=== PATIENT | female | born 1935 | race Caucasian/White ===

== ENCOUNTER → 2018-01-07 11:54 | Outpatient (CLI) | payer OTHER, SELFPAY | PROVIDERS: Family Provider Family Medicine; PCP Family Medicine; Visit Provider Physician Assistant | DX: N39.0 Urinary tract infection, site not specified (principal) | CPT/HCPCS: 87086 ==

== ENCOUNTER 2018-01-08 14:07 | Emergency (ER) | payer OTHER, SELFPAY ==
[2018-01-08] VITALS (8 sets, daily range): BP systolic 96–124; BP diastolic 41–76; PULSE 60–68; RESP 15–22; TEMP 37.2–37.8; O2SAT 93–96
--- NOTE | 2018-01-08 14:32 | PC.NURSE ---
Attempt to void. Unable.
[2018-01-08 15:31] LABS: Add Manual Diff / Slide Review NO; Basophils Percent Auto 0.5 % (0-2); Eosinophils Percent Auto 0.4 % (2-4); Hematocrit 38.2 % (36-46); Hemoglobin 12.8 g/dL (12.0-16.0); Lymphocytes Percent Auto 4.5 % (25-40); Mean Corpuscular HGB Conc 33.5 % (30-36); Mean Corpuscular Hemoglobin 30.7 PG (26-34); Mean Corpuscular Volume 91.6 fL (80-100); Monocytes Percent Auto 5.8 % (3-14); Neutrophils Absolute Auto 12100 /uL (3000-5900); Neutrophils Percent Auto 88.8 % (50-75); Platelet Count 187 X10^3/uL (150-400); Red Blood Cell Count 4.17 X10^6/uL (4.0-5.2); White Blood Cell Count 13.6 X10^3/uL (4.5-11.0)
[2018-01-08] MEDS: SODIUM CHLORIDE 0.9% 1,000 ML 150 ML IV (15:33)
[2018-01-08 15:41] LABS: Alanine Aminotransferase 26 IU/L (9-52); Albumin 4.3 g/dL (3.5-5.0); Albumin Globulin Ratio 1.4 (1.0-2.8); Alkaline Phosphatase 56 U/L (38-126); Aspartate Aminotransferase 28 IU/L (14-36); Blood Urea Nitrogen 28 mg/dL (7-17); Calcium 9.2 mg/dL (8.4-10.2); Carbon Dioxide 25 mmol/L (22-32); Chloride 103 mmol/L (98-107); Estimated Glomerular Filt Rate > 60.0 mL/min (>60); Glucose 129 mg/dL (80-110); HEMOLYSIS < 15 (0-50); Lipase 70 U/L (23-300); Potassium 4.1 mmol/L (3.4-5.1); Sodium 140 mmol/L (137-145); Total Protein 7.3 g/dL (6.3-8.2)
[2018-01-08 15:46] LABS: Lactate (Lactic Acid) 1.7 mmol/L (0.7-2.1)
--- NOTE | 2018-01-08 16:23 | ED_ITS ---
HPI - Abdominal Pain General Chief Complaint: Abdominal Pain Stated Complaint: PAIN RIGHT SIDE,NAUSEA Time Seen by Provider: 01/08/18 15:28 Source: patient and family Mode of arrival: ambulatory Limitations: no limitations History of Present Illness HPI narrative: This 82-year-old female comes in with her daughter today due to vomiting and pain in the right flank area. She developed dysuria and some urinary urgency/frequency yesterday and was seen at the walk-in clinic. She was started on Macrobid. She states that in the middle of the night, she had 2 episodes of vomiting and has felt nauseated. She has tolerated water today but has not had food. She states that pain is much better now, largely resolved. She denies fever, chills, or sweats. She denies any chest pain or dyspnea. No new pain or swelling in her extremities. She feels like the urinary frequency and dysuria are somewhat better today Related Data Home Medications Medication Instructions Recorded Confirmed Disabled Parking Permit 1 dev MISCELLANEOUS DIRECTED 01/08/18 01/08/18 metoprolol tartrate 75 mg PO BID 01/08/18 01/08/18 phenazopyridine 100 mg PO TID PRN 01/08/18 01/08/18 Previous Rx's Medication Instructions Recorded citalopram 10 mg PO QDAY #90 tab 07/16/17 hydroxyzine HCl 25 mg tablet 25 mg PO TID PRN #30 tab 10/02/17 losartan [Cozaar] 50 mg PO QDAY #90 tab 10/29/17 warfarin 5 mg tablet 5 mg PO SEE INSTRUCTIONS #90 tab 11/27/17 donepezil 5 mg tablet 2.5 mg PO BEDTIME #30 tab 12/15/17 nitrofurantoin 100 mg PO BID 7 Days #14 cap 01/07/18 monohydrate/macrocrystals 100 mg capsule ciprofloxacin HCl [Cipro] 500 mg PO BID #14 tab 01/08/18 ondansetron HCl [Zofran] 4 mg PO Q8-12H PRN #4 tab 01/08/18 Allergies Allergy/AdvReac Type Severity Reaction Status Date / Time lisinopril [LISINOPRIL] Allergy Mild cough Verified 01/08/18 14:18 Barbiturates AdvReac Mild HALLUCINATI Verified 01/08/18 14:18 ONS gabapentin [GABAPENTIN] AdvReac Mild dizziness Verified 01/08/18 14:18 hydrochlorothiazide AdvReac Mild dizziness Verified 01/08/18 14:18 [HYDROCHLOROTHIAZIDE] tramadol [TRAMADOL] AdvReac Mild dizziness Verified 01/08/18 14:18 triamterene [TRIAMTERENE] AdvReac Mild dizziness Verified 01/08/18 14:18 Review of Systems Review of Systems All systems reviewed & are unremarkable except as noted in HPI and below PFSH Medical History UTI (urinary tract infection) (Chronic) Hyperlipidemia (Chronic) Essential hypertension (Chronic) Chronic atrial fibrillation (Chronic 10/13/12) On anticoagulant therapy (Chronic 11/03/12) Presence of cardiac pacemaker (Chronic 09/20/14) 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 HEENT: PERRL, EOMI, no scleral icterus NECK: Supple LUNGS: Clear to auscultation bilaterally. HEART: Rate and rhythm regular, normal S1 and S2, no S3 or S4. ABDOMEN: Soft, nondistended, bowel sounds present x 4 quadrants, no masses palpable, no hepatosplenomegaly. Very minimal right flank/upper quadrant tenderness without guarding or rebound. This is difficult to reproduce. EXTREMITIES: No edema, no cyanosis DERMATOLOGIC: No jaundice or exanthem NEUROLOGIC: Alert and oriented with normal speech and coordination Initial Vital Signs Initial Vital Signs: Vital Signs Temperature 100.1 F H 01/08/18 14:18 Pulse Rate 67 01/08/18 14:18 Respiratory Rate 15 01/08/18 14:18 Blood Pressure 124/68 H 01/08/18 14:18 Pulse Oximetry 94 01/08/18 14:18 Course Additional Information: Reviewed findings with Dr. Dobbs who agrees reasonable to treat for pyelonephritis as an outpatient. Patient is afebrile prior to discharge, tolerating food and fluids, and reports pain resolved. She did agree to return if any acutely worsening symptoms again as in that case would need further workup. Her daughter is agreeable with this as well. Discussed black box warning on Cipro but that this is the preferred class of antibiotics for outpatient treatment of pyelonephritis. She does have atrial fibrillation and on warfarin, and was advised of the importance of close follow-up and to have her INR checked in the next couple of days as well. Advised pharmacy to proceed with rx. Reviewed with Dr. Cardoso who is in agreement. Orders Ordered: ED Orders 01/08/18 14:40 Lactate (Lactic Acid) Stat 01/08/18 14:46 Complete Blood Count AUTO DIFF Stat Comprehensive Metabolic Panel Stat Lipase Stat 01/08/18 16:25 Urinalysis and Microscopic Stat Urine Culture Stat Discontinued Medications Sodium Chloride (Normal Saline 0.9%) 1,000 mls @ 150 mls/hr IV CONT JOHN Last Infusion: 01/08/18 18:36 Dose: 0 mls/hr Admin: 01/08/18 15:33 Dose: 150 mls/hr Ondansetron HCl (Zofran) 4 mg IV NOW ONE Stop: 01/08/18 16:20 Last Admin: 01/08/18 16:24 Dose: 4 mg Vital Signs - 8 hr 01/08/18 14:18 01/08/18 15:50 01/08/18 16:26 Temperature 100.1 F H 99.0 F Pulse Rate 67 64 Respiratory Rate 15 18 Blood Pressure 124/68 H Blood Pressure [Right Arm] 110/45 L Pulse Oximetry 94 94 01/08/18 16:49 01/08/18 16:57 01/08/18 17:06 Temperature 99.0 F Pulse Rate 65 68 Respiratory Rate 22 19 Blood Pressure Blood Pressure [Right Arm] 115/42 L 96/41 L Pulse Oximetry 93 95 01/08/18 17:45 01/08/18 18:23 Temperature Pulse Rate 67 60 Respiratory Rate 21 19 Blood Pressure Blood Pressure [Right Arm] 111/58 L 96/76 Pulse Oximetry 94 96 MDM - Abdominal Pain Lab Data Result diagrams: 01/08/18 14:46 01/08/18 14:46 Lab Results 01/08/18 01/08/18 01/08/18 Range/Units 14:40 14:46 14:46 WBC 13.6 H (4.5-11.0) X10^3/uL RBC 4.17 (4.0-5.2) X10^6/uL Hgb 12.8 (12.0-16.0) g/dL Hct 38.2 (36-46) % MCV 91.6 (80-100) fL MCH 30.7 (26-34) PG MCHC 33.5 (30-36) % RDW 13.0 (11.6-14.8) % Plt Count 187 (150-400) X10^3/uL Neut % (Auto) 88.8 H (50-75) % Lymph % (Auto) 4.5 L (25-40) % [place] % (Auto) 5.8 (3-14) % Eos % (Auto) 0.4 L (2-4) % Baso % (Auto) 0.5 (0-2) % Neut # (Auto) 63016 H (6692-6627) /uL Sodium 140 (137-145) mmol/L Potassium 4.1 (3.4-5.1) mmol/L Chloride 103 (98-107) mmol/L Carbon Dioxide 25 (22-32) mmol/L BUN 28 H (7-17) mg/dL Creatinine 0.80 (0.52-1.04) mg/dL Estimated GFR > 60.0 (>60) mL/min BUN/Creatinine Ratio 35.0 H (6-22) Glucose 129 H (80-110) mg/dL Lactate 1.7 (0.7-2.1) mmol/L Calcium 9.2 (8.4-10.2) mg/dL Total Bilirubin 1.0 (0.2-1.3) mg/dL AST 28 (14-36) IU/L ALT 26 (9-52) IU/L Alkaline Phosphatase 56 (38-126) U/L Total Protein 7.3 (6.3-8.2) g/dL Albumin 4.3 (3.5-5.0) g/dL Globulin 3.0 (1.7-4.1) g/dL Albumin/Globulin Ratio 1.4 (1.0-2.8) Lipase 70 (23-300) U/L Urine Color Urine Appearance Urine pH (4.5-8.0) Ur Specific [place] (1.000-1.035) Urine Protein (Negative) Urine Glucose (UA) (Normal) g/dL Urine Ketones (NEGATIVE) Urine Occult Blood (Negative) Urine Nitrate (Negative) Urine Bilirubin (NEGATIVE) Urine Urobilinogen (0.2) E.U./dL Ur Leukocyte Esterase (NEGATIVE) Urine RBC (0-5/HPF) Urine WBC (0-5/HPF) Urine Bacteria (None) Ur Culture Indicated? Micro UA Comment 01/08/18 Range/Units 16:25 WBC (4.5-11.0) X10^3/uL RBC (4.0-5.2) X10^6/uL Hgb (12.0-16.0) g/dL Hct (36-46) % MCV (80-100) fL MCH (26-34) PG MCHC (30-36) % RDW (11.6-14.8) % Plt Count (150-400) X10^3/uL Neut % (Auto) (50-75) % Lymph % (Auto) (25-40) % [place] % (Auto) (3-14) % Eos % (Auto) (2-4) % Baso % (Auto) (0-2) % Neut # (Auto) (8867-1324) /uL Sodium (137-145) mmol/L Potassium (3.4-5.1) mmol/L Chloride (98-107) mmol/L Carbon Dioxide (22-32) mmol/L BUN (7-17) mg/dL Creatinine (0.52-1.04) mg/dL Estimated GFR (>60) mL/min BUN/Creatinine Ratio (6-22) Glucose (80-110) mg/dL Lactate (0.7-2.1) mmol/L Calcium (8.4-10.2) mg/dL Total Bilirubin (0.2-1.3) mg/dL AST (14-36) IU/L ALT (9-52) IU/L Alkaline Phosphatase (38-126) U/L Total Protein (6.3-8.2) g/dL Albumin (3.5-5.0) g/dL Globulin (1.7-4.1) g/dL Albumin/Globulin Ratio (1.0-2.8) Lipase (23-300) U/L Urine Color Yellow Urine Appearance Clear Urine pH 6.0 (4.5-8.0) Ur Specific [place] 1.025 (1.000-1.035) Urine Protein 1+ H (Negative) Urine Glucose (UA) Negative (Normal) g/dL Urine Ketones Negative (NEGATIVE) Urine Occult Blood 3+ H (Negative) Urine Nitrate Positive H (Negative) Urine Bilirubin Negative (NEGATIVE) Urine Urobilinogen 0.2 (0.2) E.U./dL Ur Leukocyte Esterase Trace H (NEGATIVE) Urine RBC 10-30/hpf H (0-5/HPF) Urine WBC 5-10/hpf H (0-5/HPF) Urine Bacteria None seen (None) Ur Culture Indicated? Specimen cultured Micro UA Comment Not Reportable Discharge Plan Departure Patient Disposition: Home, Self-Care Clinical Impression: Acute pyelonephritis Discharge Date/Time: 01/08/18 18:55 Interventions: ED Discharge Assessment Last Done: 01/08/18 18:54 Instructions: DI for Kidney Infection Activity Restrictions/Additional Instructions: Based on your exam and findings today it appears that you have a kidney infection rather than a simple bladder infection. Please discontinue the antibiotic you were prescribed yesterday, and change to ciprofloxacin, which I have sent to the pharmacy for you. Take that twice daily for the next week. I have also sent a prescription for a few nausea pills to the pharmacy in case you need them. You should return as we talked about if you are feeling worse again, i.e. if you start to have vomiting or any worsening pain again, or new fevers at home, because we do not have your urine culture back yet from today. As we discussed, we will want to do further testing if you are worse again or not getting better. Please be sure to call your PCP 1st thing tomorrow as you should repeat your INR in the next couple of days while on the antibiotics and you should be seen for follow-up in the next few days as well. Prescriptions: New ondansetron HCl [Zofran] 4 mg tablet 4 mg PO Q8-12H PRN (Reason: nausea and vomiting) Qty: 4 RF: 0 ciprofloxacin HCl [Cipro] 500 mg tablet 500 mg PO BID Qty: 14 RF: 0 No Action hydroxyzine HCl 25 mg tablet 25 mg PO TID PRN (Reason: pruritus) Qty: 30 RF: 0 nitrofurantoin monohyd/m-cryst 100 mg capsule 100 mg PO BID 7 Days Qty: 14 RF: 0 citalopram 10 MG tablet 10 mg PO QDAY Qty: 90 RF: 1 losartan [Cozaar] 50 mg tablet 50 mg PO QDAY Qty: 90 RF: 3 warfarin [Coumadin] 5 mg tablet 5 mg PO SEE INSTRUCTIONS Qty: 90 RF: 3 donepezil [Aricept] 5 mg tablet 2.5 mg PO BEDTIME Qty: 30 RF: 1 metoprolol tartrate 50 mg Tablet 75 mg PO BID RF: 0 Disabled Parking Permit 1 dev miscellaneous DIRECTED RF: 0 phenazopyridine 100 mg Tablet 100 mg PO TID PRN (Reason: pain) RF: 0 Referrals: Zane Shine MD [Primary Care Provider] -
[2018-01-08] MEDS: ONDANSETRON 4 MG/2 ML INJ IV (16:24)
[2018-01-08 16:56] LABS: Bacteria Urine None Seen
[2018-01-08 17:04] LABS: Appearance Urine UA CLEAR; Bilirubin Urine UA NEGATIVE (NEGATIVE); Color Urine UA YELLOW; Glucose Urine UA NEGATIVE (Normal); Ketones Urine UA NEGATIVE (NEGATIVE); Leukocyte Esterase Urine UA TRACE (NEGATIVE); Nitrite Urine UA POSITIVE (Negative); Occult Blood Urine UA 3+ (Negative); Protein Urine UA 1+ (Negative); Specific Gravity Urine UA 1.025 (1.000-1.035); Urobilinogen Urine UA 0.2 E.U./dL (0.2)
[2018-01-08 17:11] LABS: RBC Urine 10-30/HPF (0-5/HPF); WBC Urine 5-10/HPF (0-5/HPF)
[2018-01-08 17:12] LABS: Culture Indicated Urine Specimen Cultured
== END 2018-01-08 18:55 | disposition home or self-care (01) ==
LOC: ED 14:10 → AC 14:18
PROVIDERS: Emergency Provider Internal Medicine; Family Provider Family Medicine; PCP Family Medicine
DX: N12 Tubulo-interstitial nephritis, not specified as acute or chronic (principal)
CPT/HCPCS: 36591; 80053; 81001; 83605; 83690; 85025; 87086; 96361; 96374; 99283; 99284; J2405

== ENCOUNTER 2018-01-10 17:24 | Emergency (ER) | payer OTHER, SELFPAY ==
[2018-01-10 17:31] VITALS: BP 138/72; PULSE 60; RESP 18; TEMP 36.4; O2SAT 97
--- NOTE | 2018-01-10 17:32 | ED.GENADULT ---
HPI - General Adult <Brien EspinolexxkarenBARB - Last Filed: 01/10/18 22:03> General Chief complaint: GI Bleed Stated complaint: RECHECK FOR LABS,INR Time Seen by Provider: 01/10/18 17:29 Source: patient Mode of arrival: ambulatory Limitations: no limitations History of Present Illness HPI narrative: 82-year-old female recently treated for pyelonephritis with ciprofloxacin a couple of days ago here for recheck of her labs. She is concerned because she saw some blood on the toilet paper when she wiped earlier today after having a bowel movement. She states that she only had blood on the toilet paper when she wiped no continuous bleeding. She denies any trauma to the area. She states no bleeding at this time. She reports that her urinary symptoms have improved since taking the antibiotics. No fevers no chills no nausea or vomiting. She denies having any abdominal pain at this time. Related Data Home Medications Medication Instructions Recorded Confirmed Disabled Parking Permit 1 dev MISCELLANEOUS DIRECTED 01/08/18 01/08/18 metoprolol tartrate 75 mg PO BID 01/08/18 01/08/18 phenazopyridine 100 mg PO TID PRN 01/08/18 01/08/18 Previous Rx's Medication Instructions Recorded citalopram 10 mg PO QDAY #90 tab 07/16/17 hydroxyzine HCl 25 mg tablet 25 mg PO TID PRN #30 tab 10/02/17 losartan [Cozaar] 50 mg PO QDAY #90 tab 10/29/17 warfarin 5 mg tablet 5 mg PO SEE INSTRUCTIONS #90 tab 11/27/17 donepezil 5 mg tablet 2.5 mg PO BEDTIME #30 tab 12/15/17 nitrofurantoin 100 mg PO BID 7 Days #14 cap 01/07/18 monohydrate/macrocrystals 100 mg capsule ciprofloxacin HCl [Cipro] 500 mg PO BID #14 tab 01/08/18 ondansetron HCl [Zofran] 4 mg PO Q8-12H PRN #4 tab 01/08/18 Allergies Allergy/AdvReac Type Severity Reaction Status Date / Time lisinopril [LISINOPRIL] Allergy Mild cough Verified 01/08/18 14:18 Barbiturates AdvReac Mild HALLUCINATI Verified 08/09/18 14:18 ONS gabapentin [GABAPENTIN] AdvReac Mild dizziness Verified 01/08/18 14:18 hydrochlorothiazide AdvReac Mild dizziness Verified 01/08/18 14:18 [HYDROCHLOROTHIAZIDE] tramadol [TRAMADOL] AdvReac Mild dizziness Verified 01/08/18 14:18 triamterene [TRIAMTERENE] AdvReac Mild dizziness Verified 01/08/18 14:18 Review of Systems <BARB Stokes - Last Filed: 01/10/18 22:03> Constitutional Denies chills, Denies fever(s), Denies lethargy and Denies weakness Eyes Denies change in vision, Denies eye discharge, Denies irritation and Denies loss of vision ENT Ears, Nose, Mouth, and Throat: Denies change in voice, Denies neck pain and Denies sore throat Cardiovascular Denies chest pain, Denies irregular heart rhythm, Denies lightheadedness, Denies palpitations, Denies dyspnea, Denies dyspnea on exertion and Denies orthopnea Respiratory Denies cough, Denies dyspnea, Denies dyspnea on exertion and Denies wheezing Gastrointestinal Comments: Blood on toilet paper after bowel movement today Genitourinary Denies hematuria, Denies flank pain, Denies urinary incontinence and Denies urinary urgency Musculoskeletal Denies neck pain Integumentary/Breasts Denies pruritus, Denies erythema, Denies rash and Denies wounds Neurologic Denies confusion, Denies loss of vision and Denies weakness Psychiatric Denies anxiety, Denies confusion, Denies depression, Denies homicidal ideation and Denies suicidal ideation Endocrine Denies palpitations Hematologic/Lymphatic Denies easy bruising Allergic/Immunologic Denies wheezing Exam <BARB Stokes - Last Filed: 01/10/18 22:03> Initial Vital Signs Initial Vital Signs: Vital Signs Temperature 97.6 F 01/10/18 17:31 Pulse Rate 60 01/10/18 17:31 Respiratory Rate 18 01/10/18 17:31 Blood Pressure 138/72 H 01/10/18 17:31 Pulse Oximetry 97 01/10/18 17:31 Const General: cooperative and well developed Nutritional Appearance: well nourished Orientation: alert, awake, oriented x3 and not confused HENMT Mouth: oral mucosae normal and moist mucous membranes Eyes Conjunctivae: conjunctivae normal Sclera: sclerae normal Pupils: PERRL EOM: EOM intact bilaterally Resp Effort & Inspection: normal respiratory effort, able to speak in complete sentences, no respiratory distress and no use of accessory muscles Auscultation: clear to auscultation bilaterally, no rales, no rhonchi and no wheezes Cardio Rate: regular rate Rhythm: regular rhythm Heart Sounds: no click, no gallops, no murmurs and no rubs GI Inspection: non-distended Palpation: soft, no hepatosplenomegaly, No guarding, No pulsatile mass and No tender Auscultation: normal bowel sounds Rectal Exam: normal sphincter tone, heme negative stool and hemorrhoids General: No CVA tenderness Neuro General: alert, oriented x3, gait normal and no focal motor deficits Speech: speech normal <Tammy River DO - Last Filed: 01/11/18 02:27> Initial Vital Signs Initial Vital Signs: Vital Signs Temperature 97.6 F 01/10/18 17:31 Pulse Rate 60 01/10/18 17:31 Respiratory Rate 18 01/10/18 17:31 Blood Pressure 138/72 H 01/10/18 17:31 Pulse Oximetry 97 01/10/18 17:31 Course <BARB Stokes - Last Filed: 01/10/18 22:03> Orders Ordered: ED Orders 01/10/18 18:35 Urine Microscopic Stat 01/10/18 18:45 Complete Blood Count AUTO DIFF Stat Comprehensive Metabolic Panel Stat Prothrombin Time INR Stat Vital Signs - 8 hr 01/10/18 18:52 01/10/18 20:05 Temperature 97.0 F L 98.2 F Pulse Rate 60 60 Respiratory Rate 16 16 Blood Pressure [Left Arm] 137/70 H 138/72 H Pulse Oximetry 96 97 <DO Esteban Majano Last Filed: 01/11/18 02:27> Orders Ordered: ED Orders 01/10/18 18:35 Urine Microscopic Stat 01/10/18 18:45 Complete Blood Count AUTO DIFF Stat Comprehensive Metabolic Panel Stat Prothrombin Time INR Stat Vital Signs - 8 hr 01/10/18 18:52 01/10/18 20:05 Temperature 97.0 F L 98.2 F Pulse Rate 60 60 Respiratory Rate 16 16 Blood Pressure [Left Arm] 137/70 H 138/72 H Pulse Oximetry 96 97 Medical Decision Making <BARB Stokes Last Filed: 01/10/18 22:03> MDM Narrative Medical decision making narrative: CBC and Chem panel were obtained were unremarkable. INR was 1.8. POC urinalysis was negative for urinary tract infection. Stool guaiac was negative signs and symptoms presents as slight amount of bleeding due to hemorrhoids from bowel movement earlier today. She is encouraged to follow up with the primary care provider next week. Continue taking antibiotics as prescribed. For any worsening symptoms return to the emergency room. Lab Data Result diagrams: 01/10/18 18:45 01/10/18 18:45 Lab Results 01/10/18 01/10/18 01/10/18 Range/Units 18:35 18:45 18:45 WBC 5.3 (4.5-11.0) X10^3/uL RBC 4.16 (4.0-5.2) X10^6/uL Hgb 12.7 (12.0-16.0) g/dL Hct 38.1 (36-46) % MCV 91.6 (80-100) fL MCH 30.6 (26-34) PG MCHC 33.4 (30-36) % RDW 13.1 (11.6-14.8) % Plt Count 205 (150-400) X10^3/uL Neut % (Auto) 54.7 (50-75) % Lymph % (Auto) 23.4 L (25-40) % [place] % (Auto) 13.9 (3-14) % Eos % (Auto) 6.7 H (2-4) % Baso % (Auto) 1.3 (0-2) % Neut # (Auto) 2900 L (0432-0127) /uL PT 19.7 H (10.1-12.7) SECONDS INR 1.8 H (0.9-1.3) Sodium (137-145) mmol/L Potassium (3.4-5.1) mmol/L Chloride (98-107) mmol/L Carbon Dioxide (22-32) mmol/L BUN (7-17) mg/dL Creatinine (0.52-1.04) mg/dL Estimated GFR (>60) mL/min BUN/Creatinine Ratio (6-22) Glucose (80-110) mg/dL Calcium (8.4-10.2) mg/dL Total Bilirubin (0.2-1.3) mg/dL AST (14-36) IU/L ALT (9-52) IU/L Alkaline Phosphatase (38-126) U/L Total Protein (6.3-8.2) g/dL Albumin (3.5-5.0) g/dL Globulin (1.7-4.1) g/dL Albumin/Globulin Ratio (1.0-2.8) Urine RBC None seen (0-5/HPF) Urine WBC None seen (0-5/HPF) Urine Bacteria None seen (None) Ur Culture Indicated? Not Reportable Micro UA Comment Not Reportable 01/10/18 Range/Units 18:45 WBC (4.5-11.0) X10^3/uL RBC (4.0-5.2) X10^6/uL Hgb (12.0-16.0) g/dL Hct (36-46) % MCV (80-100) fL MCH (26-34) PG MCHC (30-36) % RDW (11.6-14.8) % Plt Count (150-400) X10^3/uL Neut % (Auto) (50-75) % Lymph % (Auto) (25-40) % [place] % (Auto) (3-14) % Eos % (Auto) (2-4) % Baso % (Auto) (0-2) % Neut # (Auto) (5169-6207) /uL PT (10.1-12.7) SECONDS INR (0.9-1.3) Sodium 140 (137-145) mmol/L Potassium 4.5 (3.4-5.1) mmol/L Chloride 104 (98-107) mmol/L Carbon Dioxide 30 (22-32) mmol/L BUN 28 H (7-17) mg/dL Creatinine 0.90 (0.52-1.04) mg/dL Estimated GFR 59.9 L (>60) mL/min BUN/Creatinine Ratio 31.1 H (6-22) Glucose 106 (80-110) mg/dL Calcium 9.2 (8.4-10.2) mg/dL Total Bilirubin 0.4 (0.2-1.3) mg/dL AST 27 (14-36) IU/L ALT 28 (9-52) IU/L Alkaline Phosphatase 66 (38-126) U/L Total Protein 7.2 (6.3-8.2) g/dL Albumin 4.2 (3.5-5.0) g/dL Globulin 3.0 (1.7-4.1) g/dL Albumin/Globulin Ratio 1.4 (1.0-2.8) Urine RBC (0-5/HPF) Urine WBC (0-5/HPF) Urine Bacteria (None) Ur Culture Indicated? Micro UA Comment <Tammy River, DO - Last Filed: 01/11/18 02:27> Lab Data Lab Results 01/10/18 01/10/18 01/10/18 Range/Units 18:35 18:45 18:45 WBC 5.3 (4.5-11.0) X10^3/uL RBC 4.16 (4.0-5.2) X10^6/uL Hgb 12.7 (12.0-16.0) g/dL Hct 38.1 (36-46) % MCV 91.6 (80-100) fL MCH 30.6 (26-34) PG MCHC 33.4 (30-36) % RDW 13.1 (11.6-14.8) % Plt Count 205 (150-400) X10^3/uL Neut % (Auto) 54.7 (50-75) % Lymph % (Auto) 23.4 L (25-40) % [place] % (Auto) 13.9 (3-14) % Eos % (Auto) 6.7 H (2-4) % Baso % (Auto) 1.3 (0-2) % Neut # (Auto) 2900 L (7757-0246) /uL PT 19.7 H (10.1-12.7) SECONDS INR 1.8 H (0.9-1.3) Sodium (137-145) mmol/L Potassium (3.4-5.1) mmol/L Chloride (98-107) mmol/L Carbon Dioxide (22-32) mmol/L BUN (7-17) mg/dL Creatinine (0.52-1.04) mg/dL Estimated GFR (>60) mL/min BUN/Creatinine Ratio (6-22) Glucose (80-110) mg/dL Calcium (8.4-10.2) mg/dL Total Bilirubin (0.2-1.3) mg/dL AST (14-36) IU/L ALT (9-52) IU/L Alkaline Phosphatase (38-126) U/L Total Protein (6.3-8.2) g/dL Albumin (3.5-5.0) g/dL Globulin (1.7-4.1) g/dL Albumin/Globulin Ratio (1.0-2.8) Urine RBC None seen (0-5/HPF) Urine WBC None seen (0-5/HPF) Urine Bacteria None seen (None) Ur Culture Indicated? Not Reportable Micro UA Comment Not Reportable 01/10/18 Range/Units 18:45 WBC (4.5-11.0) X10^3/uL RBC (4.0-5.2) X10^6/uL Hgb (12.0-16.0) g/dL Hct (36-46) % MCV (80-100) fL MCH (26-34) PG MCHC (30-36) % RDW (11.6-14.8) % Plt Count (150-400) X10^3/uL Neut % (Auto) (50-75) % Lymph % (Auto) (25-40) % [place] % (Auto) (3-14) % Eos % (Auto) (2-4) % Baso % (Auto) (0-2) % Neut # (Auto) (6592-8013) /uL PT (10.1-12.7) SECONDS INR (0.9-1.3) Sodium 140 (137-145) mmol/L Potassium 4.5 (3.4-5.1) mmol/L Chloride 104 (98-107) mmol/L Carbon Dioxide 30 (22-32) mmol/L BUN 28 H (7-17) mg/dL Creatinine 0.90 (0.52-1.04) mg/dL Estimated GFR 59.9 L (>60) mL/min BUN/Creatinine Ratio 31.1 H (6-22) Glucose 106 (80-110) mg/dL Calcium 9.2 (8.4-10.2) mg/dL Total Bilirubin 0.4 (0.2-1.3) mg/dL AST 27 (14-36) IU/L ALT 28 (9-52) IU/L Alkaline Phosphatase 66 (38-126) U/L Total Protein 7.2 (6.3-8.2) g/dL Albumin 4.2 (3.5-5.0) g/dL Globulin 3.0 (1.7-4.1) g/dL Albumin/Globulin Ratio 1.4 (1.0-2.8) Urine RBC (0-5/HPF) Urine WBC (0-5/HPF) Urine Bacteria (None) Ur Culture Indicated? Micro UA Comment Discharge Plan Departure Patient Disposition: Home, Self-Care Clinical Impression: Bleeding hemorrhoid Discharge Date/Time: 01/10/18 20:47 Interventions: ED Discharge Assessment Last Done: 01/10/18 20:46 Instructions: DI for Hemorrhoids Activity Restrictions/Additional Instructions: Laboratory results today were unremarkable. Signs and symptoms presents as bleeding due to a hemorrhoid. Follow up with her primary care provider this week. Return emergency room for any worsening symptoms. Continue taking antibiotics as prescribed. Prescriptions: No Action hydroxyzine HCl 25 mg tablet 25 mg PO TID PRN (Reason: pruritus) Qty: 30 RF: 0 nitrofurantoin monohyd/m-cryst 100 mg capsule 100 mg PO BID 7 Days Qty: 14 RF: 0 citalopram 10 MG tablet 10 mg PO QDAY Qty: 90 RF: 1 losartan [Cozaar] 50 mg tablet 50 mg PO QDAY Qty: 90 RF: 3 warfarin [Coumadin] 5 mg tablet 5 mg PO SEE INSTRUCTIONS Qty: 90 RF: 3 donepezil [Aricept] 5 mg tablet 2.5 mg PO BEDTIME Qty: 30 RF: 1 metoprolol tartrate 50 mg Tablet 75 mg PO BID RF: 0 Disabled Parking Permit 1 dev miscellaneous DIRECTED RF: 0 phenazopyridine 100 mg Tablet 100 mg PO TID PRN (Reason: pain) RF: 0 ondansetron HCl [Zofran] 4 mg tablet 4 mg PO Q8-12H PRN (Reason: nausea and vomiting) Qty: 4 RF: 0 ciprofloxacin HCl [Cipro] 500 mg tablet 500 mg PO BID Qty: 14 RF: 0 Referrals: Zane Shine MD [Primary Care Provider] - <Tammy River DO - Last Filed: 01/11/18 02:27> Cosign ED Attending Cosignature Attestation: I was immediately available in the department for consultation. Documentation has been reviewed. I agree with assessment and plan.
[2018-01-10 18:52] VITALS: BP 137/70; PULSE 60; RESP 16; TEMP 36.1; O2SAT 96
[2018-01-10 18:59] LABS: INR 1.8 (0.9-1.3); Prothrombin Time 19.7 SECONDS (10.1-12.7)
[2018-01-10 18:59] LABS: Bacteria Urine None Seen; RBC Urine None Seen (0-5/HPF); WBC Urine None Seen (0-5/HPF)
[2018-01-10 19:04] LABS: Alanine Aminotransferase 28 IU/L (9-52); Albumin 4.2 g/dL (3.5-5.0); Albumin Globulin Ratio 1.4 (1.0-2.8); Alkaline Phosphatase 66 U/L (38-126); Aspartate Aminotransferase 27 IU/L (14-36); BUN Creatinine Ratio 31.1 (6-22); Bilirubin Total 0.4 mg/dL (0.2-1.3); Blood Urea Nitrogen 28 mg/dL (7-17); Calcium 9.2 mg/dL (8.4-10.2); Carbon Dioxide 30 mmol/L (22-32); Chloride 104 mmol/L (98-107); Estimated Glomerular Filt Rate 59.9 mL/min (>60); Glucose 106 mg/dL (80-110); HEMOLYSIS < 15 (0-50); Potassium 4.5 mmol/L (3.4-5.1); Sodium 140 mmol/L (137-145); Total Protein 7.2 g/dL (6.3-8.2)
[2018-01-10 19:41] LABS: Mean Corpuscular Hemoglobin 30.6 PG (26-34); Neutrophils Absolute Auto 2900 /uL (3000-5900); Red Cell Distribution Width 13.1 % (11.6-14.8)
[2018-01-10 20:05] VITALS: BP 138/72; PULSE 60; RESP 16; TEMP 36.8; O2SAT 97
[2018-01-10 20:07] LABS: Add Manual Diff / Slide Review NO; Basophils Percent Auto 1.3 % (0-2); Eosinophils Percent Auto 6.7 % (2-4); Hematocrit 38.1 % (36-46); Hemoglobin 12.7 g/dL (12.0-16.0); Lymphocytes Percent Auto 23.4 % (25-40); Mean Corpuscular HGB Conc 33.4 % (30-36); Mean Corpuscular Volume 91.6 fL (80-100); Monocytes Percent Auto 13.9 % (3-14); Neutrophils Percent Auto 54.7 % (50-75); Platelet Count 205 X10^3/uL (150-400); Red Blood Cell Count 4.16 X10^6/uL (4.0-5.2); White Blood Cell Count 5.3 X10^3/uL (4.5-11.0)
== END 2018-01-10 20:47 | disposition home or self-care (01) ==
PROVIDERS: Emergency Provider Nurse Practitioner Family; Family Provider Family Medicine; PCP Family Medicine
DX: K64.9 Unspecified hemorrhoids (principal)
CPT/HCPCS: 36415; 80053; 81003; 81015; 85025; 85610; 99282; 99283

== ENCOUNTER → 2018-02-07 11:08 | Outpatient (CLI) | payer OTHER, SELFPAY ==
[2018-02-07 11:36] LABS: INR 2.5 (0.9-1.3); Prothrombin Time 28.2 SECONDS (10.1-12.7)
== END ==
PROVIDERS: Family Provider Family Medicine; PCP Family Medicine; Visit Provider Family Medicine
DX: Z79.01 Long term (current) use of anticoagulants (principal); I48.2 Chronic atrial fibrillation
CPT/HCPCS: 36415; 85610

== ENCOUNTER → 2018-03-07 10:48 | Outpatient (CLI) | payer OTHER, SELFPAY ==
[2018-03-07 12:00] LABS: INR 1.9 (0.9-1.3)
== END ==
PROVIDERS: Family Provider Family Medicine; PCP Family Medicine; Visit Provider Family Medicine
DX: I48.2 Chronic atrial fibrillation (principal)
CPT/HCPCS: 85610

== ENCOUNTER → 2018-04-04 11:00 | Outpatient (CLI) | payer OTHER, SELFPAY ==
[2018-04-04 11:58] LABS: INR 2.4 (0.9-1.3); Prothrombin Time 25.8 SECONDS (10.1-12.7)
== END ==
PROVIDERS: PCP Family Medicine; Visit Provider Family Medicine
DX: I48.2 Chronic atrial fibrillation (principal); Z79.01 Long term (current) use of anticoagulants
CPT/HCPCS: 36415; 85610

== ENCOUNTER 2018-04-11 13:54 | Emergency (ER) | payer OTHER, SELFPAY ==
[2018-04-11 14:21] VITALS: BP 126/76; PULSE 60; RESP 16; TEMP 36.4; O2SAT 94; BMI 22.4
--- NOTE | 2018-04-11 15:54 | DI.RAD.S_ITS ---
PROCEDURE: XR HIP W PEL IF DONE LT 2V INDICATIONS: fall with severe pain TECHNIQUE: AP pelvis with lateral view(s) of the left hip(s). COMPARISON: [facility], , [id number] W PEL IF PERFORMED, 10/12/2016, 9:33. FINDINGS: Bones: No fractures or dislocations. Pelvic ring appears intact. No suspicious bony lesions. Soft tissues: The visualized bowel gas pattern is normal. No suspicious soft tissue calcifications. IMPRESSION: No visualized acute fracture or dislocation. However, if clinical concern and/or pain persist, short interval imaging followup in 7-10 days is recommended, as occult injury cannot be definitively excluded. Dictated by: Georgina Bhat M.D. on 04/11/2018 at 16:25 Approved by: Georgina Bhat M.D. on 04/11/2018 at 16:26
--- NOTE | 2018-04-11 15:54 | DI.RAD.S_ITS ---
PROCEDURE: XR LUMBAR SPINE 2-3V INDICATIONS: fall with lumbar pain TECHNIQUE: 3 views of the lumbar spine were acquired. COMPARISON: [facility], , L-SPINE 2-3 VIEWS, 04/13/2012, 14:16. FINDINGS: Bones: 5 lyq-efr-wkictsk vertebrae are present. There is trace retrolisthesis of L3 on L4. Severe disc space narrowing is present at L2-3, L5-S1, moderate remainder of the lumbar spine. Severe foraminal narrowing is present L5-S1, moderate at L2-3, L3-4 and L4-5. No suspicious bony lesions. There is slight increased sclerosis at the inferior endplate of L2 and superior endplate of L3 Soft tissues: Overlying bowel gas pattern is normal. No suspicious soft tissue calcifications. IMPRESSION: 1. Multiple degenerative changes. 2. Increased sclerosis at the endplates of L2 and L3 as above. This could be related to degenerative change. There is no appreciable compression deformity. However, given history of trauma, if there is pain within this region, endplate fracture cannot be excluded. Dictated by: Georgina Bhat M.D. on 04/11/2018 at 16:26 Approved by: Georgina Bhat M.D. on 04/11/2018 at 16:29
--- NOTE | 2018-04-11 15:56 | ED.FALL ---
HPI - Fall General Chief Complaint: Fall Stated Complaint: fall 2 weeks ago, butt hurts Time Seen by Provider: 04/11/18 15:53 Source: patient and family Mode of arrival: ambulatory Limitations: no limitations History of Present Illness HPI Narrative: 82-year-old nonsmoker presents with her daughter for evaluation of ongoing but pain since a fall about 2 weeks ago. The patient has been dealing with increasing episodes of ataxia which have been addressed by her primary care provider. She has falls on the occasion but is now suffered 2 in the past 2 weeks. In the initial fall it is unclear of the etiology but she states she thinks she just stumbled and fell back onto her bottom. She has been ambulating ever since but it causes her some discomfort when she sits. She had a secondary fall which was witnessed by family and she was just a bit unsteady and fell, lightly striking her head and causing a mild abrasion. There is no evidence of injury at this point time. The patient did not suffer a loss of consciousness vomiting or any change in mentation. Her pain tends to be worse when she sits and on occasion flares up after walking for a bit. She denies any numbness, tingling or weakness in her extremities MD complaint: fall Onset (ago): week(s) Fall from: standing Fall witnessed: no Place fall occurred: home Loss of consciousness: none Prolonged down time: no Context: history of frequent falls Location of injury: buttocks Related Data Home Medications Medication Instructions Recorded Confirmed Disabled Parking Permit 1 dev MISCELLANEOUS DIRECTED 01/08/18 01/28/18 metoprolol tartrate 75 mg PO BID 01/08/18 01/28/18 phenazopyridine 100 mg PO TID PRN 01/08/18 01/28/18 Previous Rx's Medication Instructions Recorded citalopram 10 mg PO QDAY #90 tab 07/16/17 hydroxyzine HCl 25 mg tablet 25 mg PO TID PRN #30 tab 10/02/17 losartan [Cozaar] 50 mg PO QDAY #90 tab 10/29/17 warfarin 5 mg tablet 5 mg PO SEE INSTRUCTIONS #90 tab 11/27/17 ondansetron HCl [Zofran] 4 mg PO Q8-12H PRN #4 tab 01/08/18 donepezil 5 mg tablet 5 mg PO BEDTIME #30 tab 01/28/18 Allergies Allergy/AdvReac Type Severity Reaction Status Date / Time lisinopril [LISINOPRIL] Allergy Mild cough Verified 04/11/18 14:26 Barbiturates AdvReac Mild HALLUCINATI Verified 04/11/18 14:26 ONS gabapentin [GABAPENTIN] AdvReac Mild dizziness Verified 04/11/18 14:26 hydrochlorothiazide AdvReac Mild dizziness Verified 04/11/18 14:26 [HYDROCHLOROTHIAZIDE] tramadol [TRAMADOL] AdvReac Mild dizziness Verified 04/11/18 14:26 triamterene [TRIAMTERENE] AdvReac Mild dizziness Verified 04/11/18 14:26 Review of Systems Review of Systems All systems reviewed & are unremarkable except as noted in HPI and below Constitutional Denies chills, Denies fever(s), Reports frequent falls, Denies lethargy and Denies weakness Eyes Denies change in vision, Denies eye discharge, Denies irritation and Denies loss of vision ENT Ears, Nose, Mouth, and Throat: Denies change in voice, Denies neck pain and Denies sore throat Cardiovascular Denies chest pain, Denies irregular heart rhythm, Denies lightheadedness, Denies palpitations, Denies dyspnea, Denies dyspnea on exertion and Denies orthopnea Respiratory Denies cough, Denies dyspnea, Denies dyspnea on exertion and Denies wheezing Gastrointestinal Gastrointestinal: Denies abdominal pain, Denies change in bowel habits, Denies diarrhea, Denies nausea and Denies vomiting Genitourinary Denies hematuria, Denies flank pain, Denies urinary incontinence and Denies urinary urgency Musculoskeletal Reports back pain and Denies neck pain Integumentary/Breasts Denies pruritus, Denies erythema, Denies rash and Denies wounds Neurologic Denies confusion, Reports frequent falls, Denies loss of vision and Denies weakness Psychiatric Denies anxiety, Denies confusion, Denies depression, Denies homicidal ideation and Denies suicidal ideation Endocrine Denies palpitations Hematologic/Lymphatic Denies easy bruising Allergic/Immunologic Denies wheezing Exam Narrative Exam Narrative: GEN: pleasant 82-year-old female is A&O x3, GCS 15, no obvious distress HEAD: no obvious injury. No abrasion, contusion, hematoma, or laceration EYES: Pupils are equal, round, and reactive to light and accommodation. Extraoccular muscles are intact bilaterally. There is no subconjunctival hemorrhage or exudate. CHEST: Lungs are clear to auscultation bilaterally and free of wheezes, rales, or rhonchi. Heart rate is regular rhythm, there are no murmurs, clicks, rubs, or gallops. There is no chest wall tenderness. ABD: Abdomen is soft and nontender. There is no guarding or rebound. Bowel sounds are normal in all 4 quadrants. There is no mass or organomegaly. EXT: Full painless ROM of all extremities with no loss of sensation or strength. BACK: she points to her coccyx, but I am unable to significantly reproduce her pain SKIN: Warm, pink, and dry. 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) Memory impairment (Chronic 04/23/16) Cardiac arrhythmia (Chronic) IBS (irritable bowel syndrome) (Chronic) Surgical History Presence of cardiac pacemaker (Resolved) S/P total abdominal hysterectomy and bilateral salpingo-oophorectomy (Resolved) Status post cholecystectomy (Resolved) Status post dilation and curettage (Resolved) Status post tubal ligation (Resolved) Family History Father Rheumatoid arthritis Mother Breast cancer Social History marital status: Smoking Status: Never smoker alcohol intake: current (ON OCCASION ) Course Orders Ordered: ED Orders 04/11/18 15:54 XR hip w pel if done LT 2V Stat XR lumbar spine 2-3V Stat Discontinued Medications Ibuprofen (Advil) 400 mg PO NOW ONE Stop: 04/11/18 15:55 Last Admin: 04/11/18 15:57 Dose: 400 mg Vital Signs - 8 hr 04/11/18 14:21 04/11/18 16:54 Temperature 97.6 F Pulse Rate 60 60 Respiratory Rate 16 16 Blood Pressure 126/76 127/77 Pulse Oximetry 94 96 MDM - Fall Medical Records Attestation: I reviewed the patient's medical records. Lab Data Attestation: I reviewed the patient's lab results. Imaging Data Pelvis/Hip/LSpine Xray: Radiologist's impression: [address] [address] XRay Report Signed Patient: Ange Hannah EMR#: [id number] : 6Acct:[id number] Age/Sex: 82 / FDate of Service: 04/11/18 Loc: ED Accession Number: [id number] Procedure: XR lumbar spine 2-3V Ordering Provider: Kyle Her D.O. PROCEDURE: XR LUMBAR SPINE 2-3V INDICATIONS: fall with lumbar pain TECHNIQUE: 3 views of the lumbar spine were acquired. COMPARISON: [facility], , L-SPINE 2-3 VIEWS, 04/13/2012, 14:16. FINDINGS: Bones: 5 [id number]-deavjah vertebrae are present. There is trace retrolisthesis of L3 on L4. Severe disc space narrowing is present at L2-3, L5-S1, moderate remainder of the lumbar spine. Severe foraminal narrowing is present L5-S1, moderate at L2-3, L3-4 and L4-5. No suspicious bony lesions. There is slight increased sclerosis at the inferior endplate of L2 and superior endplate of L3 Soft tissues: Overlying bowel gas pattern is normal. No suspicious soft tissue calcifications. IMPRESSION: 1. Multiple degenerative changes. 2. Increased sclerosis at the endplates of L2 and L3 as above. This could be related to degenerative change. There is no appreciable compression deformity. However, given history of trauma, if there is pain within this region, endplate fracture cannot be excluded. Dictated by: Georgina Bhat M.D. on 04/11/2018 at 16:26 Approved by: Georgina Bhat M.D. on 04/11/2018 at 16:[address] [address] XRay Report Signed Patient: Ange Hannah EMR#: [id number] : 6Acct:[id number] Age/Sex: 82 / FDate of Service: 04/11/18 Loc: ED Accession Number: [id number] Procedure: XR hip w pel if done LT 2V Ordering Provider: Kyle Her D.O. PROCEDURE: XR HIP W PEL IF DONE LT 2V INDICATIONS: fall with severe pain TECHNIQUE: AP pelvis with lateral view(s) of the left hip(s). COMPARISON: [facility], CR, [id number] W PEL IF PERFORMED, 10/12/2016, 9:33. FINDINGS: Bones: No fractures or dislocations. Pelvic ring appears intact. No suspicious bony lesions. Soft tissues: The visualized bowel gas pattern is normal. No suspicious soft tissue calcifications. IMPRESSION: No visualized acute fracture or dislocation. However, if clinical concern and/or pain persist, short interval imaging followup in 7-10 days is recommended, as occult injury cannot be definitively excluded. Dictated by: Georgina Bhat M.D. on 04/11/2018 at 16:25 Approved by: Georgina Bhat M.D. on 04/11/2018 at 16:26 MDM Narrative Medical decision making narrative: lumbar x-ray mentions some sclerosis of the endplate at a few spinal levels and suggests that if clinically appropriate fracture could be considered. It should be noted that the patient does not have any midline lumbar pain Discharge Plan Departure Patient Disposition: Home Clinical Impression: Contusion of hip, Coccyx contusion Discharge Date/Time: 04/11/18 16:55 Interventions: ED Discharge Assessment Last Done: 04/11/18 16:54 Instructions: DI for Contusion Activity Restrictions/Additional Instructions: *You have been diagnosed with [ hip and coccyx contusion ] *What to do: *Take medications as directed: Tylenol or Motrin *Follow up with your primary care provider in 2-3 days, call for an appointment. Let them know you were seen in the Emergency Department and that we ask that you be seen in follow up *Return to ER if you should have any new, worsening or concerning symptoms Prescriptions: No Action hydroxyzine HCl 25 mg tablet 25 mg PO TID PRN (Reason: pruritus) Qty: 30 RF: 0 citalopram 10 MG tablet 10 mg PO QDAY Qty: 90 RF: 1 losartan [Cozaar] 50 mg tablet 50 mg PO QDAY Qty: 90 RF: 3 warfarin [Coumadin] 5 mg tablet 5 mg PO SEE INSTRUCTIONS Qty: 90 RF: 3 donepezil [Aricept] 5 mg tablet 5 mg PO BEDTIME Qty: 30 RF: 3 metoprolol tartrate 50 mg Tablet 75 mg PO BID RF: 0 Disabled Parking Permit 1 dev miscellaneous DIRECTED RF: 0 phenazopyridine 100 mg Tablet 100 mg PO TID PRN (Reason: pain) RF: 0 ondansetron HCl [Zofran] 4 mg tablet 4 mg PO Q8-12H PRN (Reason: nausea and vomiting) Qty: 4 RF: 0 Referrals: Zane Shine MD [Primary Care Provider] -
[2018-04-11] MEDS: IBUPROFEN 400 MG TABLET PO (15:57)
[2018-04-11 16:54] VITALS: BP 127/77; PULSE 60; RESP 16; O2SAT 96
--- NOTE | 2018-04-11 19:17 | ED_ITS ---
HPI - Fall General Chief Complaint: Fall Stated Complaint: fall 2 weeks ago, butt hurts Time Seen by Provider: 04/11/18 15:53 Source: patient and family Mode of arrival: ambulatory Limitations: no limitations History of Present Illness HPI Narrative: 82-year-old nonsmoker presents with her daughter for evaluation of ongoing but pain since a fall about 2 weeks ago. The patient has been dealing with increasing episodes of ataxia which have been addressed by her primary care provider. She has falls on the occasion but is now suffered 2 in the past 2 weeks. In the initial fall it is unclear of the etiology but she states she thinks she just stumbled and fell back onto her bottom. She has been ambulating ever since but it causes her some discomfort when she sits. She had a secondary fall which was witnessed by family and she was just a bit unsteady and fell, lightly striking her head and causing a mild abrasion. There is no evidence of injury at this point time. The patient did not suffer a loss of consciousness vomiting or any change in mentation. Her pain tends to be worse when she sits and on occasion flares up after walking for a bit. She denies any numbness, tingling or weakness in her extremities MD complaint: fall Onset (ago): week(s) Fall from: standing Fall witnessed: no Place fall occurred: home Loss of consciousness: none Prolonged down time: no Context: history of frequent falls Location of injury: buttocks Related Data Home Medications Medication Instructions Recorded Confirmed Disabled Parking Permit 1 dev MISCELLANEOUS DIRECTED 01/08/18 01/28/18 metoprolol tartrate 75 mg PO BID 01/08/18 01/28/18 phenazopyridine 100 mg PO TID PRN 01/08/18 01/28/18 Previous Rx's Medication Instructions Recorded citalopram 10 mg PO QDAY #90 tab 07/16/17 hydroxyzine HCl 25 mg tablet 25 mg PO TID PRN #30 tab 10/02/17 losartan [Cozaar] 50 mg PO QDAY #90 tab 10/29/17 warfarin 5 mg tablet 5 mg PO SEE INSTRUCTIONS #90 tab 11/27/17 ondansetron HCl [Zofran] 4 mg PO Q8-12H PRN #4 tab 01/08/18 donepezil 5 mg tablet 5 mg PO BEDTIME #30 tab 01/28/18 Allergies Allergy/AdvReac Type Severity Reaction Status Date / Time lisinopril [LISINOPRIL] Allergy Mild cough Verified 04/11/18 14:26 Barbiturates AdvReac Mild HALLUCINATI Verified 04/11/18 14:26 ONS gabapentin [GABAPENTIN] AdvReac Mild dizziness Verified 04/11/18 14:26 hydrochlorothiazide AdvReac Mild dizziness Verified 04/11/18 14:26 [HYDROCHLOROTHIAZIDE] tramadol [TRAMADOL] AdvReac Mild dizziness Verified 04/11/18 14:26 triamterene [TRIAMTERENE] AdvReac Mild dizziness Verified 04/11/18 14:26 Review of Systems Review of Systems All systems reviewed & are unremarkable except as noted in HPI and below Constitutional Denies chills, Denies fever(s), Reports frequent falls, Denies lethargy and Denies weakness Eyes Denies change in vision, Denies eye discharge, Denies irritation and Denies loss of vision ENT Ears, Nose, Mouth, and Throat: Denies change in voice, Denies neck pain and Denies sore throat Cardiovascular Denies chest pain, Denies irregular heart rhythm, Denies lightheadedness, Denies palpitations, Denies dyspnea, Denies dyspnea on exertion and Denies orthopnea Respiratory Denies cough, Denies dyspnea, Denies dyspnea on exertion and Denies wheezing Gastrointestinal Gastrointestinal: Denies abdominal pain, Denies change in bowel habits, Denies diarrhea, Denies nausea and Denies vomiting Genitourinary Denies hematuria, Denies flank pain, Denies urinary incontinence and Denies urinary urgency Musculoskeletal Reports back pain and Denies neck pain Integumentary/Breasts Denies pruritus, Denies erythema, Denies rash and Denies wounds Neurologic Denies confusion, Reports frequent falls, Denies loss of vision and Denies weakness Psychiatric Denies anxiety, Denies confusion, Denies depression, Denies homicidal ideation and Denies suicidal ideation Endocrine Denies palpitations Hematologic/Lymphatic Denies easy bruising Allergic/Immunologic Denies wheezing Exam Narrative Exam Narrative: GEN: pleasant 82-year-old female is A&O x3, GCS 15, no obvious distress HEAD: no obvious injury. No abrasion, contusion, hematoma, or laceration EYES: Pupils are equal, round, and reactive to light and accommodation. Extraoccular muscles are intact bilaterally. There is no subconjunctival hemorrhage or exudate. CHEST: Lungs are clear to auscultation bilaterally and free of wheezes, rales, or rhonchi. Heart rate is regular rhythm, there are no murmurs, clicks, rubs, or gallops. There is no chest wall tenderness. ABD: Abdomen is soft and nontender. There is no guarding or rebound. Bowel sounds are normal in all 4 quadrants. There is no mass or organomegaly. EXT: Full painless ROM of all extremities with no loss of sensation or strength. BACK: she points to her coccyx, but I am unable to significantly reproduce her pain SKIN: Warm, pink, and dry. 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) Memory impairment (Chronic 04/23/16) Cardiac arrhythmia (Chronic) IBS (irritable bowel syndrome) (Chronic) Surgical History Presence of cardiac pacemaker (Resolved) S/P total abdominal hysterectomy and bilateral salpingo-oophorectomy (Resolved) Status post cholecystectomy (Resolved) Status post dilation and curettage (Resolved) Status post tubal ligation (Resolved) Family History Father Rheumatoid arthritis Mother Breast cancer Social History marital status: Smoking Status: Never smoker alcohol intake: current (ON OCCASION ) Course Orders Ordered: ED Orders 04/11/18 15:54 XR hip w pel if done LT 2V Stat XR lumbar spine 2-3V Stat Discontinued Medications Ibuprofen (Advil) 400 mg PO NOW ONE Stop: 04/11/18 15:55 Last Admin: 04/11/18 15:57 Dose: 400 mg Vital Signs - 8 hr 04/11/18 14:21 04/11/18 16:54 Temperature 97.6 F Pulse Rate 60 60 Respiratory Rate 16 16 Blood Pressure 126/76 127/77 Pulse Oximetry 94 96 MDM - Fall Medical Records Attestation: I reviewed the patient's medical records. Lab Data Attestation: I reviewed the patient's lab results. Imaging Data Pelvis/Hip/LSpine Xray: Radiologist's impression: [address] [address] XRay Report Signed Patient: Ange Hannah EMR#: [id number] : 6Acct:[id number] Age/Sex: 82 / FDate of Service: 04/11/18 Loc: ED Accession Number: [id number] Procedure: XR lumbar spine 2-3V Ordering Provider: Kyle Her D.O. PROCEDURE: XR LUMBAR SPINE 2-3V INDICATIONS: fall with lumbar pain TECHNIQUE: 3 views of the lumbar spine were acquired. COMPARISON: , , L-SPINE 2-3 VIEWS, 04/13/2012, 14:16. FINDINGS: Bones: 5 [id number]-uph-oayagkf vertebrae are present. There is trace retrolisthesis of L3 on L4. Severe disc space narrowing is present at L2-3, L5-S1, moderate remainder of the lumbar spine. Severe foraminal narrowing is present L5-S1, moderate at L2-3, L3- 4 and L4-5. No suspicious bony lesions. There is slight increased sclerosis at the inferior endplate of L2 and superior endplate of L3 Soft tissues: Overlying bowel gas pattern is normal. No suspicious soft tissue calcifications. IMPRESSION: 1. Multiple degenerative changes. 2. Increased sclerosis at the endplates of L2 and L3 as above. This could be related to degenerative change. There is no appreciable compression deformity. However, given history of trauma, if there is pain within this region, endplate fracture cannot be excluded. Dictated by: Georgina Bhat M.D. on 04/11/2018 at 16:26 Approved by: Georgina Bhat M.D. on 04/11/2018 at 16:[address] [address] XRay Report Signed Patient: Ange Hannah EMR#: [id number] : 6Acct:[id number] Age/Sex: 82 / FDate of Service: 04/11/18 Loc: ED Accession Number: [id number] Procedure: XR hip w pel if done LT 2V Ordering Provider: Kyle Her D.O. PROCEDURE: XR HIP W PEL IF DONE LT 2V INDICATIONS: fall with severe pain TECHNIQUE: AP pelvis with lateral view(s) of the left hip(s). COMPARISON: , CR, [id number] W PEL IF PERFORMED, 10/12/2016, 9: 33. FINDINGS: Bones: No fractures or dislocations. Pelvic ring appears intact. No suspicious bony lesions. Soft tissues: The visualized bowel gas pattern is normal. No suspicious soft tissue calcifications. IMPRESSION: No visualized acute fracture or dislocation. However, if clinical concern and/or pain persist, short interval imaging followup in 7-10 days is recommended , as occult injury cannot be definitively excluded. Dictated by: Georgina Bhat M.D. on 04/11/2018 at 16:25 Approved by: Georgina Bhat M.D. on 04/11/2018 at 16:26 MDM Narrative Medical decision making narrative: lumbar x-ray mentions some sclerosis of the endplate at a few spinal levels and suggests that if clinically appropriate fracture could be considered. It should be noted that the patient does not have any midline lumbar pain Discharge Plan Departure Patient Disposition: Home Clinical Impression: Contusion of hip, Coccyx contusion Discharge Date/Time: 04/11/18 16:55 Interventions: ED Discharge Assessment Last Done: 04/11/18 16:54 Instructions: DI for Contusion Activity Restrictions/Additional Instructions: *You have been diagnosed with [ hip and coccyx contusion ] *What to do: *Take medications as directed: Tylenol or Motrin *Follow up with your primary care provider in 2-3 days, call for an appointment. Let them know you were seen in the Emergency Department and that we ask that you be seen in follow up *Return to ER if you should have any new, worsening or concerning symptoms Prescriptions: No Action hydroxyzine HCl 25 mg tablet 25 mg PO TID PRN (Reason: pruritus) Qty: 30 RF: 0 citalopram 10 MG tablet 10 mg PO QDAY Qty: 90 RF: 1 losartan [Cozaar] 50 mg tablet 50 mg PO QDAY Qty: 90 RF: 3 warfarin [Coumadin] 5 mg tablet 5 mg PO SEE INSTRUCTIONS Qty: 90 RF: 3 donepezil [Aricept] 5 mg tablet 5 mg PO BEDTIME Qty: 30 RF: 3 metoprolol tartrate 50 mg Tablet 75 mg PO BID RF: 0 Disabled Parking Permit 1 dev miscellaneous DIRECTED RF: 0 phenazopyridine 100 mg Tablet 100 mg PO TID PRN (Reason: pain) RF: 0 ondansetron HCl [Zofran] 4 mg tablet 4 mg PO Q8-12H PRN (Reason: nausea and vomiting) Qty: 4 RF: 0 Referrals: Zane Shine MD [Primary Care Provider] -
== END 2018-04-11 16:55 | disposition home or self-care (01) ==
PROVIDERS: Emergency Provider Emergency Medicine; Family Provider Family Medicine; PCP Family Medicine
DX: S70.02XA Contusion of left hip, initial encounter (principal); S30.0XXA Contusion of lower back and pelvis, initial encounter; W18.30XA Fall on same level, unspecified, initial encounter
CPT/HCPCS: 72100; 73502; 99282; 99284

== ENCOUNTER → 2018-05-09 11:49 | Outpatient (CLI) | payer OTHER, SELFPAY ==
[2018-05-09 12:44] LABS: INR 2.4 (0.9-1.3); Prothrombin Time 28.4 SECONDS (10.1-12.7)
== END ==
PROVIDERS: PCP Family Medicine; Visit Provider Family Medicine
DX: I48.2 Chronic atrial fibrillation (principal); Z79.01 Long term (current) use of anticoagulants
CPT/HCPCS: 36415; 85610

== ENCOUNTER → 2018-05-30 11:15 | Outpatient (CLI) | payer OTHER, SELFPAY ==
[2018-05-30 12:33] LABS: INR 2.4 (0.9-1.3); Prothrombin Time 28.5 SECONDS (10.1-12.7)
== END ==
PROVIDERS: Family Provider Family Medicine; PCP Family Medicine; Visit Provider Family Medicine
DX: I48.2 Chronic atrial fibrillation (principal); Z79.01 Long term (current) use of anticoagulants
CPT/HCPCS: 36415; 85610

== ENCOUNTER → 2018-06-20 15:54 | Outpatient (CLI) | payer OTHER, SELFPAY | PROVIDERS: Family Provider Family Medicine; PCP Family Medicine; Visit Provider Physician Assistant | DX: R30.0 Dysuria (principal) | CPT/HCPCS: 87086 ==

== ENCOUNTER → 2018-06-27 12:28 | Outpatient (CLI) | payer OTHER, SELFPAY ==
[2018-06-27 12:49] LABS: Prothrombin Time 23.1 SECONDS (10.1-12.7)
== END ==
PROVIDERS: PCP Family Medicine; Visit Provider Family Medicine
DX: I48.2 Chronic atrial fibrillation (principal); Z79.01 Long term (current) use of anticoagulants
CPT/HCPCS: 36415; 85610

== ENCOUNTER → 2018-06-29 10:40 | Outpatient (CLI) | payer OTHER, SELFPAY ==
--- NOTE | 2018-06-29 10:46 | DI.RAD.S_ITS ---
PROCEDURE: XR LUMBAR SPINE 2-3V INDICATIONS: lbp s/p fall TECHNIQUE: 3 views of the lumbar spine were acquired. COMPARISON: [facility], CR, XR LUMBAR SPINE 2-3V, 04/11/2018, 16:14. FINDINGS: Bones: 5 lvb-xhl-psjksrv vertebrae are present. Mild dextro scoliosis. Trace multilevel retrolisthesis. Moderate to severe multilevel disc degeneration and lower lumbar spine facet joint arthropathy. No vertebral body compression fractures. No suspicious bony lesions. Soft tissues: Overlying bowel gas pattern is normal. No suspicious soft tissue calcifications. Cholecystectomy clips. IMPRESSION: Degenerative disc and facet disease similar to prior examination. Dictated by: Bernardino Ortiz [facility] Interpreted: Justin Rivera MD on 06/29/2018 at 11:24 Approved by: Justin Rivera M.D. on 06/29/2018 at 17:00
--- NOTE | 2018-06-29 10:46 | DI.RAD.S_ITS ---
PROCEDURE: XR CHEST 2V INDICATIONS: short of breath TECHNIQUE: 2 views of the chest were acquired. COMPARISON: [facility], , CHEST 1 VIEW, 04/15/2016, 15:17. FINDINGS: Surgical changes and devices: Stable positioning of dual chamber left cardiac pacemaker. Lungs and pleura: Lungs are clear. No pleural effusions or pneumothorax. Mediastinum: Mediastinal contours are normal. Heart size is enlarged as before. Bones and chest wall: No suspicious bony abnormalities. Soft tissues appear unremarkable. IMPRESSION: No acute cardiopulmonary disease. Dictated by: Bernardino Ortiz [facility] Interpreted: Justin Rivera MD on 06/29/2018 at 11:26 Approved by: Justin Rivera M.D. on 06/29/2018 at 17:00
[2018-06-29 11:41] LABS: Add Manual Diff / Slide Review NO; Basophils Absolute Auto 100 /uL (0-100); Basophils Percent Auto 1.6 % (0-2); Eosinophils Absolute Auto 300 /uL (0-450); Eosinophils Percent Auto 5.8 % (2-4); Hematocrit 40.8 % (36-46); Hemoglobin 13.3 g/dL (12.0-16.0); Lymphocytes Absolute Auto 1300 /uL (1100-4500); Lymphocytes Percent Auto 24.6 % (25-40); Mean Corpuscular HGB Conc 32.7 % (30-36); Mean Corpuscular Volume 91.7 fL (80-100); Monocytes Absolute Auto 600 /uL (0-900); Monocytes Percent Auto 10.5 % (3-14); Neutrophils Absolute Auto 3100 /uL (1500-7000); Neutrophils Percent Auto 57.5 % (50-75); Platelet Count 278 X10^3/uL (150-400); Red Blood Cell Count 4.45 X10^6/uL (4.0-5.2); Red Cell Distribution Width 12.9 % (11.6-14.8); White Blood Cell Count 5.3 X10^3/uL (4.5-11.0)
[2018-06-29 12:00] LABS: B Type Natriuretic Peptide 290 (<100)
[2018-06-29 12:14] LABS: Alanine Aminotransferase 44 IU/L (9-52); Albumin 4.4 g/dL (3.5-5.0); Albumin Globulin Ratio 1.3 (1.0-2.8); Alkaline Phosphatase 77 U/L (38-126); Aspartate Aminotransferase 39 IU/L (14-36); BUN Creatinine Ratio 27.8 (6-22); Bilirubin Total 0.2 mg/dL (0.2-1.3); Blood Urea Nitrogen 25 mg/dL (7-17); Calcium 9.2 mg/dL (8.4-10.2); Carbon Dioxide 24 mmol/L (22-32); Chloride 105 mmol/L (98-107); Estimated Glomerular Filt Rate 59.9 mL/min (>60); Globulin 3.4 g/dL (1.7-4.1); Glucose 99 mg/dL (80-110); HEMOLYSIS < 15 (0-50); Potassium 4.7 mmol/L (3.4-5.1); Sodium 141 mmol/L (137-145); Total Protein 7.8 g/dL (6.3-8.2)
[2018-06-29 12:34] LABS: TSH w/ Reflex to FT4 1.74 uIU/mL (0.47-4.68)
[2018-06-29 13:00] LABS: Vitamin B12 480 pg/mL (239-931)
== END ==
PROVIDERS: PCP Family Medicine; Visit Provider Family Medicine
DX: R06.02 Shortness of breath (principal); M47.816 Spondylosis without myelopathy or radiculopathy, lumbar region; M51.36 Other intervertebral disc degeneration, lumbar region; M54.5 Low back pain; I48.2 Chronic atrial fibrillation; F01.50 Vascular dementia, unspecified severity, without behavioral disturbance, psychotic disturbance, mood disturbance, and anxiety; E78.5 Hyperlipidemia, unspecified; I10 Essential (primary) hypertension
CPT/HCPCS: 36415; 71046; 72100; 80053; 82306; 82607; 83880; 84443; 85025

== ENCOUNTER → 2018-07-03 14:52 | Outpatient (CLI) | payer OTHER, SELFPAY ==
--- NOTE | 2018-07-03 14:52 | DI.ECHO.S_ITS ---
[facility] +---------+ : : [address] : [place] : : : : [id number] : : : : Phone: [phone]---------+ Echocardiogram Report + + :Name: MARY JO LEVI Study Date: 07/03/2018 Height: 65 in : :[facility] Weight: 160 lb : : Gender: Female BSA: 1.8 m2 : :: 1935 Age: 82 yrs BP: 130/78 mmHg: :Reason For Study: Atrial fibrillation : :Ordering Physician: Dr. Degroot : :Rl Performed By: Adriana Dill : :Referring: Rl Thomas : + + Interpretation Summary The left ventricle is normal in size, wall thickness, and systolic function without any focal wall motion abnormalities with the ejection fraction visually estimated to be 60-65%. Diastolic parameters suggest probable normal left ventricular diastolic function and normal filling pressures. There has been no significant change since the previous study. The right ventricle grossly appears normal in size with probable normal systolic function and is unchanged compared to the previous study. The right ventricular systolic pressure is estimated to be at least 29 mmHg based on an estimated right atrial pressure of 3 mm Hg, and is similar to the previous study. The left atrium is borderline dilated while right atrial size is normal. Both atria have mildly increased in size since the prior echo exam. There is mild mitral regurgitation that is unchanged compared to the previous study but there is no other significant valvular heart disease. The aortic arch is at the upper limits of normal in size but is unchanged compared to the previous study. The patient was likely in normal sinus rhythm during the examon the mitral valve inflow Doppler that suggest atrial contractility. Procedure: A two-dimensional transthoracic echocardiogram with color flow and Doppler was performed. The study quality was technically adequate. The apical views were difficult to obtain and are suboptimal in quality. The patient was in normal sinus rhythm during the exam. Based on the mitral valve inflow Doppler that suggest atrial contractility. Left Ventricle: The left ventricle is normal in size, wall thickness, and systolic function without any focal wall motion abnormalities. The ejection fraction is estimated to be 60-65%. Diastolic parameters suggest probable normal left ventricular diastolic function and normal filling pressures. There has been no significant change since the previous study. Right Ventricle: There is a pacemaker lead in the right ventricle. The right ventricle grossly appears normal in size with probable normal systolic function. This is unchanged compared to the previous study. Atria: The left atrium is borderline dilated. Both atria have mildly increased in size since the prior echo exam. Right atrial size is normal. The interatrial septum is intact with no evidence for an atrial septal defect. Mitral Valve: The mitral valve is normal in structure and function. There is mild mitral annular calcification. There is mild mitral regurgitation. This is unchanged compared to the previous study. Aortic Valve: The aortic valve is trileaflet. The aortic valve opens well. No aortic regurgitation is present. Tricuspid Valve: The tricuspid valve is normal in structure and function. There is a trace or physiologic amount of tricuspid regurgitation. The right ventricular systolic pressure is estimated to be at least 29 mmHg based on an estimated right atrial pressure of 3 mm Hg. This is similar compared to the previous study. Pulmonic Valve: The pulmonic valve is normal in structure and function. There is trace pulmonic regurgitation. There is no other significant valvular heart disease. Great Vessels: The aortic root is normal size. The dimensions of the ascending aorta are normal. The aortic arch is at the upper limits of normal in size. This is unchanged compared to the previous study. The IVC is of normal diameter and collapses greater than 50% with a sniff. This suggests a low right atrial pressure of 3 mm Hg. Pericardium/ Pleura There is no pericardial effusion. There is no pleural effusion. MMode/2D Measurements & Calculations LVIDd: 4.2 cm Ao root diam: 2.9 cm LVIDs: 3.0 cm Aortic Jxn: 2.3 cm FS: 28.1 % asc Aorta Diam: 3.0 cm IVSd: 0.84 cm Ao Arch Diam (Prox Trans): 3.1 cm LVPWd: 0.84 cm LV dominguez. diameter/BSA (cm/m^2): 2.3 LV sys. diameter/BSA (cm/m^2): 1.7 LA dimension: 3.8 cm RA long axis: 5.3 cm LA A4 area: 23.3 cm2 RA area: 18.1 cm2 LA length (vol): 6.2 cm RA vol: 52.4 ml RA : 29.1 ml/m2 IVC diam: 1.5 cm RVDd major: 5.5 cm RVD1 (basal): 2.4 cm RVD2 (mid): 2.2 cm Doppler Measurements & Calculations Ao V2 max: 131.8 cm/sec MV E max adrián: 104.9 cm/sec Ao V2 mean: 82.6 cm/sec MV A max adrián: 77.7 cm/sec Ao max P.9 mmHg MV E/A: 1.4 Ao mean P.3 mmHg MV dec time: 0.21 sec Ao V2 VTI: 29.8 cm MV P1/2t: 64.5 msec TR max adrián: 254.2 cm/sec MV P1/2t max adrián: 104.4 cm/sec TR max P.9 mmHg MVA(P1/2t): 3.4 cm2 PA V2 max: 88.3 cm/sec PA V2 mean: 51.5 cm/sec PA mean P.3 mmHg PA Accel Time: 0.13 sec Reading Physician:NABEEL
== END ==
PROVIDERS: Family Provider Family Medicine; PCP Family Medicine; Visit Provider Family Medicine
DX: I34.0 Nonrheumatic mitral (valve) insufficiency (principal); I48.2 Chronic atrial fibrillation; Z95.0 Presence of cardiac pacemaker
CPT/HCPCS: 93306

== ENCOUNTER → 2018-07-25 12:05 | Outpatient (CLI) | payer OTHER, SELFPAY ==
[2018-07-25 12:47] LABS: INR 3.1 (0.9-1.3); Prothrombin Time 37.2 SECONDS (10.1-12.7)
== END ==
PROVIDERS: Family Provider Family Medicine; PCP Family Medicine; Visit Provider Family Medicine
DX: I48.2 Chronic atrial fibrillation (principal); Z79.01 Long term (current) use of anticoagulants
CPT/HCPCS: 36415; 85610

== ENCOUNTER → 2018-08-22 11:36 | Outpatient (CLI) | payer OTHER, SELFPAY ==
[2018-08-22 12:33] LABS: INR 1.5 (0.9-1.3); Prothrombin Time 17.7 SECONDS (10.1-12.7)
== END ==
PROVIDERS: Family Provider Family Medicine; PCP Family Medicine; Visit Provider Family Medicine
DX: Z79.01 Long term (current) use of anticoagulants (principal); I48.2 Chronic atrial fibrillation
CPT/HCPCS: 36415; 85610

== ENCOUNTER → 2018-09-19 10:36 | Outpatient (CLI) | payer OTHER, SELFPAY ==
[2018-09-19 12:18] LABS: INR 1.7 (0.9-1.3); Prothrombin Time 19.3 SECONDS (10.1-12.7)
== END ==
PROVIDERS: Family Provider Family Medicine; PCP Family Medicine; Visit Provider Family Medicine
DX: I48.2 Chronic atrial fibrillation (principal); Z79.01 Long term (current) use of anticoagulants
CPT/HCPCS: 36415; 85610

== ENCOUNTER → 2018-10-10 10:17 | Outpatient (CLI) | payer OTHER, SELFPAY ==
[2018-10-10 11:59] LABS: INR 1.4 (0.9-1.3); Prothrombin Time 15.9 SECONDS (10.1-12.7)
== END ==
PROVIDERS: Family Provider Family Medicine; PCP Family Medicine; Visit Provider Family Medicine
DX: I48.2 Chronic atrial fibrillation (principal); Z79.01 Long term (current) use of anticoagulants
CPT/HCPCS: 36415; 85610

== ENCOUNTER → 2018-10-23 09:22 | Outpatient (CLI) | payer OTHER, SELFPAY ==
[2018-10-23 11:00] LABS: INR 1.9 (0.9-1.3); Prothrombin Time 22.6 SECONDS (10.1-12.7)
== END ==
PROVIDERS: Family Provider Family Medicine; PCP Family Medicine; Visit Provider Family Medicine
DX: I48.2 Chronic atrial fibrillation (principal)
CPT/HCPCS: 36415; 85610

== ENCOUNTER → 2018-11-17 10:23 | Outpatient (CLI) | payer OTHER, SELFPAY ==
[2018-11-17 11:44] LABS: INR 1.7 (0.9-1.3); Prothrombin Time 19.3 SECONDS (10.1-12.7)
== END ==
PROVIDERS: Family Provider Family Medicine; PCP Family Medicine; Visit Provider Family Medicine
DX: I48.2 Chronic atrial fibrillation (principal)
CPT/HCPCS: 36415; 85610

== ENCOUNTER → 2019-02-20 11:22 | Outpatient (CLI) | payer OTHER, SELFPAY ==
[2019-02-20 11:50] LABS: INR 2.5 (0.9-1.3); Prothrombin Time 28.9 SECONDS (10.1-12.7)
== END ==
PROVIDERS: Family Provider Family Medicine; PCP Family Medicine; Visit Provider Family Medicine
DX: I48.2 Chronic atrial fibrillation (principal); Z79.01 Long term (current) use of anticoagulants
CPT/HCPCS: 85610

== ENCOUNTER → 2019-03-20 10:34 | Outpatient (CLI) | payer OTHER, SELFPAY ==
[2019-03-20 12:46] LABS: INR 1.5 (0.9-1.3); Prothrombin Time 17.8 SECONDS (10.1-12.7)
== END ==
PROVIDERS: PCP Family Medicine; Visit Provider Family Medicine
DX: I48.20 Chronic atrial fibrillation, unspecified (principal); Z79.01 Long term (current) use of anticoagulants
CPT/HCPCS: 36415; 85610

== ENCOUNTER → 2019-04-03 10:57 | Outpatient (CLI) | payer OTHER, SELFPAY ==
[2019-04-03 12:12] LABS: INR 2.4 (0.9-1.3); Prothrombin Time 27.8 SECONDS (10.1-12.7)
== END ==
PROVIDERS: PCP Family Medicine; Visit Provider Family Medicine
DX: F01.50 Vascular dementia, unspecified severity, without behavioral disturbance, psychotic disturbance, mood disturbance, and anxiety (principal); I48.20 Chronic atrial fibrillation, unspecified
CPT/HCPCS: 36415; 85610

== ENCOUNTER → 2019-04-17 10:56 | Outpatient (CLI) | payer OTHER, SELFPAY | PROVIDERS: PCP Family Medicine; Visit Provider Family Medicine | DX: I48.20 Chronic atrial fibrillation, unspecified (principal) | CPT/HCPCS: 36415; 85610 ==

== ENCOUNTER → 2019-05-08 09:53 | Outpatient (CLI) | payer OTHER, SELFPAY ==
[2019-05-08 11:15] LABS: INR 2.4 (0.9-1.3); Prothrombin Time 28.8 SECONDS (10.1-12.7)
== END ==
PROVIDERS: PCP Family Medicine; Visit Provider Family Medicine
DX: I48.20 Chronic atrial fibrillation, unspecified (principal); I48.0 Paroxysmal atrial fibrillation
CPT/HCPCS: 85610

== ENCOUNTER → 2019-05-29 10:33 | Outpatient (CLI) | payer OTHER, SELFPAY ==
[2019-05-29 11:56] LABS: Add Manual Diff / Slide Review NO; Basophils Absolute Auto 200 /uL (0-100); Basophils Percent Auto 3.1 % (0-2); Eosinophils Absolute Auto 200 /uL (0-450); Eosinophils Percent Auto 4.9 % (2-4); Hematocrit 41.2 % (36-46); Hemoglobin 13.9 g/dL (12.0-16.0); Lymphocytes Absolute Auto 1000 /uL (1100-4500); Lymphocytes Percent Auto 19.9 % (25-40); Mean Corpuscular HGB Conc 33.7 % (30-36); Mean Corpuscular Hemoglobin 30.6 PG (26-34); Mean Corpuscular Volume 90.8 fL (80-100); Monocytes Absolute Auto 400 /uL (0-900); Neutrophils Absolute Auto 3300 /uL (1500-7000); Neutrophils Percent Auto 65.1 % (50-75); Platelet Count 226 X10^3/uL (150-400); Red Blood Cell Count 4.54 X10^6/uL (4.0-5.2); Red Cell Distribution Width 12.9 % (11.6-14.8); White Blood Cell Count 5.1 X10^3/uL (4.5-11.0)
[2019-05-29 11:57] LABS: INR 2.3 (0.9-1.3); Prothrombin Time 26.8 SECONDS (10.1-12.7)
[2019-05-29 12:02] LABS: Alanine Aminotransferase 17 IU/L (<35); Albumin 4.2 g/dL (3.5-5.0); Albumin Globulin Ratio 1.4 (1.0-2.8); Alkaline Phosphatase 76 U/L (38-126); Aspartate Aminotransferase 25 IU/L (14-36); BUN Creatinine Ratio 33.8 (6-22); Bilirubin Total 0.3 mg/dL (0.2-1.3); Blood Urea Nitrogen 27 mg/dL (7-17); Calcium 9.4 mg/dL (8.4-10.2); Carbon Dioxide 26 mmol/L (22-32); Chloride 104 mmol/L (98-107); Estimated Glomerular Filt Rate > 60.0 mL/min (>60); Globulin 3.1 g/dL (1.7-4.1); Glucose 178 mg/dL (80-110); HEMOLYSIS < 15 (0-50); Potassium 4.2 mmol/L (3.4-5.1); Sodium 139 mmol/L (137-145); Total Protein 7.3 g/dL (6.3-8.2)
[2019-05-29 12:32] LABS: TSH w/ Reflex to FT4 2.69 uIU/mL (0.47-4.68)
== END ==
PROVIDERS: PCP Family Medicine; Visit Provider Family Medicine
DX: E78.5 Hyperlipidemia, unspecified (principal); F01.50 Vascular dementia, unspecified severity, without behavioral disturbance, psychotic disturbance, mood disturbance, and anxiety; I10 Essential (primary) hypertension; Z79.01 Long term (current) use of anticoagulants
CPT/HCPCS: 36415; 80053; 84443; 85025; 85610

== ENCOUNTER → 2019-06-26 11:10 | Outpatient (CLI) | payer OTHER, SELFPAY ==
[2019-06-26 11:57] LABS: Prothrombin Time 23.1 SECONDS (10.1-12.7)
== END ==
PROVIDERS: PCP Family Medicine; Visit Provider Family Medicine
DX: I48.0 Paroxysmal atrial fibrillation (principal)
CPT/HCPCS: 36415; 85610

== ENCOUNTER → 2019-07-24 11:01 | Outpatient (CLI) | payer OTHER, SELFPAY ==
[2019-07-24 13:22] LABS: INR 1.9 (0.9-1.3); Prothrombin Time 22.1 SECONDS (10.1-12.7)
== END ==
PROVIDERS: PCP Family Medicine; Referring Provider Family Medicine; Visit Provider Family Medicine
DX: Z79.01 Long term (current) use of anticoagulants (principal)
CPT/HCPCS: 36415; 85610

== ENCOUNTER → 2019-08-07 10:02 | Outpatient (CLI) | payer OTHER, SELFPAY ==
[2019-08-07 10:40] LABS: INR 2.9 (0.9-1.3); Prothrombin Time 33.5 SECONDS (10.1-12.7)
== END ==
PROVIDERS: PCP Family Medicine; Referring Provider Family Medicine; Visit Provider Family Medicine
DX: I48.20 Chronic atrial fibrillation, unspecified (principal); Z79.01 Long term (current) use of anticoagulants
CPT/HCPCS: 36415; 85610

== ENCOUNTER → 2019-12-23 13:47 | Outpatient (CLI) | payer OTHER, SELFPAY ==
[2019-12-23 14:26] LABS: Add Manual Diff / Slide Review NO; Basophils Absolute Auto 100 /uL (0-100); Basophils Percent Auto 1.2 % (0-2); Eosinophils Absolute Auto 400 /uL (0-450); Eosinophils Percent Auto 6.4 % (2-4); Hematocrit 41.6 % (36-46); Hemoglobin 13.7 g/dL (12.0-16.0); Lymphocytes Absolute Auto 1300 /uL (1100-4500); Lymphocytes Percent Auto 21.2 % (25-40); Mean Corpuscular Hemoglobin 30.4 PG (26-34); Mean Corpuscular Volume 91.9 fL (80-100); Monocytes Absolute Auto 700 /uL (0-900); Monocytes Percent Auto 10.9 % (3-14); Neutrophils Absolute Auto 3700 /uL (1500-7000); Neutrophils Percent Auto 60.3 % (50-75); Platelet Count 230 X10^3/uL (150-400); Red Blood Cell Count 4.53 X10^6/uL (4.0-5.2); Red Cell Distribution Width 13.2 % (11.6-14.8); White Blood Cell Count 6.2 X10^3/uL (4.5-11.0)
[2019-12-23 14:28] LABS: INR 2.1 (0.9-1.3); Prothrombin Time 23.6 SECONDS (10.1-12.7)
[2019-12-23 15:20] LABS: Alanine Aminotransferase 28 IU/L (<35); Albumin 4.2 g/dL (3.5-5.0); Albumin Globulin Ratio 1.5 (1.0-2.8); Alkaline Phosphatase 74 U/L (38-126); Aspartate Aminotransferase 33 IU/L (14-36); BUN Creatinine Ratio 34.1 (6-22); Bilirubin Total 0.4 mg/dL (0.2-1.3); Blood Urea Nitrogen 30 mg/dL (7-17); Calcium 9.6 mg/dL (8.4-10.2); Carbon Dioxide 27 mmol/L (22-32); Chloride 104 mmol/L (98-107); Estimated Glomerular Filt Rate > 60.0 mL/min (>60); Globulin 2.8 g/dL (1.7-4.1); Glucose 102 mg/dL (80-110); HEMOLYSIS < 15 (0-50); Sodium 138 mmol/L (137-145)
[2019-12-23 15:53] LABS: TSH w/ Reflex to FT4 1.79 uIU/mL (0.47-4.68)
[2019-12-23 16:10] LABS: Vitamin B12 536 pg/mL (239-931)
== END ==
PROVIDERS: PCP Family Medicine; Referring Provider Family Medicine; Visit Provider Family Medicine
DX: E78.5 Hyperlipidemia, unspecified (principal); F01.50 Vascular dementia, unspecified severity, without behavioral disturbance, psychotic disturbance, mood disturbance, and anxiety; I10 Essential (primary) hypertension; I48.20 Chronic atrial fibrillation, unspecified; Z79.01 Long term (current) use of anticoagulants
CPT/HCPCS: 36415; 80053; 82607; 84443; 85025; 85610

== ENCOUNTER → 2020-02-19 11:11 | Outpatient (CLI) | payer OTHER, SELFPAY ==
[2020-02-19 11:39] LABS: INR 2.5 (0.9-1.3)
== END ==
PROVIDERS: Family Medicine; PCP Family Medicine; Referring Provider Family Medicine; Visit Provider Family Medicine
DX: I48.20 Chronic atrial fibrillation, unspecified (principal); Z79.01 Long term (current) use of anticoagulants
CPT/HCPCS: 36415; 85610

== ENCOUNTER → 2020-03-25 10:43 | Outpatient (CLI) | payer OTHER, SELFPAY ==
[2020-03-25 13:54] LABS: INR 2.3 (0.9-1.3); Prothrombin Time 26.2 SECONDS (10.1-12.7)
== END ==
PROVIDERS: PCP Family Medicine; Referring Provider Family Medicine; Visit Provider Family Medicine
DX: I48.20 Chronic atrial fibrillation, unspecified (principal); Z79.01 Long term (current) use of anticoagulants
CPT/HCPCS: 36415; 85610

== ENCOUNTER → 2020-04-29 11:11 | Outpatient (CLI) | payer OTHER, SELFPAY ==
[2020-04-29 11:41] LABS: INR 2.1 (0.9-1.3); Prothrombin Time 23.9 SECONDS (10.1-12.7)
== END ==
PROVIDERS: PCP Family Medicine; Referring Provider Family Medicine; Visit Provider Family Medicine
DX: I48.20 Chronic atrial fibrillation, unspecified (principal); Z79.01 Long term (current) use of anticoagulants
CPT/HCPCS: 36415; 85610

== ENCOUNTER → 2020-06-10 11:41 | Outpatient (CLI) | payer OTHER, SELFPAY ==
[2020-06-10 13:48] LABS: INR 2.2 (0.9-1.3); Prothrombin Time 25.5 SECONDS (10.1-12.7)
== END ==
PROVIDERS: PCP Family Medicine; Referring Provider Family Medicine; Visit Provider Family Medicine
DX: I48.20 Chronic atrial fibrillation, unspecified (principal); Z79.01 Long term (current) use of anticoagulants
CPT/HCPCS: 36415; 85610

== ENCOUNTER → 2020-06-23 16:06 | Outpatient (CLI) | payer MEDICARE, SELFPAY ==
[2020-06-23] MEDS: COVID-19 VACC #1, MRNA(MOD) 100 MCG/0.5 ML VIAL IM (16:11)
== END ==
PROVIDERS: PCP Family Medicine; Visit Provider Internal Medicine
DX: Z23 Encounter for immunization (principal)
CPT/HCPCS: 0011A; 91301

== ENCOUNTER → 2020-07-21 16:20 | Outpatient (CLI) | payer MEDICARE, SELFPAY ==
[2020-07-21] MEDS: COVID-19 VACC #2, MRNA(MOD) 100 MCG/0.5 ML VIAL IM (16:27)
== END ==
PROVIDERS: PCP Family Medicine; Visit Provider Internal Medicine
DX: Z23 Encounter for immunization (principal)
CPT/HCPCS: 0012A; 91301

== ENCOUNTER → 2020-07-24 11:18 | Outpatient (CLI) | payer OTHER, SELFPAY ==
[2020-07-24 12:11] LABS: INR 2.6 (0.9-1.3); Prothrombin Time 29.2 SECONDS (10.1-12.7)
== END ==
PROVIDERS: PCP Family Medicine; Referring Provider Family Medicine; Visit Provider Family Medicine
DX: I48.20 Chronic atrial fibrillation, unspecified (principal); Z79.01 Long term (current) use of anticoagulants
CPT/HCPCS: 36415; 85610

== ENCOUNTER → 2020-08-19 09:56 | Outpatient (CLI) | payer OTHER, SELFPAY ==
[2020-08-19 10:31] LABS: INR 2.6 (0.9-1.3); Prothrombin Time 29.2 SECONDS (10.1-12.7)
== END ==
PROVIDERS: PCP Family Medicine; Referring Provider Family Medicine; Visit Provider Family Medicine
DX: I48.20 Chronic atrial fibrillation, unspecified (principal); Z79.01 Long term (current) use of anticoagulants
CPT/HCPCS: 36415; 85610

== ENCOUNTER → 2020-09-23 11:09 | Outpatient (CLI) | payer OTHER, SELFPAY ==
[2020-09-23 11:53] LABS: INR 2.3 (0.9-1.3); Prothrombin Time 26.1 SECONDS (10.1-12.7)
== END ==
PROVIDERS: PCP Family Medicine; Referring Provider Family Medicine; Visit Provider Family Medicine
DX: I48.20 Chronic atrial fibrillation, unspecified (principal); I48.91 Unspecified atrial fibrillation
CPT/HCPCS: 36415; 85610

== ENCOUNTER → 2020-10-21 12:20 | Outpatient (CLI) | payer OTHER, SELFPAY ==
[2020-10-21 13:22] LABS: INR 2.3 (0.9-1.3); Prothrombin Time 25.8 SECONDS (10.1-12.7)
== END ==
PROVIDERS: PCP Family Medicine; Referring Provider Family Medicine; Visit Provider Family Medicine
DX: I48.20 Chronic atrial fibrillation, unspecified (principal)
CPT/HCPCS: 36415; 85610

== ENCOUNTER → 2020-11-18 11:37 | Outpatient (CLI) | payer OTHER, SELFPAY ==
[2020-11-18 12:41] LABS: INR 2.8 (0.9-1.3); Prothrombin Time 32.3 SECONDS (10.1-12.7)
== END ==
PROVIDERS: PCP Family Medicine; Referring Provider Family Medicine; Visit Provider Family Medicine
DX: I48.20 Chronic atrial fibrillation, unspecified (principal); Z79.01 Long term (current) use of anticoagulants; I67.82 Cerebral ischemia; Z95.0 Presence of cardiac pacemaker
CPT/HCPCS: 36415; 85610

== ENCOUNTER → 2021-01-11 11:01 | Outpatient (CLI) | payer OTHER, SELFPAY ==
[2021-01-11 11:37] LABS: INR 2.3 (0.9-1.3); Prothrombin Time 25.6 SECONDS (10.1-12.7)
== END ==
PROVIDERS: PCP Family Medicine; Referring Provider Family Medicine; Visit Provider Family Medicine
DX: I48.20 Chronic atrial fibrillation, unspecified (principal); Z79.01 Long term (current) use of anticoagulants
CPT/HCPCS: 36415; 85610

== ENCOUNTER → 2021-02-10 10:22 | Outpatient (CLI) | payer OTHER, SELFPAY ==
[2021-02-10 11:50] LABS: INR 2.8 (0.9-1.3); Prothrombin Time 32.6 SECONDS (10.1-12.7)
== END ==
PROVIDERS: PCP Family Medicine; Referring Provider Family Medicine; Visit Provider Family Medicine
DX: Z79.01 Long term (current) use of anticoagulants (principal)
CPT/HCPCS: 36415; 85610

== ENCOUNTER → 2021-03-17 11:29 | Outpatient (CLI) | payer OTHER, SELFPAY ==
[2021-03-17 12:40] LABS: INR 2.5 (0.9-1.3)
== END ==
PROVIDERS: PCP Family Medicine; Referring Provider Family Medicine; Visit Provider Family Medicine
DX: I48.20 Chronic atrial fibrillation, unspecified (principal); Z79.01 Long term (current) use of anticoagulants
CPT/HCPCS: 36415; 85610

== ENCOUNTER → 2021-04-17 13:02 | Outpatient (CLI) | payer OTHER, SELFPAY ==
[2021-04-17 13:56] LABS: INR 2.3 (0.9-1.3); Prothrombin Time 26.3 SECONDS (10.1-12.7)
== END ==
PROVIDERS: PCP Family Medicine; Referring Provider Family Medicine; Visit Provider Family Medicine
DX: Z79.01 Long term (current) use of anticoagulants (principal)
CPT/HCPCS: 36415; 85610

== ENCOUNTER → 2021-05-19 10:37 | Outpatient (CLI) | payer OTHER, SELFPAY ==
[2021-05-19 12:54] LABS: INR 3.1 (0.9-1.3); Prothrombin Time 35.8 SECONDS (10.1-12.7)
== END ==
PROVIDERS: PCP Family Medicine; Referring Provider Family Medicine; Visit Provider Family Medicine
DX: I67.82 Cerebral ischemia (principal); Z79.01 Long term (current) use of anticoagulants; I48.20 Chronic atrial fibrillation, unspecified
CPT/HCPCS: 36415; 85610

== ENCOUNTER → 2021-06-23 10:09 | Outpatient (CLI) | payer OTHER, SELFPAY ==
[2021-06-23 10:43] LABS: INR 2.6 (0.9-1.3); Prothrombin Time 30.2 SECONDS (10.1-12.7)
== END ==
PROVIDERS: PCP Family Medicine; Referring Provider Family Medicine; Visit Provider Family Medicine
DX: Z79.01 Long term (current) use of anticoagulants (principal)
CPT/HCPCS: 36415; 85610

== ENCOUNTER → 2021-07-21 09:16 | Outpatient (CLI) | payer OTHER, SELFPAY ==
[2021-07-21 09:51] LABS: INR 3.4 (0.9-1.3); Prothrombin Time 39.6 SECONDS (10.1-12.7)
== END ==
PROVIDERS: PCP Family Medicine; Referring Provider Family Medicine; Visit Provider Family Medicine
DX: Z79.01 Long term (current) use of anticoagulants (principal)
CPT/HCPCS: 36415; 85610

== ENCOUNTER → 2021-08-04 09:11 | Outpatient (CLI) | payer OTHER, SELFPAY ==
[2021-08-04 10:09] LABS: INR 2.4 (0.9-1.3); Prothrombin Time 28.4 SECONDS (10.1-12.7)
== END ==
PROVIDERS: PCP Family Medicine; Referring Provider Family Medicine; Visit Provider Family Medicine
DX: Z79.01 Long term (current) use of anticoagulants (principal)
CPT/HCPCS: 36415; 85610

== ENCOUNTER → 2021-09-10 16:35 | Outpatient (CLI) | payer OTHER, SELFPAY ==
[2021-09-10 17:35] LABS: INR 2.3 (0.9-1.3); Prothrombin Time 25.7 SECONDS (10.1-12.7)
== END ==
PROVIDERS: PCP Family Medicine; Referring Provider Family Medicine; Visit Provider Family Medicine
DX: I48.20 Chronic atrial fibrillation, unspecified (principal); Z79.01 Long term (current) use of anticoagulants
CPT/HCPCS: 36415; 85610

== ENCOUNTER → 2021-10-06 11:12 | Outpatient (CLI) | payer OTHER, SELFPAY ==
[2021-10-06 12:39] LABS: INR 2.9 (0.9-1.3); Prothrombin Time 33.9 SECONDS (10.1-12.7)
== END ==
PROVIDERS: PCP Family Medicine; Referring Provider Family Medicine; Visit Provider Family Medicine
DX: I67.82 Cerebral ischemia (principal); I48.20 Chronic atrial fibrillation, unspecified
CPT/HCPCS: 36415; 85610

== ENCOUNTER → 2021-11-19 10:15 | Outpatient (CLI) | payer OTHER, SELFPAY ==
[2021-11-19 11:44] LABS: INR 2.8 (0.9-1.3); Prothrombin Time 32.6 SECONDS (10.1-12.7)
== END ==
PROVIDERS: PCP Family Medicine; Referring Provider Family Medicine; Visit Provider Family Medicine
DX: Z79.01 Long term (current) use of anticoagulants (principal); I48.20 Chronic atrial fibrillation, unspecified; I67.82 Cerebral ischemia
CPT/HCPCS: 36415; 85610

== ENCOUNTER → 2021-12-19 16:19 | Outpatient (CLI) | payer OTHER, SELFPAY ==
[2021-12-19 17:04] LABS: INR 2.6 (0.9-1.3); Prothrombin Time 29.5 SECONDS (10.1-12.7)
== END ==
PROVIDERS: PCP Family Medicine; Referring Provider Family Medicine; Visit Provider Family Medicine
DX: I67.82 Cerebral ischemia (principal); Z79.01 Long term (current) use of anticoagulants; I48.20 Chronic atrial fibrillation, unspecified
CPT/HCPCS: 36415; 85610

== ENCOUNTER → 2022-02-01 17:26 | Outpatient (CLI) | payer OTHER, SELFPAY | PROVIDERS: PCP Family Medicine; Referring Provider Family Medicine; Visit Provider Family Medicine | DX: Z79.01 Long term (current) use of anticoagulants (principal); I48.20 Chronic atrial fibrillation, unspecified; I67.82 Cerebral ischemia | CPT/HCPCS: 36415; 85610 ==

== ENCOUNTER → 2022-03-16 10:38 | Outpatient (CLI) | payer OTHER, SELFPAY ==
[2022-03-16 12:18] LABS: INR 2.7 (0.9-1.3); Prothrombin Time 31.8 SECONDS (10.1-12.7)
== END ==
PROVIDERS: PCP Family Medicine; Referring Provider Family Medicine; Visit Provider Family Medicine
DX: I67.82 Cerebral ischemia (principal); Z79.01 Long term (current) use of anticoagulants; I48.20 Chronic atrial fibrillation, unspecified
CPT/HCPCS: 36415; 85610

== ENCOUNTER → 2022-05-11 09:29 | Outpatient (CLI) | payer OTHER, SELFPAY ==
[2022-05-11 10:51] LABS: INR 4.3 (0.9-1.3); Prothrombin Time 50.1 SECONDS (10.1-12.7)
== END ==
PROVIDERS: PCP Family Medicine; Referring Provider Family Medicine; Visit Provider Family Medicine
DX: Z79.01 Long term (current) use of anticoagulants (principal); I48.20 Chronic atrial fibrillation, unspecified; I67.82 Cerebral ischemia
CPT/HCPCS: 36415; 85610

== ENCOUNTER → 2022-05-18 11:19 | Outpatient (CLI) | payer OTHER, SELFPAY ==
[2022-05-18 12:05] LABS: INR 2.2 (0.9-1.3); Prothrombin Time 25.5 SECONDS (10.1-12.7)
== END ==
PROVIDERS: PCP Family Medicine; Referring Provider Family Medicine; Visit Provider Family Medicine
DX: Z79.01 Long term (current) use of anticoagulants (principal); I48.20 Chronic atrial fibrillation, unspecified
CPT/HCPCS: 36415; 85610

== ENCOUNTER → 2022-05-25 11:55 | Outpatient (CLI) | payer OTHER, SELFPAY ==
[2022-05-25 13:13] LABS: INR 2.9 (0.9-1.3); Prothrombin Time 33.7 SECONDS (10.1-12.7)
== END ==
PROVIDERS: PCP Family Medicine; Referring Provider Family Medicine; Visit Provider Family Medicine
DX: Z79.01 Long term (current) use of anticoagulants (principal); I48.20 Chronic atrial fibrillation, unspecified; I67.82 Cerebral ischemia
CPT/HCPCS: 36415; 85610

== ENCOUNTER → 2022-05-29 11:32 | Outpatient (CLI) | payer OTHER, SELFPAY ==
[2022-05-29 13:48] LABS: Influenza A - CEPHEID Flu A NEGATIVE (NEGATIVE); Influenza B - CEPHEID Flu B NEGATIVE (NEGATIVE); Respiratory Syncytial Virus Negative (Negative)
[2022-05-29 14:19] LABS: COVID-19 CEPHEID 4-PLEX PCR Negative (Negative)
== END ==
PROVIDERS: PCP Family Medicine; Visit Provider Registered Nurse
DX: R30.0 Dysuria (principal); R05.9 Cough, unspecified; Z20.828 Contact with and (suspected) exposure to other viral communicable diseases
CPT/HCPCS: 0241U; 87077; 87086; 87186

== ENCOUNTER → 2022-06-12 13:14 | Outpatient (CLI) | payer OTHER, SELFPAY ==
[2022-06-12 14:23] LABS: INR 2.7 (0.9-1.3); Prothrombin Time 31.6 SECONDS (10.1-12.7)
== END ==
PROVIDERS: PCP Family Medicine; Referring Provider Physician Assistant Medical; Visit Provider Physician Assistant Medical
DX: I48.19 Other persistent atrial fibrillation (principal)
CPT/HCPCS: 36415; 85610

== ENCOUNTER → 2022-06-19 12:35 | Outpatient (CLI) | payer OTHER, SELFPAY ==
[2022-06-19 13:50] LABS: INR 2.9 (0.9-1.3); Prothrombin Time 33.5 SECONDS (10.1-12.7)
[2022-06-19 14:21] LABS: Influenza A - CEPHEID Flu A NEGATIVE (NEGATIVE); Influenza B - CEPHEID Flu B NEGATIVE (NEGATIVE); Respiratory Syncytial Virus POSITIVE (Negative)
[2022-06-19 14:22] LABS: COVID-19 CEPHEID 4-PLEX PCR Negative (Negative)
== END ==
PROVIDERS: Nurse Practitioner Family; PCP Family Medicine; Referring Provider Family Medicine; Visit Provider Family Medicine
DX: Z79.01 Long term (current) use of anticoagulants (principal); I48.20 Chronic atrial fibrillation, unspecified; I67.82 Cerebral ischemia; R09.81 Nasal congestion; R05.1 Acute cough
CPT/HCPCS: 0241U; 36415; 85610

== ENCOUNTER 2022-07-01 11:13 | Inpatient (IN) | payer OTHER, SELFPAY ==
[2022-07-01] VITALS (32 sets, daily range): BP systolic 103–165; BP diastolic 57–97; PULSE 69–98; RESP 12–25; TEMP 36.1–36.6; O2SAT 92–99; BMI 23.5
[2022-07-01 13:12] LABS: Add Manual Diff / Slide Review NO; Basophils Absolute Auto 100 /uL (0-100); Basophils Percent Auto 1.2 % (0-2); Eosinophils Absolute Auto 100 /uL (0-450); Eosinophils Percent Auto 1.6 % (2-4); Hematocrit 46.8 % (36-46); Hemoglobin 15.5 g/dL (12.0-16.0); Lymphocytes Absolute Auto 1200 /uL (1100-4500); Mean Corpuscular Hemoglobin 29.5 PG (26-34); Mean Corpuscular Volume 89.3 fL (80-100); Monocytes Absolute Auto 500 /uL (0-900); Monocytes Percent Auto 7.9 % (3-14); Neutrophils Absolute Auto 4400 /uL (1500-7000); Neutrophils Percent Auto 70.3 % (50-75); Platelet Count 206 X10^3/uL (150-400); Red Blood Cell Count 5.25 X10^6/uL (4.0-5.2); Red Cell Distribution Width 13.1 % (11.6-14.8); White Blood Cell Count 6.3 X10^3/uL (4.5-11.0)
[2022-07-01 13:16] LABS: PTT Partial Thromboplastin Tim 62 SECONDS (26-36)
[2022-07-01 13:17] LABS: Lactate (Lactic Acid) 1.7 mmol/L (0.7-2.1)
--- NOTE | 2022-07-01 13:18 | DI.RAD.S_ITS ---
PROCEDURE: XR CHEST 2V INDICATIONS: cough TECHNIQUE: 2 views of the chest were acquired. COMPARISON: [facility], CR, XR CHEST 2V, 06/29/2018, 11:03. FINDINGS: Surgical changes and devices: Dual lead cardiac defibrillator is unchanged. Lungs and pleura: Lungs are clear. No pleural effusions or pneumothorax. Mediastinum: Mediastinal contours are normal. Heart size is enlarged, as before. Bones and chest wall: No suspicious bony abnormalities. Soft tissues appear unremarkable. IMPRESSION: Stable cardiomegaly. No acute pulmonary findings. Dictated by: Kamala Quinonez M.D. on 07/01/2022 at 14:05 Approved by: Kamala Quinonez M.D. on 07/01/2022 at 14:05
[2022-07-01 13:19] LABS: Alanine Aminotransferase 35 IU/L (<35); Albumin 4.2 g/dL (3.5-5.0); Albumin Globulin Ratio 1.2 (1.0-2.8); Alkaline Phosphatase 69 U/L (38-126); Aspartate Aminotransferase 44 IU/L (14-36); BUN Creatinine Ratio 20.2 (6-22); Bilirubin Total 0.9 mg/dL (0.2-1.3); Blood Urea Nitrogen 22 mg/dL (7-17); Calcium 9.1 mg/dL (8.4-10.2); Carbon Dioxide 22 mmol/L (22-32); Chloride 102 mmol/L (98-107); Estimated Glomerular Filt Rate 49 mL/min (>60); Globulin 3.6 g/dL (1.7-4.1); Glucose 169 mg/dL (80-110); HEMOLYSIS 16 (0-50); Lipase 176 U/L (23-300); Potassium 4.1 mmol/L (3.4-5.1); Sodium 137 mmol/L (137-145); Total Protein 7.8 g/dL (6.3-8.2)
[2022-07-01 13:30] LABS: Prothrombin Time 72.9 SECONDS (10.1-12.7)
[2022-07-01 13:34] LABS: INR 6.2 (0.9-1.3)
[2022-07-01] MEDS: SODIUM CHLORIDE 0.9% 1,000 ML 1000 ML IV (13:41)
[2022-07-01] MEDS: ONDANSETRON 4 MG/2 ML INJ IV (13:41)
--- NOTE | 2022-07-01 13:41 | ED_ITS ---
HPI - Nausea/Vomiting/Diarrhea <Flory Vega PA-C - Last Filed: 07/01/22 17:48> General Chief complaint: Nausea/Vomiting/Diarrhea Stated complaint: RSV not eating/diarrhea/nausea Time Seen by Provider: 07/01/22 12:49 Source: patient and family Mode of arrival: Ambulatory History of Present Illness HPI Narrative: 86-year-old female with past medical history vascular dementia, hyperlipidemia, essential hypertension, chronic atrial fibrillation, status post pacemaker, on warfarin brought in by daughter and caregiver for nausea diarrhea, for oral intake. Patient was diagnosed with RSV on 06/19/2022, following which she did not fully recover. Patient was initially coughing a lot, however that has reduced now, but patient appears increasingly tired, somnolent, week, complains of nausea and dizziness. Per patient daughter and caregiver, they state that patient was able to walk unassisted prior to the RSV, however now she needs assistance for ADLs and walking to the bathroom. They state that the nausea and dizziness are brought on mainly by changes in position such as when patient goes up to standing from sitting or laying down. Patient had 3 episodes of diarrhea today, the last of which they note was dark. They deny that patient has had fever, chills, chest pain, shortness of breath, rhinorrhea, sore throat, vomiting, abdominal pain, dysuria, syncope. They state that patient has had a very poor appetite, is not consuming fluids or solids consistently. Patient's caregiver also states that patient seems to be forgetting to swallow, they fear that she might be swallowing her secretions. Patient is on Coumadin, has not had her last 3 weekly INR checks. Patient has chronic AFib with a pacemaker. The pacemaker is due for replacement. 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 Related Data Home Medications Medication Instructions Recorded Confirmed dorzolamide 2 % eye drops 1 drp ophthalmic (eye) DAILY 07/01/22 07/01/22 flecainide 50 mg tablet 50 mg PO BID 07/01/22 07/01/22 Previous Rx's Medication Instructions Recorded metoprolol tartrate 50 mg tablet 75 mg PO BID #270 tabs 11/27/20 losartan 50 mg tablet See Rx Instructions .Route 11/13/21 .COMPLEX #90 tabs warfarin 5 mg tablet See Rx Instructions PO SEE 04/19/22 INSTRUCTIONS #60 tabs Allergies Allergy/AdvReac Type Severity Reaction Status Date / Time lisinopril [LISINOPRIL] Allergy Mild cough Verified 06/19/22 13:34 Barbiturates AdvReac Mild HALLUCINATI Verified 06/19/22 13:34 ONS gabapentin [GABAPENTIN] AdvReac Mild dizziness Verified 06/19/22 13:34 hydrochlorothiazide AdvReac Mild dizziness Verified 06/19/22 13:34 [HYDROCHLOROTHIAZIDE] tramadol [TRAMADOL] AdvReac Mild dizziness Verified 06/19/22 13:34 triamterene [TRIAMTERENE] AdvReac Mild dizziness Verified 06/19/22 13:34 ciprofloxacin AdvReac Diarrhea Verified 06/19/22 13:34 Review of Systems <Flory Vega PA-C - Last Filed: 07/01/22 17:48> Review of Systems ROS Unobtainable: All systems reviewed & are unremarkable except as noted in HPI and below Constitutional Constitutional: Denies chills, Reports fatigue, Denies fever(s), Denies frequent falls, Reports lethargy, Reports poor appetite, Reports weakness and Reports weight loss Eyes Eyes: Denies change in vision, Denies eye discharge, Denies irritation and Denies loss of vision ENT Ears, Nose, Mouth, and Throat: Denies change in voice, Reports dizziness, Denies neck pain, Denies sore throat and Denies throat swelling Cardiovascular Cardiovascular: Denies chest pain, Denies irregular heart rhythm, Denies lightheadedness, Denies palpitations, Denies dyspnea, Denies dyspnea on exertion and Denies orthopnea Respiratory Respiratory: Denies cough, Denies dyspnea, Denies dyspnea on exertion and Denies wheezing Gastrointestinal Gastrointestinal: Denies abdominal pain, Denies change in bowel habits, Denies diarrhea, Reports nausea and Denies vomiting Genitourinary Genitourinary: Denies hematuria, Denies flank pain, Denies urinary incontinence and Denies urinary urgency Musculoskeletal Musculoskeletal: Denies back pain, Denies muscle weakness, Denies neck pain, Denies numbness and Denies tingling Integumentary/Breasts Skin/Breast: Denies pruritus, Denies erythema, Denies rash and Denies wounds Neurologic Neurologic: Denies behavioral changes, Denies confusion, Reports dizziness, Denies frequent falls, Denies loss of vision, Denies numbness, Denies tingling and Reports weakness Psychiatric Psychiatric: Denies anxiety, Denies behavioral changes, Denies confusion, Denies depression, Denies homicidal ideation and Denies suicidal ideation Endocrine Endocrine: Reports fatigue, Denies flushing and Denies palpitations Hematologic/Lymphatic Hematologic/Lymphatic: Denies easy bruising Allergic/Immunologic Allergic/Immunologic: Denies urticaria, Denies throat swelling and Denies wheezing Patient History <Flory Vega PA-C - Last Filed: 07/01/22 17:48> Medical History Age-related cognitive decline Cardiac arrhythmia Chronic atrial fibrillation (10/13/12) Disc degeneration, lumbosacral Essential hypertension Fibrocystic disease of both breasts Hyperlipidemia Irritable bowel syndrome 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) On anticoagulant therapy (11/03/12) Peripheral neuropathy Presence of cardiac pacemaker (09/20/14) Tachy-ness syndrome UTI (urinary tract infection) Surgical History Presence of cardiac pacemaker S/P total abdominal hysterectomy and bilateral salpingo-oophorectomy Status post cholecystectomy Status post dilation and curettage Status post tubal ligation Family History Father Rheumatoid arthritis Mother Breast cancer Social History marital status: household members: family Smoking Status: Never smoker alcohol intake: current Smoking Status: Never smoker alcohol intake frequency: 0-2 drinks per day Substance Use Type: does not use Exam <Flory Vega PA-C - Last Filed: 07/01/22 17:48> Narrative Exam Narrative: Const General:?cooperative, healthy appearing and comfortable [facility] Head:?normal to inspection Ears:?hearing grossly normal bilaterally Nose:?external nose normal Face and sinus:?normal facial exam and sinuses nontender Mouth:?oral mucosae normal Throat:?posterior oropharynx normal Eyes General:?appearance normal, both eyes and all related structures Neck Neck:?normal visual inspection and no lymphadenopathy noted Resp Effort & Inspection:?normal respiratory effort Auscultation:?clear to auscultation bilaterally Cardio Rate:?regular rate Rhythm:?regular rhythm GI Abdomen is soft, nondistended, nontender to palpation. No CVA tenderness. Neuro General:?patient alert, patient awake and patient oriented x3 Initial Vital Signs Initial Vital Signs: Vital Signs Pulse Rate 91 H 07/01/22 11:42 Pulse Oximetry 97 07/01/22 11:42 <Lilian Cheng DO - Last Filed: 07/02/22 10:40> Initial Vital Signs Initial Vital Signs: Vital Signs Pulse Rate 91 H 07/01/22 11:42 Pulse Oximetry 97 07/01/22 11:42 Course <Flory Vega PA-C - Last Filed: 07/01/22 17:48> Orders Ordered: Benzonatate (Benzonatate 100 Mg Capsule) 100 mg PO Q8H PRN PRN Reason: Cough Last Admin: 07/01/22 22:53 Dose: 100 mg Documented By: DACIA Flecainide Acetate (Flecainide 100 Mg Tablet) 50 mg PO BID [facility] Last Admin: 07/02/22 08:47 Dose: 50 mg Documented By: Admin: 07/01/22 20:57 Dose: 50 mg Documented By: FERNANDO Guaifenesin/Dextromethorphan (Guaifenesin/Dm 200/20 Mg/10 Ml Udc) 10 ml PO Q6HR PRN PRN Reason: Cough Last Admin: 07/02/22 10:28 Dose: 10 ml Documented By: MOLLY Dextrose/Sodium Chloride (Dextrose 5%-0.9% Ns) 1,000 mls @ 80 mls/hr IV CONT [facility] Last Admin: 07/02/22 06:02 Dose: 80 mls/hr Documented By: Infusion: 07/02/22 06:02 Dose: 80 mls/hr Documented By: Admin: 07/01/22 18:13 Dose: 80 mls/hr Documented By: HCW Ampicillin Sodium 1,000 mg/ (Sodium Chloride) 100 mls @ 200 mls/hr IV Q6H [facility] Last Infusion: 07/02/22 10:23 Dose: 0 mls/hr Documented By: Admin: 07/02/22 08:45 Dose: 200 mls/hr Documented By: MOLLY Losartan Potassium (Losartan 50 Mg Tablet) 50 mg PO DAILY [facility] Last Admin: 07/02/22 08:54 Dose: Not Given Documented By: MOLLY Metoprolol Tartrate (Metoprolol Ir 50 Mg Tablet) 75 mg PO BID JOHN Last Admin: 07/02/22 08:47 Dose: 75 mg Documented By: Admin: 07/01/22 20:59 Dose: 75 mg Documented By: FERNANDO Naloxone HCl (Naloxone 0.4 Mg/Ml Vial) 0.2 mg IV Q2MIN PRN PRN Reason: Opiate Reversal Nystatin (Nystatin Powder 15gm) 1 applic TOP TID PRN PRN Reason: Rash Last Admin: 07/02/22 10:28 Dose: 1 applic Documented By: MOLLY Ondansetron HCl (Ondansetron 4 Mg/2 Ml Inj) 4 mg IV Q6HR PRN PRN Reason: Nausea And Vomiting Last Admin: 07/02/22 01:59 Dose: 4 mg Documented By: FERNANDO Discontinued Medications Sodium Chloride (Normal Saline 0.9%) 1,000 mls @ 1,000 mls/hr IV BOLUS ONE Stop: 07/01/22 14:19 Last Infusion: 07/01/22 15:16 Dose: 0 mls/hr Documented By: Admin: 07/01/22 13:41 Dose: 1,000 mls/hr Documented By: RB Phytonadione 5 mg/ Sodium (Chloride) 100.5 mls @ 201 mls/hr IV NOW ONE Stop: 07/01/22 16:26 Last Admin: 07/01/22 17:32 Dose: 201 mls/hr Documented By: FRAN Meclizine HCl (Meclizine Hcl 12.5 Mg Tablet) 25 mg PO NOW ONE Stop: 07/01/22 13:52 Last Admin: 07/01/22 14:24 Dose: 25 mg Documented By: RB Ondansetron HCl (Ondansetron 4 Mg/2 Ml Inj) 4 mg IV NOW ONE Stop: 07/01/22 13:21 Last Admin: 07/01/22 13:41 Dose: 4 mg Documented By: RB Vital Signs Vital signs: Vital Signs - 8 hr 07/01/22 11:50 07/01/22 11:42 07/01/22 11:43 Temperature 97.8 F Pulse Rate 91 H 91 H Respiratory Rate 17 Blood Pressure 165/87 H 165/87 H Pulse Oximetry 96 97 Oxygen Delivery Method Room Air 07/01/22 11:43 07/01/22 12:11 07/01/22 12:30 Temperature Pulse Rate 90 91 H 87 Respiratory Rate 12 21 Blood Pressure Pulse Oximetry 97 99 98 Oxygen Delivery Method 07/01/22 12:34 07/01/22 12:34 07/01/22 13:00 Temperature Pulse Rate 89 Respiratory Rate 13 Blood Pressure 137/83 144/97 H Pulse Oximetry 99 Oxygen Delivery Method 07/01/22 13:00 07/01/22 13:37 07/01/22 13:41 Temperature Pulse Rate 86 83 71 Respiratory Rate 16 13 Blood Pressure Pulse Oximetry 97 92 98 Oxygen Delivery Method 07/01/22 13:41 07/01/22 14:00 07/01/22 14:00 Temperature Pulse Rate 76 Respiratory Rate 23 Blood Pressure 134/85 127/73 Pulse Oximetry 95 Oxygen Delivery Method 07/01/22 14:29 07/01/22 14:30 07/01/22 14:30 Temperature Pulse Rate 75 86 Respiratory Rate 18 Blood Pressure 124/84 Pulse Oximetry 98 98 Oxygen Delivery Method 07/01/22 15:00 07/01/22 15:01 07/01/22 15:14 Temperature Pulse Rate 90 94 H Respiratory Rate Blood Pressure 104/65 Pulse Oximetry 94 92 Oxygen Delivery Method 07/01/22 15:14 07/01/22 15:15 07/01/22 15:15 Temperature Pulse Rate 71 96 H Respiratory Rate 16 Blood Pressure 103/67 Pulse Oximetry 93 94 Oxygen Delivery Method <Lilian Cheng, DO - Last Filed: 07/02/22 10:40> Orders Ordered: Benzonatate (Benzonatate 100 Mg Capsule) 100 mg PO Q8H PRN PRN Reason: Cough Last Admin: 07/01/22 22:53 Dose: 100 mg Documented By: TLS Flecainide Acetate (Flecainide 100 Mg Tablet) 50 mg PO BID JOHN Last Admin: 07/02/22 08:47 Dose: 50 mg Documented By: Admin: 07/01/22 20:57 Dose: 50 mg Documented By: FERNANDO Guaifenesin/Dextromethorphan (Guaifenesin/Dm 200/20 Mg/10 Ml Udc) 10 ml PO Q6HR PRN PRN Reason: Cough Last Admin: 07/02/22 10:28 Dose: 10 ml Documented By: MOLLY Dextrose/Sodium Chloride (Dextrose 5%-0.9% Ns) 1,000 mls @ 80 mls/hr IV CONT [facility] Last Admin: 07/02/22 06:02 Dose: 80 mls/hr Documented By: Infusion: 07/02/22 06:02 Dose: 80 mls/hr Documented By: Admin: 07/01/22 18:13 Dose: 80 mls/hr Documented By: HCW Ampicillin Sodium 1,000 mg/ (Sodium Chloride) 100 mls @ 200 mls/hr IV Q6H [facility] Last Infusion: 07/02/22 10:23 Dose: 0 mls/hr Documented By: Admin: 07/02/22 08:45 Dose: 200 mls/hr Documented By: MOLLY Losartan Potassium (Losartan 50 Mg Tablet) 50 mg PO DAILY [facility] Last Admin: 07/02/22 08:54 Dose: Not Given Documented By: MOLLY Metoprolol Tartrate (Metoprolol Ir 50 Mg Tablet) 75 mg PO BID [facility] Last Admin: 07/02/22 08:47 Dose: 75 mg Documented By: Admin: 07/01/22 20:59 Dose: 75 mg Documented By: FERNANDO Naloxone HCl (Naloxone 0.4 Mg/Ml Vial) 0.2 mg IV Q2MIN PRN PRN Reason: Opiate Reversal Nystatin (Nystatin Powder 15gm) 1 applic TOP TID PRN PRN Reason: Rash Last Admin: 07/02/22 10:28 Dose: 1 applic Documented By: MOLLY Ondansetron HCl (Ondansetron 4 Mg/2 Ml Inj) 4 mg IV Q6HR PRN PRN Reason: Nausea And Vomiting Last Admin: 07/02/22 01:59 Dose: 4 mg Documented By: [facility] Discontinued Medications Sodium Chloride (Normal Saline 0.9%) 1,000 mls @ 1,000 mls/hr IV BOLUS ONE Stop: 07/01/22 14:19 Last Infusion: 07/01/22 15:16 Dose: 0 mls/hr Documented By: Admin: 07/01/22 13:41 Dose: 1,000 mls/hr Documented By: RB Phytonadione 5 mg/ Sodium (Chloride) 100.5 mls @ 201 mls/hr IV NOW ONE Stop: 07/01/22 16:26 Last Admin: 07/01/22 17:32 Dose: 201 mls/hr Documented By: RB Meclizine HCl (Meclizine Hcl 12.5 Mg Tablet) 25 mg PO NOW ONE Stop: 07/01/22 13:52 Last Admin: 07/01/22 14:24 Dose: 25 mg Documented By: RB Ondansetron HCl (Ondansetron 4 Mg/2 Ml Inj) 4 mg IV NOW ONE Stop: 07/01/22 13:21 Last Admin: 07/01/22 13:41 Dose: 4 mg Documented By: RB Vital Signs Vital signs: Vital Signs - 8 hr 07/01/22 11:50 07/01/22 11:42 07/01/22 11:43 Temperature 97.8 F Pulse Rate 91 H 91 H Respiratory Rate 17 Blood Pressure 165/87 H 165/87 H Pulse Oximetry 96 97 Oxygen Delivery Method Room Air 07/01/22 11:43 07/01/22 12:11 07/01/22 12:30 Temperature Pulse Rate 90 91 H 87 Respiratory Rate 12 21 Blood Pressure Pulse Oximetry 97 99 98 Oxygen Delivery Method 07/01/22 12:34 07/01/22 12:34 07/01/22 13:00 Temperature Pulse Rate 89 Respiratory Rate 13 Blood Pressure 137/83 144/97 H Pulse Oximetry 99 Oxygen Delivery Method 07/01/22 13:00 07/01/22 13:37 07/01/22 13:41 Temperature Pulse Rate 86 83 71 Respiratory Rate 16 13 Blood Pressure Pulse Oximetry 97 92 98 Oxygen Delivery Method 07/01/22 13:41 07/01/22 14:00 07/01/22 14:00 Temperature Pulse Rate 76 Respiratory Rate 23 Blood Pressure 134/85 127/73 Pulse Oximetry 95 Oxygen Delivery Method 07/01/22 14:29 07/01/22 14:30 07/01/22 14:30 Temperature Pulse Rate 75 86 Respiratory Rate 18 Blood Pressure 124/84 Pulse Oximetry 98 98 Oxygen Delivery Method 07/01/22 15:00 07/01/22 15:01 07/01/22 15:14 Temperature Pulse Rate 90 94 H Respiratory Rate Blood Pressure 104/65 Pulse Oximetry 94 92 Oxygen Delivery Method 07/01/22 15:14 07/01/22 15:15 07/01/22 15:15 Temperature Pulse Rate 71 96 H Respiratory Rate 16 Blood Pressure 103/67 Pulse Oximetry 93 94 Oxygen Delivery Method MDM - Nausea/Vomiting/Diarrhea <Hyma Gary, PA-C - Last Filed: 07/01/22 17:48> Lab Data 07/01/22 12:30 07/01/22 12:30 Labs: Lab Results 07/01/22 07/01/22 07/01/22 Range/Units 11:23 12:30 12:30 WBC 6.3 (4.5-11.0) X10^3/uL RBC 5.25 H (4.0-5.2) X10^6/uL Hgb 15.5 (12.0-16.0) g/dL Hct 46.8 H (36-46) % MCV 89.3 (80-100) fL MCH 29.5 (26-34) PG MCHC 33.0 (30-36) % RDW 13.1 (11.6-14.8) % Plt Count 206 (150-400) X10^3/uL Neut % (Auto) 70.3 (50-75) % Lymph % (Auto) 19.0 L (25-40) % Heard % (Auto) 7.9 (3-14) % Eos % (Auto) 1.6 L (2-4) % Baso % (Auto) 1.2 (0-2) % Neut # (Auto) 4400 (1369-4258) /uL Lymph # (Auto) 1200 (8703-5080) /uL Heard # (Auto) 500 (0-900) /uL Eos # (Auto) 100 (0-450) /uL Baso # (Auto) 100 (0-100) /uL PT 72.9 H (10.1-12.7) SECONDS INR 6.2 H* (0.9-1.3) APTT 62 H (26-36) SECONDS Sodium (137-145) mmol/L Potassium (3.4-5.1) mmol/L Chloride (98-107) mmol/L Carbon Dioxide (22-32) mmol/L BUN (7-17) mg/dL Creatinine (0.52-1.04) mg/dL Estimated GFR (>60) mL/min BUN/Creatinine Ratio (6-22) Glucose (80-110) mg/dL Lactate (0.7-2.1) mmol/L Calcium (8.4-10.2) mg/dL Total Bilirubin (0.2-1.3) mg/dL AST (14-36) IU/L ALT (<35) IU/L Alkaline Phosphatase (38-126) U/L Total Creatine Kinase 34 (30-135) U/L CK-MB (CK-2) TNP CK-MB (CK-2) Rel Index TNP Troponin I < 0.012 (0.01-0.034) ng/mL Total Protein (6.3-8.2) g/dL Albumin (3.5-5.0) g/dL Globulin (1.7-4.1) g/dL Albumin/Globulin Ratio (1.0-2.8) Lipase (23-300) U/L SARS-CoV-2 (PCR) (Negative) Influenza A (RT-PCR) (NEGATIVE) Influenza B (RT-PCR) (NEGATIVE) RSV (PCR) (Negative) 07/01/22 07/01/22 07/01/22 Range/Units 12:30 12:30 14:25 WBC (4.5-11.0) X10^3/uL RBC (4.0-5.2) X10^6/uL Hgb (12.0-16.0) g/dL Hct (36-46) % MCV (80-100) fL MCH (26-34) PG MCHC (30-36) % RDW (11.6-14.8) % Plt Count (150-400) X10^3/uL Neut % (Auto) (50-75) % Lymph % (Auto) (25-40) % Heard % (Auto) (3-14) % Eos % (Auto) (2-4) % Baso % (Auto) (0-2) % Neut # (Auto) (2028-4373) /uL Lymph # (Auto) (1591-7710) /uL Heard # (Auto) (0-900) /uL Eos # (Auto) (0-450) /uL Baso # (Auto) (0-100) /uL PT (10.1-12.7) SECONDS INR (0.9-1.3) APTT (26-36) SECONDS Sodium 137 (137-145) mmol/L Potassium 4.1 (3.4-5.1) mmol/L Chloride 102 (98-107) mmol/L Carbon Dioxide 22 (22-32) mmol/L BUN 22 H (7-17) mg/dL Creatinine 1.09 H (0.52-1.04) mg/dL Estimated GFR 49 L (>60) mL/min BUN/Creatinine Ratio 20.2 (6-22) Glucose 169 H (80-110) mg/dL Lactate 1.7 (0.7-2.1) mmol/L Calcium 9.1 (8.4-10.2) mg/dL Total Bilirubin 0.9 (0.2-1.3) mg/dL AST 44 H (14-36) IU/L ALT 35 H (<35) IU/L Alkaline Phosphatase 69 (38-126) U/L Total Creatine Kinase (30-135) U/L CK-MB (CK-2) CK-MB (CK-2) Rel Index Troponin I (0.01-0.034) ng/mL Total Protein 7.8 (6.3-8.2) g/dL Albumin 4.2 (3.5-5.0) g/dL Globulin 3.6 (1.7-4.1) g/dL Albumin/Globulin Ratio 1.2 (1.0-2.8) Lipase 176 (23-300) U/L SARS-CoV-2 (PCR) Negative (Negative) Influenza A (RT-PCR) Flu a negative (NEGATIVE) Influenza B (RT-PCR) Flu b negative (NEGATIVE) RSV (PCR) Positive A (Negative) Point of Care Testing Stool Occult Blood Positive MDM Narrative Medical decision making narrative: 86-year-old female with past medical history vascular dementia, hyperlipidemia, essential hypertension, chronic atrial fibrillation, status post pacemaker, on warfarin brought in by daughter and caregiver for nausea diarrhea, for oral intake. Concern for viral syndrome versus ACS versus CHF versus pneumonia versus dehydration versus UTI versus gastroenteritis versus supratherapeutic INR versus GI bleed versus vertigo versus other. Will order labs, EKG, chest x-ray, troponin, BNP, lipase, lactate, coags, UA. Will give IV fluids, Zofran, meclizine. Will reassess. INR supratherapeutic at 6.2. Guaiac positive. RSV positive. EKG with atrial fibrillation, no acute ST-T changes. Chest x-ray with stable cardiomegaly and no pulmonary findings. Given supratherapeutic INR and positive guaiac, will give 5 mg vitamin K IV. Dr. Cheatham was consulted for admission to observation, he accepted patient. Patient stable in the ED throughout stay. Data collected from:? Patient, patient's daughter, patient's caregiver ? Medical records reviewed:??Yes ? Disposition: see below, along with detailed discharge instructions that have been reviewed with patient as well as indications for ED re-evaluation and additional outpatient follow up <Lilian Cheng, - Last Filed: 07/02/22 10:40> Lab Data Labs: Lab Results 07/01/22 07/01/22 07/01/22 Range/Units 11:23 12:30 12:30 WBC 6.3 (4.5-11.0) X10^3/uL RBC 5.25 H (4.0-5.2) X10^6/uL Hgb 15.5 (12.0-16.0) g/dL Hct 46.8 H (36-46) % MCV 89.3 (80-100) fL MCH 29.5 (26-34) PG MCHC 33.0 (30-36) % RDW 13.1 (11.6-14.8) % Plt Count 206 (150-400) X10^3/uL Neut % (Auto) 70.3 (50-75) % Lymph % (Auto) 19.0 L (25-40) % Heard % (Auto) 7.9 (3-14) % Eos % (Auto) 1.6 L (2-4) % Baso % (Auto) 1.2 (0-2) % Neut # (Auto) 4400 (6908-7390) /uL Lymph # (Auto) 1200 (2897-0882) /uL Heard # (Auto) 500 (0-900) /uL Eos # (Auto) 100 (0-450) /uL Baso # (Auto) 100 (0-100) /uL PT 72.9 H (10.1-12.7) SECONDS INR 6.2 H* (0.9-1.3) APTT 62 H (26-36) SECONDS Sodium (137-145) mmol/L Potassium (3.4-5.1) mmol/L Chloride (98-107) mmol/L Carbon Dioxide (22-32) mmol/L BUN (7-17) mg/dL Creatinine (0.52-1.04) mg/dL Estimated GFR (>60) mL/min BUN/Creatinine Ratio (6-22) Glucose (80-110) mg/dL Lactate (0.7-2.1) mmol/L Calcium (8.4-10.2) mg/dL Total Bilirubin (0.2-1.3) mg/dL AST (14-36) IU/L ALT (<35) IU/L Alkaline Phosphatase (38-126) U/L Total Creatine Kinase 34 (30-135) U/L CK-MB (CK-2) TNP CK-MB (CK-2) Rel Index TNP Troponin I < 0.012 (0.01-0.034) ng/mL Total Protein (6.3-8.2) g/dL Albumin (3.5-5.0) g/dL Globulin (1.7-4.1) g/dL Albumin/Globulin Ratio (1.0-2.8) Lipase (23-300) U/L SARS-CoV-2 (PCR) (Negative) Influenza A (RT-PCR) (NEGATIVE) Influenza B (RT-PCR) (NEGATIVE) RSV (PCR) (Negative) 07/01/22 07/01/22 07/01/22 Range/Units 12:30 12:30 14:25 WBC (4.5-11.0) X10^3/uL RBC (4.0-5.2) X10^6/uL Hgb (12.0-16.0) g/dL Hct (36-46) % MCV (80-100) fL MCH (26-34) PG MCHC (30-36) % RDW (11.6-14.8) % Plt Count (150-400) X10^3/uL Neut % (Auto) (50-75) % Lymph % (Auto) (25-40) % Heard % (Auto) (3-14) % Eos % (Auto) (2-4) % Baso % (Auto) (0-2) % Neut # (Auto) (9358-2242) /uL Lymph # (Auto) (4947-4127) /uL Heard # (Auto) (0-900) /uL Eos # (Auto) (0-450) /uL Baso # (Auto) (0-100) /uL PT (10.1-12.7) SECONDS INR (0.9-1.3) APTT (26-36) SECONDS Sodium 137 (137-145) mmol/L Potassium 4.1 (3.4-5.1) mmol/L Chloride 102 (98-107) mmol/L Carbon Dioxide 22 (22-32) mmol/L BUN 22 H (7-17) mg/dL Creatinine 1.09 H (0.52-1.04) mg/dL Estimated GFR 49 L (>60) mL/min BUN/Creatinine Ratio 20.2 (6-22) Glucose 169 H (80-110) mg/dL Lactate 1.7 (0.7-2.1) mmol/L Calcium 9.1 (8.4-10.2) mg/dL Total Bilirubin 0.9 (0.2-1.3) mg/dL AST 44 H (14-36) IU/L ALT 35 H (<35) IU/L Alkaline Phosphatase 69 (38-126) U/L Total Creatine Kinase (30-135) U/L CK-MB (CK-2) CK-MB (CK-2) Rel Index Troponin I (0.01-0.034) ng/mL Total Protein 7.8 (6.3-8.2) g/dL Albumin 4.2 (3.5-5.0) g/dL Globulin 3.6 (1.7-4.1) g/dL Albumin/Globulin Ratio 1.2 (1.0-2.8) Lipase 176 (23-300) U/L SARS-CoV-2 (PCR) Negative (Negative) Influenza A (RT-PCR) Flu a negative (NEGATIVE) Influenza B (RT-PCR) Flu b negative (NEGATIVE) RSV (PCR) Positive A (Negative) Point of Care Testing Stool Occult Blood Positive Discharge Plan Departure Patient Disposition: Admitted as Observation Clinical Impression: Elevated INR Admit Date/Time: 07/01/22 16:34 Admit Provider: Ollie Cheatham <Lilian Cheng, DO - Last Filed: 07/02/22 10:40> Cosign ED Attending Cosignature Attestation: I was immediately available in the department for consultation. Documentation has been reviewed.
[2022-07-01 14:12] LABS: Creatine Kinase 34 U/L (30-135)
[2022-07-01] MEDS: MECLIZINE HCL 12.5 MG TABLET 25 MG PO (14:24)
[2022-07-01 14:25] LABS: Troponin I < 0.012 ng/mL (0.01-0.034)
[2022-07-01 15:17] LABS: Influenza A - CEPHEID Flu A NEGATIVE (NEGATIVE); Influenza B - CEPHEID Flu B NEGATIVE (NEGATIVE); Respiratory Syncytial Virus POSITIVE (Negative)
[2022-07-01 15:23] LABS: COVID-19 CEPHEID 4-PLEX PCR Negative (Negative)
--- NOTE | 2022-07-01 17:08 | PM.HP.1 ---
History of Present Illness History of Present Illness Date Patient Seen: 07/01/22 Time Patient Seen: 17:09 Chief complaint: RSV not eating/diarrhea/nausea Narrative: 86-year-old female who normally sees Dr. Zane Shine admitted via emergency department with increasing weakness. She is had some nausea vomiting as well. Patient apparently diagnosed with RSV on 06/19/2022. She is some better than that but is persisting with limited oral intake some nausea diarrhea etcetera. Coughing is the part that is much better. Family with whom she lives has noticed that she is increasingly weak requiring assistance with her ADLs and getting to the bathroom which is not the case at baseline. Diarrhea has been normal up until the last episode 1 was somewhat darkish in color. This was several hours prior to my evaluation, and she is had no further stool output per family. There apparently been no fever chills nausea vomiting. (Patient with an element of dementia difficult to obtain an accurate history from patient herself). Patient also recently had a UTI treated via the walk-in clinic with appropriate antibiotic therapy. Patient on warfarin and has missed several INR checks recently because of her illness. She was also recently started on flecainide by Cardiology which may have affected her INR in this interval ER evaluation demonstrates slight increasing creatinine, INR 6.2. Normal hemoglobin hematocrit (actually somewhat hemoconcentrated with elevated hematocrit), normal white blood cell count and platelet count. Urinalysis is not yet been obtained. Chest x-ray unremarkable as his ECG which demonstrates her chronic atrial fibrillation. Patient is also guaiac-positive although stool obtained did not appear to be visually bloody or melanotic per ER provider. Patient with history of chronic atrial fibrillation chronically anticoagulated due for pacemaker replacement as it is at end of battery life. Recently started on flecainide by Cardiology (as per Cardiology PAs notes) in effort to cardiovert her prior to pacemaker change. 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) On anticoagulant therapy (11/03/12) Peripheral neuropathy Presence of cardiac pacemaker (09/20/14) Tachy-ness syndrome UTI (urinary tract infection) Surgical History Presence of cardiac pacemaker S/P total abdominal hysterectomy and bilateral salpingo-oophorectomy Status post cholecystectomy Status post dilation and curettage Status post tubal ligation Family & Social History Family History Father Rheumatoid arthritis Mother Breast cancer Safety & Behavioral: Feels Safe in Current Yes Environment Been Physically Hurt or No Threatened By a Person Tobacco & Substance use: Smoking Status Never smoker alcohol intake current alcohol intake frequency 0-2 drinks per day Substance Use Type does not use Meds Home Medications and Allergies Home Medications Medication Instructions Recorded Confirmed Type metoprolol tartrate 50 mg tablet 75 mg PO BID #270 tabs 11/27/20 07/01/22 Rx losartan 50 mg tablet See Rx Instructions .Route 11/13/21 07/01/22 Rx .COMPLEX #90 tabs warfarin 5 mg tablet See Rx Instructions PO SEE 04/19/22 07/01/22 Rx INSTRUCTIONS #60 tabs dorzolamide 2 % eye drops 1 drp ophthalmic (eye) DAILY 07/01/22 07/01/22 History flecainide 50 mg tablet 50 mg PO BID 07/01/22 07/01/22 History Allergies Allergy/AdvReac Type Severity Reaction Status Date / Time lisinopril [LISINOPRIL] Allergy Mild cough Verified 06/19/22 13:34 Barbiturates AdvReac Mild HALLUCINATI Verified 06/19/22 13:34 ONS gabapentin [GABAPENTIN] AdvReac Mild dizziness Verified 06/19/22 13:34 hydrochlorothiazide AdvReac Mild dizziness Verified 06/19/22 13:34 [HYDROCHLOROTHIAZIDE] tramadol [TRAMADOL] AdvReac Mild dizziness Verified 06/19/22 13:34 triamterene [TRIAMTERENE] AdvReac Mild dizziness Verified 06/19/22 13:34 ciprofloxacin AdvReac Diarrhea Verified 06/19/22 13:34 Exam Vital Signs (past 8 hours): - 07/01/22 11:50 07/01/22 11:42 07/01/22 11:43 Temperature 97.8 F Pulse Rate 91 H 91 H Respiratory Rate 17 Blood Pressure 165/87 H 165/87 H Pulse Oximetry 96 97 Oxygen Delivery Method Room Air 07/01/22 11:43 07/01/22 12:11 07/01/22 12:30 Temperature Pulse Rate 90 91 H 87 Respiratory Rate 12 21 Blood Pressure Pulse Oximetry 97 99 98 Oxygen Delivery Method 07/01/22 12:34 07/01/22 12:34 07/01/22 13:00 Temperature Pulse Rate 89 Respiratory Rate 13 Blood Pressure 137/83 144/97 H Pulse Oximetry 99 Oxygen Delivery Method 07/01/22 13:00 07/01/22 13:37 07/01/22 13:41 Temperature Pulse Rate 86 83 71 Respiratory Rate 16 13 Blood Pressure Pulse Oximetry 97 92 98 Oxygen Delivery Method 07/01/22 13:41 07/01/22 14:00 07/01/22 14:00 Temperature Pulse Rate 76 Respiratory Rate 23 Blood Pressure 134/85 127/73 Pulse Oximetry 95 Oxygen Delivery Method 07/01/22 14:29 07/01/22 14:30 07/01/22 14:30 Temperature Pulse Rate 75 86 Respiratory Rate 18 Blood Pressure 124/84 Pulse Oximetry 98 98 Oxygen Delivery Method 07/01/22 15:00 07/01/22 15:01 07/01/22 15:14 Temperature Pulse Rate 90 94 H Respiratory Rate Blood Pressure 104/65 Pulse Oximetry 94 92 Oxygen Delivery Method 07/01/22 15:14 07/01/22 15:15 07/01/22 15:15 Temperature Pulse Rate 71 96 H Respiratory Rate 16 Blood Pressure 103/67 Pulse Oximetry 93 94 Oxygen Delivery Method Oxygen Delivery Method Room Air Narrative Exam Narrative: elderly female in no obvious distress lying on a gurney in the emergency department HEENT- unremarkable Lungs-clear with good breath sounds and uses bit of a cough Heart- irregularly regular no murmur Abdomen- benign, positive bowel tones soft nontender nondistended Extremities- no cyanosis clubbing or edema Objective Labs 07/01/22 12:30 07/01/22 12:30 Labs: Laboratory Results - last 24 hr 07/01/22 07/01/22 07/01/22 11:23 12:30 12:30 WBC 6.3 RBC 5.25 H Hgb 15.5 Hct 46.8 H MCV 89.3 MCH 29.5 MCHC 33.0 RDW 13.1 Plt Count 206 Neut % (Auto) 70.3 Lymph % (Auto) 19.0 L [place] % (Auto) 7.9 Eos % (Auto) 1.6 L Baso % (Auto) 1.2 Neut # (Auto) 4400 Lymph # (Auto) 1200 [place] # (Auto) 500 Eos # (Auto) 100 Baso # (Auto) 100 PT 72.9 H INR 6.2 H* APTT 62 H Sodium Potassium Chloride Carbon Dioxide BUN Creatinine Estimated GFR BUN/Creatinine Ratio Glucose Lactate Calcium Total Bilirubin AST ALT Alkaline Phosphatase Total Creatine Kinase 34 CK-MB (CK-2) TNP CK-MB (CK-2) Rel Index TNP Troponin I < 0.012 Total Protein Albumin Globulin Albumin/Globulin Ratio Lipase SARS-CoV-2 (PCR) Influenza A (RT-PCR) Influenza B (RT-PCR) RSV (PCR) 07/01/22 07/01/22 07/01/22 12:30 12:30 14:25 WBC RBC Hgb Hct MCV MCH MCHC RDW Plt Count Neut % (Auto) Lymph % (Auto) [place] % (Auto) Eos % (Auto) Baso % (Auto) Neut # (Auto) Lymph # (Auto) [place] # (Auto) Eos # (Auto) Baso # (Auto) PT INR APTT Sodium 137 Potassium 4.1 Chloride 102 Carbon Dioxide 22 BUN 22 H Creatinine 1.09 H Estimated GFR 49 L BUN/Creatinine Ratio 20.2 Glucose 169 H Lactate 1.7 Calcium 9.1 Total Bilirubin 0.9 AST 44 H ALT 35 H Alkaline Phosphatase 69 Total Creatine Kinase CK-MB (CK-2) CK-MB (CK-2) Rel Index Troponin I Total Protein 7.8 Albumin 4.2 Globulin 3.6 Albumin/Globulin Ratio 1.2 Lipase 176 SARS-CoV-2 (PCR) Negative Influenza A (RT-PCR) Flu a negative Influenza B (RT-PCR) Flu b negative RSV (PCR) Positive A Assessment & Plan Assessment & Plan narrative: 1. Guaiac-positive stool in the setting of an elevated INR and global weakness-patient to be admitted to observation for monitoring while looking for evidence of large volume GI bleed which seems unlikely at this point. Patient received some IV vitamin K in the emergency department in her warfarin will be held. At this point seems unlikely to me that she actually has any active GI bleeding of any real concern but obviously observation makes sense 2. Dehydration-patient probably some element of volume depletion hence the elevated hematocrit and creatinine. She is received some IV fluids in the ER will continue IV fluids for now. 3. GI-patient with active symptoms nausea vomiting maybe some degree of orthostasis from volume depletion. Will treat with IV antiemetics IV fluids as above. Likely secondary to her RSV. Does have a slight bump in her transaminases suggestive probably of maybe mild dehydration verses persistence of viral issues. Continue to monitor plan to recheck tomorrow. 4. RSV-patient with recent RSV infection. Not testing negative as yet but unlikely to be persistently infective. No real pulmonary symptoms which have improved as expected with usual clinical course. Obviously her weakness is more likely secondary to recovery from this infection at her age with her comorbidities etcetera 5. Weakness-likely secondary to recent RSV age and comorbidities. Physical therapy evaluation and probable home health services upon discharge makes sense. Patient with recent UTI as well and plan to recheck for evidence of persistent UTI in addition. 6. Chronic atrial fibrillation-patient appears to be rate controlled at this time. Continue current medications including her flecainide. Her warfarin course will be held as above 7. VTE prophylaxis-SCDs only. Not a candidate for any sort of anticoagulation given the question GI bleed as above 8. Code status-patient has a do not resuscitate in the form of a POLST form at home. Discussed with patient and daughter who is with her here in the emergency department today and initially were uncertain but after discussion became clear that she really would not want to be resuscitated in the event of a sudden cardiac or respiratory arrest which is the reason why she has the POLST form at home. 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 9. Coagulopathy-patient has received IV vitamin K. She will remain off warfarin. Given lack of evidence of large volume bleeding with hemodynamic instability etcetera I am disinclined to be more aggressive about reversing her anticoagulation but if need be we could certainly give her Kcentra verses FFP or additional doses of vitamin K. Plan to recheck protime in the morning COVID-19 COVID-19 status: Negative Result date/Date tested (Pos, Neg/Pending): 07/01/22
[2022-07-01] MEDS: PHYTONADIONE (VIT K1) 5 MG in SODIUM CHLORIDE 0.9% 100 ML 201 MG IV (17:32)
[2022-07-01] MEDS: DEXTROSE 5%-0.9% NS 1,000 ML 80 ML IV (18:13)
[2022-07-01] MEDS: FLECAINIDE 100 MG TABLET 50 MG PO (20:57)
[2022-07-01] MEDS: METOPROLOL IR 50 MG TABLET 75 MG PO (20:59)
[2022-07-01 21:00] LABS: Appearance Urine UA CLEAR; Bilirubin Urine UA 1+ (NEGATIVE); Color Urine UA YELLOW; Glucose Urine UA NEGATIVE (Negative); Ketones Urine UA 1+ (NEGATIVE); Leukocyte Esterase Urine UA NEGATIVE (NEGATIVE); Nitrite Urine UA NEGATIVE (Negative); Occult Blood Urine UA 2+ (Negative); Protein Urine UA NEGATIVE (Negative); Specific Gravity Urine UA >=1.030 (1.000-1.035); Urobilinogen Urine UA 0.2 E.U./dL (0.2)
[2022-07-01 21:01] LABS: pH Urine UA 5.5 (4.5-8.0)
[2022-07-01 21:05] LABS: Ictotest Urine Negative (Negative)
[2022-07-01 21:13] LABS: Bacteria Urine Few (2-10); Culture Indicated Urine Cult Not Indicated; Hyaline Casts Urine 1-5/LPF; RBC Urine 1-5/HPF (0-5/HPF); Squamous Epithelial Cell Urine >30 /HPF (0-5/HPF); WBC Urine 0-1/HPF (0-5/HPF)
[2022-07-01] MEDS: BENZONATATE 100 MG CAPSULE PO (22:53)
--- NOTE | 2022-07-01 23:05 | PC.NURSE ---
Addendum entered by Allie Augustin R.N. 07/02/22 02:15: Called into room by daughter as patient was complaining of nausea. Dry heaves but no emesis; medicated with Zofran. Original Note: Patient is alert and very conversant. Seems to have good memory for past events but is only oriented to self and birthdate. Breath sounds with inspiratory/expiratory rhonchi in bilateral upper lobes and expiratory rhonchi in bilateral mid/lower lobes. Denied SOB and RA sat was 96%. Does have an intermittent, moist cough which she states is sometimes productive of a cream colored sputum. HR irregular w/telemetry reading of v-paced; history of afib. Denied nausea. BT present and is passing flatus. Denied dysuria, frequency or urgency; did void earlier on BSC but is also sometimes incontinent of urine so is wearing a brief. Is able to turn herself in bed. Assisted with 1 person + walker to get up to BSC due to weakness. Denied pain. Wearing bilateral calf SCD's. Fall risk score is high and bed alarm is activated. Is on droplet precautions due to being positive for RSV. Daughter rooming in.
[2022-07-02] VITALS (9 sets, daily range): BP systolic 95–135; BP diastolic 58–77; PULSE 68–82; RESP 17–18; TEMP 36.1–36.6; O2SAT 96–98
[2022-07-02] MEDS: ONDANSETRON 4 MG/2 ML INJ IV ×2 (01:59→22:13)
[2022-07-02 05:14] LABS: Add Manual Diff / Slide Review NO; Basophils Absolute Auto 0 /uL (0-100); Basophils Percent Auto 0.6 % (0-2); Eosinophils Absolute Auto 0 /uL (0-450); Eosinophils Percent Auto 0.4 % (2-4); Hematocrit 40.6 % (36-46); Hemoglobin 13.4 g/dL (12.0-16.0); Lymphocytes Absolute Auto 800 /uL (1100-4500); Lymphocytes Percent Auto 13.4 % (25-40); Mean Corpuscular Hemoglobin 29.4 PG (26-34); Mean Corpuscular Volume 89.3 fL (80-100); Monocytes Absolute Auto 500 /uL (0-900); Monocytes Percent Auto 7.7 % (3-14); Neutrophils Absolute Auto 4800 /uL (1500-7000); Neutrophils Percent Auto 77.9 % (50-75); Platelet Count 167 X10^3/uL (150-400); Red Blood Cell Count 4.55 X10^6/uL (4.0-5.2); Red Cell Distribution Width 13.3 % (11.6-14.8); White Blood Cell Count 6.2 X10^3/uL (4.5-11.0)
[2022-07-02 05:17] LABS: INR 1.8 (0.9-1.3); Prothrombin Time 20.2 SECONDS (10.1-12.7)
[2022-07-02 05:30] LABS: Alanine Aminotransferase 32 IU/L (<35); Albumin 3.5 g/dL (3.5-5.0); Albumin Globulin Ratio 1.2 (1.0-2.8); Alkaline Phosphatase 50 U/L (38-126); Aspartate Aminotransferase 34 IU/L (14-36); BUN Creatinine Ratio 20.2 (6-22); Bilirubin Unconjugated 0.6 mg/dL (0.0-1.1); Blood Urea Nitrogen 19 mg/dL (7-17); Carbon Dioxide 23 mmol/L (22-32); Chloride 108 mmol/L (98-107); Estimated Glomerular Filt Rate 59 mL/min (>60); Glucose 166 mg/dL (80-110); HEMOLYSIS < 15 (0-50); Potassium 3.7 mmol/L (3.4-5.1); Sodium 139 mmol/L (137-145); Total Protein 6.5 g/dL (6.3-8.2)
[2022-07-02] MEDS: DEXTROSE 5%-0.9% NS 1,000 ML 80 ML IV ×2 (06:02→21:05)
--- NOTE | 2022-07-02 07:32 | PM.PN.1 ---
Subjective Subjective Date Patient Seen: 07/02/22 Time Patient Seen: 07:32 Interval history: Patient with some nausea since admission. Improved with Zofran. Still coughing pretty vigorously but oxygen saturation etcetera remained normal. She is not overly tachypneic Lab work shows improvement with normalization of her hemoglobin hematocrit and creatinine suggesting she is rehydrated. INR has dropped all the way to 1.8. No further evidence of GI bleeding. Diarrhea not really an issue. Urinalysis is positive for probable infection Exam Vital Signs (past 8 hours): - 07/02/22 00:23 07/02/22 05:12 Temperature 97.8 F 97.9 F Pulse Rate 70 68 Respiratory Rate 18 18 Blood Pressure 103/60 135/77 Pulse Oximetry 97 97 Oxygen Flow Rate 0 0 Oxygen Delivery Method Room Air Oxygen Flow Rate 0 Objective Labs 07/02/22 05:02 07/02/22 05:02 Labs: Laboratory Results - last 24 hr 07/01/22 07/01/22 07/01/22 11:23 12:30 12:30 WBC 6.3 RBC 5.25 H Hgb 15.5 Hct 46.8 H MCV 89.3 MCH 29.5 MCHC 33.0 RDW 13.1 Plt Count 206 Neut % (Auto) 70.3 Lymph % (Auto) 19.0 L [place] % (Auto) 7.9 Eos % (Auto) 1.6 L Baso % (Auto) 1.2 Neut # (Auto) 4400 Lymph # (Auto) 1200 [place] # (Auto) 500 Eos # (Auto) 100 Baso # (Auto) 100 PT 72.9 H INR 6.2 H* APTT 62 H Sodium Potassium Chloride Carbon Dioxide BUN Creatinine Estimated GFR BUN/Creatinine Ratio Glucose Lactate Calcium Total Bilirubin Conjugated Bilirubin Unconjugated Bilirubin AST ALT Alkaline Phosphatase Total Creatine Kinase 34 CK-MB (CK-2) TNP CK-MB (CK-2) Rel Index TNP Troponin I < 0.012 Total Protein Albumin Globulin Albumin/Globulin Ratio Lipase Urine Color Urine Appearance Urine pH Ur Specific [place] Urine Protein Urine Glucose (UA) Urine Ketones Urine Occult Blood Urine Nitrate Urine Bilirubin Ur Bilirubin Confirm Urine Urobilinogen Ur Leukocyte Esterase Urine RBC Urine WBC Ur Squamous Epith Cells Urine Bacteria Hyaline Casts Ur Culture Indicated? SARS-CoV-2 (PCR) Influenza A (RT-PCR) Influenza B (RT-PCR) RSV (PCR) 07/01/22 07/01/22 07/01/22 12:30 12:30 14:25 WBC RBC Hgb Hct MCV MCH MCHC RDW Plt Count Neut % (Auto) Lymph % (Auto) [place] % (Auto) Eos % (Auto) Baso % (Auto) Neut # (Auto) Lymph # (Auto) [place] # (Auto) Eos # (Auto) Baso # (Auto) PT INR APTT Sodium 137 Potassium 4.1 Chloride 102 Carbon Dioxide 22 BUN 22 H Creatinine 1.09 H Estimated GFR 49 L BUN/Creatinine Ratio 20.2 Glucose 169 H Lactate 1.7 Calcium 9.1 Total Bilirubin 0.9 Conjugated Bilirubin Unconjugated Bilirubin AST 44 H ALT 35 H Alkaline Phosphatase 69 Total Creatine Kinase CK-MB (CK-2) CK-MB (CK-2) Rel Index Troponin I Total Protein 7.8 Albumin 4.2 Globulin 3.6 Albumin/Globulin Ratio 1.2 Lipase 176 Urine Color Urine Appearance Urine pH Ur Specific [place] Urine Protein Urine Glucose (UA) Urine Ketones Urine Occult Blood Urine Nitrate Urine Bilirubin Ur Bilirubin Confirm Urine Urobilinogen Ur Leukocyte Esterase Urine RBC Urine WBC Ur Squamous Epith Cells Urine Bacteria Hyaline Casts Ur Culture Indicated? SARS-CoV-2 (PCR) Negative Influenza A (RT-PCR) Flu a negative Influenza B (RT-PCR) Flu b negative RSV (PCR) Positive A 07/01/22 07/02/22 07/02/22 20:50 05:02 05:02 WBC 6.2 RBC 4.55 Hgb 13.4 Hct 40.6 MCV 89.3 MCH 29.4 MCHC 33.0 RDW 13.3 Plt Count 167 Neut % (Auto) 77.9 H Lymph % (Auto) 13.4 L [place] % (Auto) 7.7 Eos % (Auto) 0.4 L Baso % (Auto) 0.6 Neut # (Auto) 4800 Lymph # (Auto) 800 L [place] # (Auto) 500 Eos # (Auto) 0 Baso # (Auto) 0 PT 20.2 H D INR 1.8 H APTT Sodium Potassium Chloride Carbon Dioxide BUN Creatinine Estimated GFR BUN/Creatinine Ratio Glucose Lactate Calcium Total Bilirubin Conjugated Bilirubin Unconjugated Bilirubin AST ALT Alkaline Phosphatase Total Creatine Kinase CK-MB (CK-2) CK-MB (CK-2) Rel Index Troponin I Total Protein Albumin Globulin Albumin/Globulin Ratio Lipase Urine Color Yellow Urine Appearance Clear Urine pH 5.5 Ur Specific [place] >=1.030 H Urine Protein Negative Urine Glucose (UA) Negative Urine Ketones 1+ H Urine Occult Blood 2+ H Urine Nitrate Negative Urine Bilirubin 1+ H Ur Bilirubin Confirm Negative Urine Urobilinogen 0.2 Ur Leukocyte Esterase Negative Urine RBC 1-5/hpf Urine WBC 0-1/hpf Ur Squamous Epith Cells >30 /hpf H Urine Bacteria Few (2-10) H Hyaline Casts 1-5/lpf Ur Culture Indicated? Cult not indicated SARS-CoV-2 (PCR) Influenza A (RT-PCR) Influenza B (RT-PCR) RSV (PCR) 07/02/22 05:02 WBC RBC Hgb Hct MCV MCH MCHC RDW Plt Count Neut % (Auto) Lymph % (Auto) [place] % (Auto) Eos % (Auto) Baso % (Auto) Neut # (Auto) Lymph # (Auto) [place] # (Auto) Eos # (Auto) Baso # (Auto) PT INR APTT Sodium 139 Potassium 3.7 Chloride 108 H Carbon Dioxide 23 BUN 19 H Creatinine 0.94 Estimated GFR 59 L BUN/Creatinine Ratio 20.2 Glucose 166 H Lactate Calcium 8.0 L Total Bilirubin 1.0 Conjugated Bilirubin 0.0 Unconjugated Bilirubin 0.6 AST 34 ALT 32 Alkaline Phosphatase 50 Total Creatine Kinase CK-MB (CK-2) CK-MB (CK-2) Rel Index Troponin I Total Protein 6.5 Albumin 3.5 Globulin 3.0 Albumin/Globulin Ratio 1.2 Lipase Urine Color Urine Appearance Urine pH Ur Specific [place] Urine Protein Urine Glucose (UA) Urine Ketones Urine Occult Blood Urine Nitrate Urine Bilirubin Ur Bilirubin Confirm Urine Urobilinogen Ur Leukocyte Esterase Urine RBC Urine WBC Ur Squamous Epith Cells Urine Bacteria Hyaline Casts Ur Culture Indicated? 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 GI bleed-hemoglobin hematocrit stable. No evidence of large volume bleeding either hemodynamically or was stool output etcetera. I am going to leave her off warfarin for now but probably restart tomorrow. Uncertain as to exact etiology perhaps related to her iatrogenic coagulopathy etcetera 2. Acute kidney injury-much improved after IV fluids. Can probably consider reducing IV fluids sometime the next 24 hours. 3. Positive UA-patient previously had an enterococcal infection documented at the end of May. Treated with oral nitrofurantoin. While that was inappropriate drug based on sensitivities I would like to use a drug with more systemic activity in this case and empirically treat for possible recurrent Enterococcus. I am going to put her on ampicillin which would be appropriate based on sensitivities from previous culture. Other drugs either have interactions or patient has intolerance to making it somewhat more difficult to pick medications. Perhaps this is a source of her weakness as well 4. Respiratory-patient still testing positive for RSV although symptoms have improved by her report she still coughing etcetera. I actually do not believe she is at high risk of transmission will continue basic precautions were transmission here in the hospital. 5. Weakness-patient to be seen by Physical therapy 6. GI-patient is still with poor appetite although no diarrhea has had some nausea. Continue to encourage oral intake etcetera 7. Disposition-I assume patient will improve enough to be discharged home with the addition of home health services sometime in the next 24-48 hours Note: Greater than [] minutes total time was spent on day of service, evaluating the patient on the floor, including examining the patient, discussing clinical course with clinical and nursing staff, reviewing clinical course in the computer, preparing documentation and writing orders for continued management of care, discussing status with family as appropriate, reviewing plans for the next 24 hours with both patient/family and nursing staff as appropriate. Quality VTE Deep Vein Thrombosis/Pulmonary Embolism Present on Admission: No
[2022-07-02] MEDS: AMPICILLIN 1,000 MG in SODIUM CHLORIDE 0.9% 100 ML 200 MG IV ×3 (08:45→21:09)
[2022-07-02] MEDS: METOPROLOL IR 50 MG TABLET 75 MG PO (08:47)
[2022-07-02] MEDS: FLECAINIDE 100 MG TABLET 50 MG PO (08:47)
--- NOTE | 2022-07-02 09:30 | PT.IIE ---
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) On anticoagulant therapy (11/03/12) Peripheral neuropathy Presence of cardiac pacemaker (09/20/14) Tachy-ness syndrome UTI (urinary tract infection) Physical Therapy Inpatient Evaluation/Re-Eval M1 PT/OT-IP Prior Functional Status Start: 07/02/22 11:05 Freq: NEEDED Status: Active Protocol: Document 07/02/22 09:30 AB (Rec: 07/02/22 11:15 [email or web address]) Medical Review Prior Functional Status Medical History Reviewed Yes Communication able to make needs known but with memory issues Mobility and Gait pt's daughter in room and anwered questions for pt: stated that pt is modified independent with all mobilities and uses a 4WW when she feels unsteady; pt needing more assistance after RSV diagnosis back in Activities of Daily Living and IADL's caregiver assists pt with showers Social History Household Members family Living Arrangements House Number of Floors (Floors) Two Floors Number of Stairs To Enter/Railing? pt stays on main level of the house 4 steps wide rails to enter; can only hold on to one rail at a thime Home Environment Standard Height Toilet,Walk in Shower Home Equipment Four Wheel Walker,Straight Cane,Shower Seat without Backrest,Hand Held Shower Additional Social History Comment pt has a caregiver that comes in Mondays to Friday 11-3; family with pt when caregiver is not around daughter stated that they are planning to increase caregiver hours for pt M2 PT-IP Current Condition Start: 07/02/22 11:05 Freq: NEEDED Status: Active Protocol: Document 07/02/22 09:30 AB (Rec: 07/02/22 11:15 [email or web address]) Physical Therapy Current Condition Current Condition Evaluation Date 07/02/22 Treatment Diagnosis RSV; GI bleed; difficulty in walking Onset Date 07/01/22 M3 PT-IP Subjective Start: 07/02/22 11:05 Freq: NEEDED Status: Active Protocol: Document 07/02/22 09:30 AB (Rec: 07/02/22 11:15 AB [email or web address]) Subjective Physical Therapy Visit Type Type Initial Evaluation Visit Start Time 09:30 Visit Stop Time 10:10 Total Visit Minutes 40 Number of RN CLINICAL TRIALS Visits 0 Physical Therapy Visit Comments Patient Comments agreeable to do PT Therapy Pain Assessment Pain When Pain Assessed At Rest Pain Present Pain Present Pain Reported Location Neck Scale Used pain scale not stated Pain Management Techniques Distraction,Modification of Treatment,Re-positioning, Timing of Activity with Medications M4 PT-IP Mobility and Gait Start: 07/02/22 11:05 Freq: NEEDED Status: Active Protocol: Document 07/02/22 09:30 AB (Rec: 07/02/22 11:15 AB [email or web address]) PT-Bed Mobility Assessment Supine to Sit Supine to Sit Standby Assistance Sit to Supine Sit to Supine Standby Assistance PT-Transfer Assessment Comments Mobility Comments BP in supine: 103/65. completed supine to sit SBA. able to sit on EOB SBA to CGA. c/o lightheadedness. BP: 110/68. pt sat for a few minutes and BP checked again: 108/70. pt continues to c/o dizziness adn requested to go lay back in bed. completed sit to supine SBA. BP checked: 81/49. positioned pt in bed. BP checked again: 100 /59. Nurse aware. PT-Balance Assessment Sitting Balance and Reactions Static Sitting Balance Ability Fair Dynamic Sitting Balance Ability Fair M5 PT-IP Objective Assessments Start: 07/02/22 11:05 Freq: NEEDED Status: Active Protocol: Document 07/02/22 09:30 AB (Rec: 07/02/22 11:15 AB [email or web address]) Orientation Orientation/Cognition Level of Alertness Alert Orientation Name,Place,Situation Memory Description Short Term Impaired Gross Range of Motion Lower Extremity ROM Assessment Within Functional Limits Strength Lower Extremity Strength Hip 4-/5 Knee 4-/5 Muscle Tone Muscle Tone WNL Yes M6 PT-IP Treatment Start: 07/02/22 11:05 Freq: NEEDED Status: Active Protocol: Document 07/02/22 09:30 AB (Rec: 07/02/22 11:15 AB [email or web address]) Physical Therapy Treatment Education Education Provided Safety M7 PT-IP Assessment and Plan Start: 07/02/22 11:05 Freq: NEEDED Status: Active Protocol: Document 07/02/22 09:30 (Rec: 07/02/22 11:15 AB [email or web address]) PT Summary Assessment and Plan Potential Rehabilitation Potential Fair Status of Condition at Evaluation Evolving Summary Impairments Pain,ROM,Strength,Balance, Coordination,Sensation,Tone, Cognition,Bed Mobility, Transfers,Gait,Activity Tolerance Assessment Summary pt not able to tolerate much activity with c/o increase dizziness in sitting. BP decreased from 103/59 to 81/49 after sitting on EOB. Pt not able to stand up at this time due to c/o dizziness. will continue to assess progress. pt will have 24/7 assist at home and will conduct caregiver training when appropriate. Goals Bed Mobility Goal Independent Transfer Goal Contact Guard Assistance,Front Wheeled Walker Gait Goal Contact Guard Assistance,Front Wheel Walker Gait Distance 100 Other Goals improve transfers and ambulation using FWW/4WW SBA 150 ft 4 steps 1 rail SBA Days to Meet Goals 10 Frequency of Treatment Frequency Of Treatment Once a Day Treatment Plan Physical Therapy Treatment Plan Bed Mobility Training,Transfer Training,Gait Training, Therapeutic Exercise,Balance Retraining,Discharge Planning, Hot or Cold Pack,Neuromuscular Re-ed,Coordination Retraining ,Manual Therapy Precautions Other Precautions falls; BP Recommendations To Nursing Amount of Assist Needed PT/OT Assist Only Discharge Recommendations PT Discharge Recommendations Home with 24/7 Assist Available,Home Health,SNF Rehab,Home vs SNF Equipment Needed for Home Before FWW if not safe with 4WW Discharge Transportation Needs at Discharge Private Vehicle,Wheelchair/ Cabulance
[2022-07-02] MEDS: GUAIFENESIN/DM 200/20 MG/10 ML UDC PO (10:28)
[2022-07-02] MEDS: NYSTATIN POWDER 15GM 1 APPLIC TOP (10:28)
--- NOTE | 2022-07-02 15:01 | CM.DANOTE ---
Patient is an 86 yo female who was admitted on 07/01/22 for RSV/N/V. Pt has [facility] for insurance and her PCP is Dr. Zane Shine. EMR was reviewed. Per MD, pt with recent dx of RSV and admitted for ongoing RSV, possible GI bleed. Pt still has some coughing but O2 sats remain good and no signs of ongoing active bleed but INR is down. Likely another 24-48 hours for stability and likely HH. PT ordered and pending due to orthostatics. SW met bedside with pt and Dtr/ART Bennett and explained role and they confirm that pt lives with Dtr in [place] and Dtr works but pt has Visiting Erica SANCHEZ M-F from 11-3pm and this could be increased if needed. Dtr provides transport and coordination of care for pt and pt typically uses a single point cane for ambulation but also has 4WW if needed. Dtr states that her sister is also visiting and can stay for an extended amount of time if needed and preference is home at discharge. Pt denies any hx of HH or SNF and they are agreeable with HH and SW provided HH Choice list via Ipad and paper and no HH preference. SW made [facility] referral based on Vendor Calendar and confirmed with Lib[facility] at [facility] that they can open within 24 hours of discharge. SW faxed [facility] referral for review and F2F completed. Plan: SW to follow for PT/OT eval when pt more medically appropriate to confirm plan of home with Dtrs, [facility] Erica SANCHE[facility], and new [facility] referral. SW to fax d/c summary, F2F, and HH orders at discharge to [facility] MICHAEL Sánchez Discharge Planning/Care Management CM Discharge Assessment Start: 07/02/22 14:59 Freq: Status: Active Protocol: Document 07/02/22 14:59 BF (Rec: 07/02/22 15:01 BF [id number]) Discharge Planning Assessment Assigned Salesperson [employer] MICHAEL Chakraborty/Assigned Designee Name Chicolyudmila Bennett Contact Information [phone] Advance Directives? Yes Advance Directives on File No History Provided By Patient,Family Member,Medical Record Has Patient been admitted in last 30 No days? Prior Living Arrangements House Household Members family Type of transporation used prior to Relies on Others admit Independent with ADL's Yes: somewhat Is patient alert and oriented? Yes: mild dementia Needs Assistance With Meal Prep,Managing Medications ,Home Chores / Shopping Caregiver for Another No DME Already Rented / Owned FWW / Walker,Cane Patient/Family Preference Home with Home Health Barriers to Discharge No Discharge Plan Home with Home Health Community Services Physical Therapy,Occupational Therapy,Home Health Aid,Home Health Nurse Transportation Arrangement Dtr bedside and can provide transport at d/c Referrals Initiated Home Health If patient plan is home with home health Yes : Has signed face to face form been completed? Medicare Choice List Provided Yes Medicare choice list reviewed on patient,family electronic tablet with SNF/HH Preference Earliest availability Whiteboard Updated in Patient Room with Yes name and ext. # of Salesperson [employer] Review Status In Process Please Provide Date Initial DC 07/02/22 Assessment Was Performed Next Review Type Continued Stay Review
[2022-07-03] VITALS (7 sets, daily range): BP systolic 98–143; BP diastolic 59–85; PULSE 68–72; RESP 15–18; TEMP 35.8–36.4; O2SAT 93–98
[2022-07-03] MEDS: AMPICILLIN 1,000 MG in SODIUM CHLORIDE 0.9% 100 ML 200 MG IV ×4 (03:02→20:33)
[2022-07-03 05:57] LABS: Hematocrit 38.4 % (36-46); Hemoglobin 12.6 g/dL (12.0-16.0)
[2022-07-03 06:00] LABS: INR 1.2 (0.9-1.3); Prothrombin Time 13.9 SECONDS (10.1-12.7)
[2022-07-03 06:26] LABS: BUN Creatinine Ratio 15.6 (6-22); Blood Urea Nitrogen 14 mg/dL (7-17); Calcium 7.9 mg/dL (8.4-10.2); Carbon Dioxide 23 mmol/L (22-32); Chloride 110 mmol/L (98-107); Estimated Glomerular Filt Rate > 60 mL/min (>60); Glucose 89 mg/dL (80-110); HEMOLYSIS < 15 (0-50); Potassium 3.6 mmol/L (3.4-5.1); Sodium 141 mmol/L (137-145)
[2022-07-03] MEDS: FLECAINIDE 100 MG TABLET 50 MG PO (08:24)
[2022-07-03] MEDS: ONDANSETRON 4 MG/2 ML INJ IV (08:24)
[2022-07-03] MEDS: METOPROLOL IR 25 MG TABLET PO (08:24)
--- NOTE | 2022-07-03 09:00 | P.PN_ITS ---
Subjective Subjective Date Patient Seen: 07/03/22 Time Patient Seen: 09:00 Interval history: Patient with a rather difficult night per family and herself. She is still coughing which is producing emesis. She is nauseated on top of that is still has no appetite not wanting to eat. She was pretty orthostaticly hypotensive with physical therapy yesterday. Had difficulty even getting to her feet became lightheaded and dizzy. Losartan was held in the evening Exam Vital Signs (past 8 hours): - 07/03/22 04:16 07/03/22 08:00 Temperature 96.6 F L 97.6 F Pulse Rate 72 69 Respiratory Rate 16 16 Blood Pressure 112/73 143/85 H Pulse Oximetry 95 97 Oxygen Flow Rate 0 Oxygen Delivery Method Room Air Oxygen Flow Rate 0 Objective Labs 07/03/22 05:03 07/03/22 05:03 Labs: Laboratory Results - last 24 hr 07/03/22 07/03/22 07/03/22 05:03 05:03 05:03 Hgb 12.6 Hct 38.4 PT 13.9 H D INR 1.2 Sodium 141 Potassium 3.6 Chloride 110 H Carbon Dioxide 23 BUN 14 Creatinine 0.90 Estimated GFR > 60 BUN/Creatinine Ratio 15.6 Glucose 89 Calcium 7.9 L PFSH Medical History Age-related cognitive decline Cardiac arrhythmia Chronic atrial fibrillation (10/13/12) Disc degeneration, lumbosacral Essential hypertension Fibrocystic disease of both breasts Hyperlipidemia Irritable bowel syndrome 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 Question GI bleed-patient's hemoglobin hematocrit have been stable. INR 1.2 this morning. I do not believe there is active GI bleeding at this time. I would wonder about the guaiac-positive stool being more related to the INR of 6+ rather than anything else. I am therefore going to restart her warfarin at a slightly lower dose. I wonder if the flecainide had interfered with her warfarin metabolism and drove her INR up. She would not actually had a protime done since starting that medication. 2. Respiratory-still coughing likely secondary sequelae of the RSV infection. She is not hypoxic no evidence of any active serious progressive pneumonia etcetera. I do not know that is anything more available to help her with her cough she is got Tessalon Perles available as well as guaifenesin and dextromethorphan. Continue with those treatments as necessary. Continue monitor for worsening respiratory symptoms hypoxia etcetera 3. GI-patient with persistent anorexia and nausea with emesis. Some of the emesis likely secondary to the coughing. The time course fits nicely for it to be related perhaps to the flecainide. That is a known side effect of flecainide and given all of the above I am going to go ahead and discontinue flecainide at this point and see if she improves. I am going to try placing her on m etoclopramide to see if we can promote some forward motility as well. 4. Cardiac-unclear to me why patient was placed on flecainide, she has chronic atrial fibrillation and why an attempt to cardiovert her prior to replacing her pacemaker is a bit mysterious to me. I think she is having more side effects and issues with the flecainide than having benefit in this point. I am going to discontinue it, therefore. 5. Question UTI-patient's urinalysis to me indicated probable persistent UTI ho wever specimen was not sent for culture given it was probably a dirty sample which I agree with. However I will continue her on the IV ampicillin for now but probably switch her to oral ampicillin/amoxicillin tomorrow. 6. Weakness-likely secondary to much of the above but hopefully more due to the flecainide that nausea and the lack of oral intake. If we can correct her GI issues I think she will begin to get better faster. Continue with physical therapy for now. Still anticipate she will be able to return home with home health services in the near term future Note: Greater than 30 minutes total time was spent on day of service, evaluating the patient on the floor, including examining the patient, discussing clinical course with clinical and nursing staff, reviewing clinical course in the computer, preparing documentation and writing orders for continued management of care, discussing status with family as appropriate, reviewing plans for the next 24 hours with both patient/family and nursing staff as appropriate. Quality VTE Deep Vein Thrombosis/Pulmonary Embolism Present on Admission: No
[2022-07-03] MEDS: METOCLOPRAMIDE HCL 5 MG TABLET PO ×3 (12:09→20:36)
--- NOTE | 2022-07-03 14:44 | PT.IPTN ---
Physical Therapy Treatment Note M2 PT-IP Current Condition Start: 07/02/22 11:05 Freq: NEEDED Status: Active Protocol: Document 07/02/22 09:30 AB (Rec: 07/02/22 11:15 AB [id number]) Physical Therapy Current Condition Current Condition Evaluation Date 07/02/22 Treatment Diagnosis RSV; GI bleed; difficulty in walking Onset Date 07/01/22 M3 PT-IP Subjective Start: 07/02/22 11:05 Freq: NEEDED Status: Active Protocol: Document 07/03/22 14:19 LJ (Rec: 07/03/22 14:44 LJ [id number]) Subjective Physical Therapy Visit Type Type Treatment Note Visit Start Time 13:56 Visit Stop Time 14:11 Total Visit Minutes 15 Notes Nursing exiting room as this therapist entering. Stated pt just got off the BSC and back to bed. Number of RELIEF WORKER Visits 1 Physical Therapy Visit Comments Patient Comments agreeable to do PT Therapy Pain Assessment Pain When Pain Assessed At Rest Pain Present Pain Present Denied Pain M4 PT-IP Mobility and Gait Start: 07/02/22 11:05 Freq: NEEDED Status: Active Protocol: Document 07/03/22 14:19 LJ (Rec: 07/03/22 14:44 LJ [id number]) PT-Bed Mobility Assessment Supine to Sit Supine to Sit Standby Assistance Sit to Supine Sit to Supine Standby Assistance Scooting Scooting to Edge of Bed Standby Assistance Scooting Up and Down in Bed Standby Assistance PT-Transfer Assessment Sit to and From Stand Sit to and from Stand Contact Guard Assistance,Use of Upper Extremities Equipment Transfer Assistive Device Gait Belt,Front Wheeled Walker Transfers Transfer Destination Bed,Bedside Commode Transfer Technique ambulated Transfer Ability Level of Assist Contact Guard Assistance Comments Mobility Comments Pt states she needs to use the BSC again urgently. Pt SBA for supine>sit>scoot to EOB. Donned gait belt and pt stood CGA and took 3 steps to BSC. Required assist with keeping FWW in front of her rather than leaving it and stepping to the BSC without it. Pt sat on BSC for several minutes stating dizziness abated. Pt unable to have BM. Pt stood CGA pushing off BSC and stood for ~15 sec stating she was dizzy again. pt then ambulated back to the bed ~3'. Pt stood at side of bed stated the dizziness was diminishing. Pt then sat on EOB for several seconds then stated she would like to lay down. Pt able to get back into bed independently. Pt resting reports dizziness abated a bit . Pt left in bed with all needs within reach and dtr in room. Spoke to nsg about dizziness and they are aware. Pt had no SOB, sign of weakness or fatigue, only dizziness. M5 PT-IP Objective Assessments Start: 07/02/22 11:05 Freq: NEEDED Status: Active Protocol: Document 07/02/22 09:30 AB (Rec: 07/02/22 11:15 AB [email or web address]) Orientation Orientation/Cognition Level of Alertness Alert Orientation Name,Place,Situation Memory Description Short Term Impaired Gross Range of Motion Lower Extremity ROM Assessment Within Functional Limits Strength Lower Extremity Strength Hip 4-/5 Knee 4-/5 Muscle Tone Muscle Tone WNL Yes M6 PT-IP Treatment Start: 07/02/22 11:05 Freq: NEEDED Status: Active Protocol: Document 07/03/22 14:19 LJ (Rec: 07/03/22 14:44 LJ [id number]) Physical Therapy Treatment Education Education Provided Safety M7 PT-IP Assessment and Plan Start: 07/02/22 11:05 Freq: NEEDED Status: Active Protocol: Document 07/03/22 14:19 LJ (Rec: 07/03/22 14:44 LJ [id number]) PT Summary Assessment and Plan Potential Rehabilitation Potential Fair Status of Condition at Evaluation Evolving Summary Impairments Pain,ROM,Strength,Balance, Coordination,Sensation,Tone, Cognition,Bed Mobility, Transfers,Gait,Activity Tolerance Assessment Summary Pt able to transfer to [facility] and appears strong enough to ambulate but dizziness is preventing activity. She states it resolves after being still for a short time but returns with transfers and position changes. Will continue to assess progress. Pt will have 24/ assist at home. CGT when appropriate. Goals Bed Mobility Goal Independent Transfer Goal Contact Guard Assistance,Front Wheeled Walker Gait Goal Contact Guard Assistance,Front Wheel Walker Gait Distance 100 Other Goals improve transfers and ambulation using FWW/4WW SBA 150 ft 4 steps 1 rail SBA Days to Meet Goals 10 Frequency of Treatment Frequency Of Treatment Once a Day Treatment Plan Physical Therapy Treatment Plan Bed Mobility Training,Transfer Training,Gait Training, Therapeutic Exercise,Balance Retraining,Discharge Planning, Hot or Cold Pack,Neuromuscular Re-ed,Coordination Retraining ,Manual Therapy Precautions Other Precautions falls; BP Recommendations To Nursing Amount of Assist Needed PT/OT Assist Only Discharge Recommendations PT Discharge Recommendations Home with 23/12 Assist Available,Home Health,SNF Rehab,Home vs SNF Equipment Needed for Home Before FWW if not safe with 4WW Discharge
[2022-07-03] MEDS: GUAIFENESIN/DM 200/20 MG/10 ML UDC PO ×2 (15:05→20:35)
[2022-07-03] MEDS: WARFARIN 5 MG TABLET 2.5 MG PO (16:15)
[2022-07-03] MEDS: ACETAMINOPHEN 325 MG TABLET 650 MG PO (16:16)
[2022-07-04] VITALS (9 sets, daily range): BP systolic 137–219; BP diastolic 74–99; PULSE 69–112; RESP 18; TEMP 36.3–36.9; O2SAT 93–97
[2022-07-04] MEDS: AMPICILLIN 1,000 MG in SODIUM CHLORIDE 0.9% 100 ML 200 MG IV (01:37)
[2022-07-04] MEDS: BENZONATATE 100 MG CAPSULE PO ×2 (03:57→15:08)
[2022-07-04] MEDS: GUAIFENESIN/DM 200/20 MG/10 ML UDC PO ×3 (06:06→17:45)
--- NOTE | 2022-07-04 07:50 | PM.PN.1 ---
Subjective Subjective Date Patient Seen: 07/04/22 Time Patient Seen: 07:50 Interval history: Patient is still lightheaded dizzy which is worse with standing although does dissipate if she stays still for minute 2. This is interfering with her ability to participate with physical therapy Says her cough maybe a little bit better Says her nausea maybe little bit better she expresses an appetite but per daughter still not eating and drinking unless prompted. Somewhat hypotensive with blood pressure 98/59 late last evening (much better this morning) Exam Vital Signs (past 8 hours): - 07/04/22 04:06 Temperature 98.5 F Pulse Rate 69 Respiratory Rate 18 Blood Pressure 137/79 Pulse Oximetry 97 Oxygen Flow Rate 0 Oxygen Delivery Method Room Air Oxygen Flow Rate 0 Objective Labs 07/03/22 05:03 07/03/22 05:03 [facility] Medical History Age-related cognitive decline Cardiac arrhythmia Chronic atrial fibrillation (10/13/12) Disc degeneration, lumbosacral Essential hypertension Fibrocystic disease of both breasts Hyperlipidemia Irritable bowel syndrome 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 GI bleed-this point no evidence of large volume GI bleeding. Warfarin has been restarted and plan to continue that for now. Continue monitor for evidence of bleeding but I would assume that the guaiac-positive stool was due to her elevated INR 2. Respiratory-continue to monitor for evidence of worsening pneumonia but at this point she seems stable 3. Nausea-maybe slightly better. Still I am hoping that the flecainide is the culprit here and without that in her system things will improve. I am also going to try and make sure she is adequately hydrated by giving her another L of IV fluids. This is in part because of her modest hypotension 4. Cardiac-continues to demonstrate some degree of mild orthostatic hypotension. I am going to reduce her dose metoprolol therefore. Perhaps being off flecainide will be of assistance here as well. As above also give a L of fluid to ensure she is adequately hydrated given her poor oral intake 5. Question UTI-I am going to switch patient to oral amoxicillin at this point. 6. Weakness-continues to struggle with positional dizziness. Hopefully with additional time perhaps off the flecainide, and with reduced dose metoprolol this will stabilize and she will be able to participate more with physical therapy Note: Greater than 30 minutes total time was spent on day of service, evaluating the patient on the floor, including examining the patient, discussing clinical course with clinical and nursing staff, reviewing clinical course in the computer, preparing documentation and writing orders for continued management of care, discussing status with family as appropriate, reviewing plans for the next 24 hours with both patient/family and nursing staff as appropriate. Quality VTE Deep Vein Thrombosis/Pulmonary Embolism Present on Admission: No
[2022-07-04] MEDS: METOCLOPRAMIDE HCL 5 MG TABLET PO ×2 (08:45→12:04)
[2022-07-04] MEDS: SODIUM CHLORIDE 0.9% 1,000 ML 100 ML IV (09:23)
[2022-07-04] MEDS: AMOXICILLIN 250 MG CAPSULE 500 MG PO ×2 (09:26→15:08)
[2022-07-04] MEDS: METOPROLOL IR 25 MG TABLET 12.5 MG PO (09:26)
--- NOTE | 2022-07-04 11:40 | PT.IPTN ---
Physical Therapy Treatment Note M2 PT-IP Current Condition Start: 07/02/22 11:05 Freq: NEEDED Status: Active Protocol: Document 07/04/22 11:15 SP (Rec: 07/04/22 20:18 SP [id number]) Physical Therapy Current Condition Current Condition Evaluation Date 07/02/22 Treatment Diagnosis RSV; GI bleed; difficulty in walking Onset Date 07/01/22 M3 PT-IP Subjective Start: 07/02/22 11:05 Freq: NEEDED Status: Active Protocol: Document 07/04/22 11:15 SP (Rec: 07/04/22 20:18 SP [id number]) Subjective Physical Therapy Visit Type Type Treatment Note Visit Start Time 11:15 Visit Stop Time 11:40 Total Visit Minutes 25 Notes Vitals hypertensive with mobility: supine: BP 151/80 HR 70 SaO2 mid 90s throughout tx. Seated: BP 219/99 HR 112 Supine: 168/74 HR 105 Number of HYBRID CORN BREEDER Visits 2 Physical Therapy Visit Comments Patient Comments agreeable to do PT Therapy Pain Assessment Pain When Pain Assessed During Mobility Pain Present Pain Present Denied Pain M4 PT-IP Mobility and Gait Start: 07/02/22 11:05 Freq: NEEDED Status: Active Protocol: Document 07/04/22 11:15 SP (Rec: 07/04/22 20:18 SP [id number]) PT-Bed Mobility Assessment Supine to Sit Supine to Sit Standby Assistance Sit to Supine Sit to Supine Contact Guard Assistance, Minimal Assistance,1 Person Assistance Scooting Scooting to Edge of Bed Standby Assistance PT-Transfer Assessment Comments Mobility Comments Pt completed HOB flat supine> sit, scoot to EOB CG/ SBA. While seated EOB reported feeling nausous and lightheaded. BP increased 219/ 99 HR 112. HYBRID CORN BREEDER assisted lateral scoot up toward HOB and CG/Min A return to supine trunk and LE support needed. Slight 30 deg elevation cued breath, BP see above improvement. HYBRID CORN BREEDER donned bed alarm and provided call light and all needs in reach. Notified nursing hypertensive. Will continue to assess progress tomorrow. Gait Assessment Comments Gait Comments Unable to due hypertensive sit EOB. Stair Climbing Assessment Comments Stair Climbing Comments Unable to due hypertensive sit EOB. Pt will need complete 4 stairs 1 HR (wide) to enter home. PT-Balance Assessment Sitting Balance and Reactions Static Sitting Balance Ability Fair Dynamic Sitting Balance Ability Poor M5 PT-IP Objective Assessments Start: 07/02/22 11:05 Freq: NEEDED Status: Active Protocol: Document 07/02/22 09:30 AB (Rec: 07/02/22 11:15 AB [id number]) Orientation Orientation/Cognition Level of Alertness Alert Orientation Name,Place,Situation Memory Description Short Term Impaired Gross Range of Motion Lower Extremity ROM Assessment Within Functional Limits Strength Lower Extremity Strength Hip 4-/5 Knee 4-/5 Muscle Tone Muscle Tone WNL Yes M6 PT-IP Treatment Start: 07/02/22 11:05 Freq: NEEDED Status: Active Protocol: Document 07/04/22 11:15 SP (Rec: 07/04/22 20:18 SP [id number]) Physical Therapy Treatment Education Education Provided Safety M7 PT-IP Assessment and Plan Start: 07/02/22 11:05 Freq: NEEDED Status: Active Protocol: Document 07/04/22 11:15 SP (Rec: 07/04/22 20:18 SP [id number]) PT Summary Assessment and Plan Potential Rehabilitation Potential Fair Status of Condition at Evaluation Evolving Summary Impairments Pain,ROM,Strength,Balance, Coordination,Sensation,Tone, Cognition,Bed Mobility, Transfers,Gait,Activity Tolerance Progress Towards Goals Slow Progress due to Medical Issues,Slow Progress due to Activity Tolerance Assessment Summary Pt hypertensive seated EOB post sup>sit CGA, CG/ Min A sit>supine. Recommending SNF vs HHPT 23/12 avail Goals Bed Mobility Goal Independent Transfer Goal Contact Guard Assistance,Front Wheeled Walker Gait Goal Contact Guard Assistance,Front Wheel Walker Gait Distance 100 Other Goals improve transfers and ambulation using FWW/4WW SBA 150 ft 4 steps 1 rail SBA Days to Meet Goals 10 Frequency of Treatment Frequency Of Treatment Once a Day Treatment Plan Physical Therapy Treatment Plan Bed Mobility Training,Transfer Training,Gait Training, Therapeutic Exercise,Balance Retraining,Discharge Planning, Hot or Cold Pack,Neuromuscular Re-ed,Coordination Retraining ,Manual Therapy Other Recommendations and Next Treatment check vitals, bed mob, Focus transfers, gait wFWW, stairs if safe and able. CGT if safe with daughter and able. Precautions Other Precautions falls; BP Recommendations To Nursing Amount of Assist Needed PT/OT Assist Only Discharge Recommendations PT Discharge Recommendations Home with 23/12 Assist Available,Home Health,SNF Rehab,Home vs SNF Equipment Needed for Home Before FWW if not safe with 4WW Discharge Transportation Needs at Discharge Private Vehicle,Wheelchair/ Cabulance
--- NOTE | 2022-07-04 13:43 | DI.RAD.S_ITS ---
PROCEDURE: XR ACUTE ABDOMEN SERIES INDICATIONS: abd pain TECHNIQUE: One view chest and two views of the abdomen were acquired. COMPARISON: [facility], , XR CHEST 2V, 07/01/2022, 13:17. [facility], , ABDOMEN ACUTE SERIES, 09/08/2009, 10:12. FINDINGS: Surgical changes and devices: Left pacemaker with right atrial and right ventricular leads. Cholecystectomy clips. Chest: Lungs are clear. Heart size is normal. No pleural effusions. No pneumoperitoneum. Abdomen: Scattered small bowel and colonic gas. No dilated loops of bowel seen. No suspicious calcifications. Visualized solid organ contours appear normal. Bones: No suspicious bony lesions. Scoliosis. IMPRESSION: No acute cardiopulmonary abnormality. Nonobstructive bowel gas pattern. If clinically indicated consider CT abdomen pelvis with IV contrast. Dictated by: Rinku Estes M.D. on 07/04/2022 at 14:51 Approved by: Rinku Estes M.D. on 07/04/2022 at 14:53
--- NOTE | 2022-07-04 16:43 | P.EN_ITS ---
Event Note Date Patient Seen: 07/04/22 Time Patient Seen: 13:45 Event Note (Rapid Response, Code, or fall): Called by nursing staff reporting patient is experiencing severe lower abdominal pain. This also associated with significant hypertension. I ordered abdominal films and went to see the patient. Patient was not experiencing severe abdominal pain when I saw her although she did admit to some discomfort. Daughter who is in the room with her been with her says the pain does come intermittently is kind of a crampy pain located below the umbilicus on both sides. On exam she is nontender nondistended Acute film imaging demonstrated normal gas pattern without evidence of ob struction or anything more serious. Patient is clearly not obstipated based on exam and x-ray and the fact that she had a normal bowel movement yesterday Therefore unclear as to the etiology of her symptoms. Will go ahead and do some chemistries as well as CBC tomorrow. Consider CT scan if symptoms persist or has additional symptoms Blood pressure improved once her abdominal pain seemed to subside some.
[2022-07-04] MEDS: ONDANSETRON 4 MG/2 ML INJ IV (18:03)
--- NOTE | 2022-07-04 18:06 | PC.NURSE ---
Pt is A&Ox2, SBP more elevated today. She has a purewick in place for incontinence during frequent coughing episodes. She has course lungsounds through out with constant weak productive cough. Sputum is clear. She states that due to coughing so much she feels nauseated and is unable to eat/drink more than some sips of a shake /applesauce and sips of water throughout the day. Yesterday she had been getting up to the bsc for each void. Today PT attempted to sit up and stand with patient and her SBP continued to raise. (Pt had previously been hypotensive prior to yesterday and BP meds were lowered) She contnues to c/o of lower abdomen cramping, burning with urinating, nausea and persistent productive cough despite prn mucinex and tessalon perles capsules prn. She states I've never felt so sick in my life Daugters and caregiver are very supportive and helpful at bedside this evening.
[2022-07-05] MEDS: BENZONATATE 100 MG CAPSULE PO ×2 (05:29→19:03)
[2022-07-05] MEDS: GUAIFENESIN/DM 200/20 MG/10 ML UDC PO ×2 (05:29→13:51)
[2022-07-05] MEDS: ONDANSETRON 4 MG/2 ML INJ IV ×2 (05:29→13:38)
[2022-07-05 05:40] VITALS: BP 134/82; PULSE 71; RESP 18; TEMP 36.1; O2SAT 93
[2022-07-05 05:52] LABS: INR 1.2 (0.9-1.3); Prothrombin Time 14.3 SECONDS (10.1-12.7)
[2022-07-05 05:55] LABS: Add Manual Diff / Slide Review NO; Basophils Absolute Auto 100 /uL (0-100); Basophils Percent Auto 1.1 % (0-2); Eosinophils Absolute Auto 100 /uL (0-450); Eosinophils Percent Auto 1.3 % (2-4); Hemoglobin 13.2 g/dL (12.0-16.0); Lymphocytes Absolute Auto 1200 /uL (1100-4500); Lymphocytes Percent Auto 21.9 % (25-40); Mean Corpuscular HGB Conc 33.1 % (30-36); Mean Corpuscular Hemoglobin 29.3 PG (26-34); Mean Corpuscular Volume 88.4 fL (80-100); Monocytes Absolute Auto 600 /uL (0-900); Monocytes Percent Auto 11.4 % (3-14); Neutrophils Absolute Auto 3500 /uL (1500-7000); Neutrophils Percent Auto 64.3 % (50-75); Platelet Count 168 X10^3/uL (150-400); Red Blood Cell Count 4.52 X10^6/uL (4.0-5.2); Red Cell Distribution Width 13.4 % (11.6-14.8); White Blood Cell Count 5.4 X10^3/uL (4.5-11.0)
[2022-07-05 05:58] LABS: Alanine Aminotransferase 81 IU/L (<35); Albumin 3.4 g/dL (3.5-5.0); Albumin Globulin Ratio 1.1 (1.0-2.8); Alkaline Phosphatase 59 U/L (38-126); Aspartate Aminotransferase 63 IU/L (14-36); BUN Creatinine Ratio 6.9 (6-22); Bilirubin Total 1.2 mg/dL (0.2-1.3); Bilirubin Unconjugated 0.7 mg/dL (0.0-1.1); Blood Urea Nitrogen 6 mg/dL (7-17); Calcium 8.1 mg/dL (8.4-10.2); Carbon Dioxide 28 mmol/L (22-32); Chloride 105 mmol/L (98-107); Estimated Glomerular Filt Rate > 60 mL/min (>60); Glucose 99 mg/dL (80-110); HEMOLYSIS < 15 (0-50); Potassium 3.1 mmol/L (3.4-5.1); Sodium 140 mmol/L (137-145); Total Protein 6.4 g/dL (6.3-8.2)
[2022-07-05 07:00] VITALS: O2SAT 94
--- NOTE | 2022-07-05 07:14 | PM.PN.1 ---
Subjective Subjective Date Patient Seen: 07/05/22 Time Patient Seen: 07:14 Interval history: Patient is still gets dizzy when she sits up with the other bed and has declined any further physical therapy beyond that No recurrence of this severe abdominal pain she was experiencing yesterday. However still very limited appetite does not really want to get up out of bed or do anything. Coughing was somewhat worse yesterday afternoon. Nausea also present. Still not eating well at all. Blood pressure was on the high side when she was experiencing abdominal pain came back down to a more normal for her range. She is not been hypotensive and we have not demonstrated orthostasis in her This morning she denies any real active abdominal pain. She just is lying in bed and does not seem to have any motivation to get up out of bed does not seem to have any appetite etcetera Lab work done this morning is essentially unremarkable. CBC unremarkable chemistries unremarkable except for potassium of 3.1 Exam Vital Signs (past 8 hours): - 07/05/22 05:40 Temperature 96.9 F L Pulse Rate 71 Respiratory Rate 18 Blood Pressure 134/82 Pulse Oximetry 93 Oxygen Flow Rate 0 Oxygen Delivery Method Room Air Oxygen Flow Rate 0 Objective Labs 07/05/22 05:07 07/05/22 05:07 Labs: Laboratory Results - last 24 hr 07/05/22 07/05/22 07/05/22 05:07 05:07 05:07 WBC 5.4 RBC 4.52 Hgb 13.2 Hct 40.0 MCV 88.4 MCH 29.3 MCHC 33.1 RDW 13.4 Plt Count 168 Neut % (Auto) 64.3 Lymph % (Auto) 21.9 L [place] % (Auto) 11.4 Eos % (Auto) 1.3 L Baso % (Auto) 1.1 Neut # (Auto) 3500 Lymph # (Auto) 1200 [place] # (Auto) 600 Eos # (Auto) 100 Baso # (Auto) 100 PT 14.3 H INR 1.2 Sodium 140 Potassium 3.1 L Chloride 105 Carbon Dioxide 28 BUN 6 L Creatinine 0.87 Estimated GFR > 60 BUN/Creatinine Ratio 6.9 Glucose 99 Calcium 8.1 L Total Bilirubin 1.2 Conjugated Bilirubin 0.0 Unconjugated Bilirubin 0.7 AST 63 H ALT 81 H Alkaline Phosphatase 59 Total Protein 6.4 Albumin 3.4 L Globulin 3.0 Albumin/Globulin Ratio 1.1 [facility] Medical History Age-related cognitive decline Cardiac arrhythmia Chronic atrial fibrillation (10/13/12) Disc degeneration, lumbosacral Essential hypertension Fibrocystic disease of both breasts Hyperlipidemia Irritable bowel syndrome 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 GI bleed-not an active issue. Patient continues on warfarin 2. Respiratory-continue to monitor for evidence of worsening pneumonia but at this point she seems stable, no hypoxia cough waxes and wanes likely a sequelae of her RSV 3. Nausea-persists and waxes and wanes. No clear etiology for this at this point. Again I am wondering if it is related to the flecainide and if so may well take another several days to completely resolve as that drug eliminates from her system. Given her abdominal pain yesterday and her persistent nausea with lack of improvement over the last several days I think it would be appropriate to obtain CT scan of her abdomen and pelvis looking for some abnormality that might explain the symptoms which are thus far otherwise unexplained. Low index of suspicion for any serious issue but again patient really quite stagnant with her recovery not improving and there is really no other therapeutic option. She continues on 2 different antiemetics she has had normal bowel movements she is got normal lab work etcetera. CT scan has now been performed and does not demonstrate any abnormalities whatsoever. She has diverticular disease without evidence of diverticulitis normal bowel caliber no hepatic renal abnormalities etcetera. Therefore still no clear etiology for ongoing GI symptoms. I suppose this could be a neurologic based set of symptoms and am considering advanced imaging of her INSERTER PROMOTIONAL ITEM as well. 4. Cardiac-patient does not have any evidence of hypotension at this point in fact was somewhat hypertensive yesterday. I am not going to further increase her antihypertensive therapy continue with current meds. 5. Question UTI-patient continues on oral amoxicillin 6. Weakness-continues to struggle with positional dizziness. Not at all clear why patient persists with the symptoms at this time. I have asked her to try and push through the dizziness a little bit as perhaps that is more due to her just lying in bed in being super inactive for the last several days if not weeks. She is also nutritionally quite challenged and that maybe playing a role with her overall sense of fatigue dizziness etcetera. Ultimately I think we need to work to get her eating more drinking more and more physically active which may stimulate more of an appetite as well and I think that process will begin to improve her all the way around. 7. Hypokalemia-uncertain as to etiology at this point. She did receive some IV fluids yesterday. Will replace with oral potassium today and plan to recheck tomorrow with magnesium as well. Note: Greater than 30 minutes total time was spent on day of service, evaluating the patient on the floor, including examining the patient, discussing clinical course with clinical and nursing staff, reviewing clinical course in the computer, preparing documentation and writing orders for continued management of care, discussing status with family as appropriate, reviewing plans for the next 24 hours with both patient/family and nursing staff as appropriate. Quality VTE Deep Vein Thrombosis/Pulmonary Embolism Present on Admission: No
--- NOTE | 2022-07-05 08:33 | DI.CT.S_ITS ---
PROCEDURE: CT ABDOMEN PELVIS W CON INDICATIONS: nausea/abd pain/pelvic pain TECHNIQUE: After the administration of intravenous contrast, axial sections acquired from the lung bases to the pubic symphysis. Coronal and sagittal reformats were performed. For radiation dose reduction, the following was used: automated exposure control, adjustment of mA and/or kV according to patient size. COMPARISON: [facility], CT, ABDOMEN/PELVIS WITH CONTRAST, 05/29/2012, 14:27. FINDINGS: Image quality: Excellent. Lung bases: Lung bases are clear. Heart size is normal. There is a small right pleural effusion. Solid organs: Liver: The liver has no mass or intrahepatic biliary ductal dilatation. The portal vein and hepatic veins are patent. Biliary: Status post cholecystectomy. Pancreas: The pancreas has no mass or ductal dilatation. There is no surrounding inflammation. Spleen: Normal size. There are no masses. Adrenals: No hypertrophy or nodules. Kidneys: No obstructive calculus or hydronephrosis. No solid mass. No cystic mass. Peritoneum and bowel: The distal esophagus and stomach are normal. The small bowel has a normal caliber and appearance. The terminal ileum is normal. Large bowel has diverticulosis without evidence of diverticulitis. The appendix is normal. No free fluid or air. Nodes and vessels: No retroperitoneal or mesenteric adenopathy by size criteria. The aorta has atherosclerosis with no aneurysmal dilatation. Miscellaneous: No abdominal wall mass or hernia. PELVIS: Genitourinary: The bladder has no wall thickening or mass. No bladder calcifications. Bones: Degenerative changes with no focal abnormality. Multilevel disc disease with dextroscoliosis of the lumbar spine. No vertebral body compression fractures. IMPRESSION: 1. No acute abdominal or pelvic abnormality. 2. Diverticulosis without evidence of diverticulitis. Dictated by: Cholo Santo M.D. on 07/05/2022 at 9:15 Approved by: Cholo Santo M.D. on 07/05/2022 at 9:23
--- NOTE | 2022-07-05 09:27 | CM.DPC ---
DCP Cont: Met with patient's daughter, Sabrina. She indicated, she really does not want her mother to go to a skilled facility, she would not do well, would rather that she go home. Patient resides with daughter here in [place]. 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 Patient also has [facility]. [facility] has been ordered, and daughter is updated. She also indicated she can increase [facility] if needed. Patient had been walking independently, but currently, daughter indicated, she has not been walking well due to dizziness. She did mention possible hospice in the near future, if she continues to not eat. Daughter has mentioned the possibility of patient needing a hospital bed. P: DCP to continue to follow. At this time, plan is home with [facility], and [facility] when stable. Kaykay Flowers RN/Music Rehabilitation Therapist
[2022-07-05] MEDS: AMOXICILLIN 250 MG CAPSULE 500 MG PO ×3 (09:59→21:58)
[2022-07-05] MEDS: POTASSIUM CHLORIDE 20 MEQ TAB 40 MEQ PO ×3 (09:59→15:40)
[2022-07-05] MEDS: METOPROLOL IR 25 MG TABLET 12.5 MG PO ×2 (10:00→21:58)
[2022-07-05] MEDS: METOCLOPRAMIDE HCL 5 MG TABLET PO ×4 (10:00→21:58)
--- NOTE | 2022-07-05 11:30 | DIET.PN1 ---
Dietary Progress Note Assessment: 86 y/o with admission chief complaint of RSV diagnosis and not eating/diarrhea/nausea. RD review of this patient after screening for poor PO. No consult placed at this time. Per provider notes, pt continues to have very limited appetite and is nutritionally quite challenged. RD spoke with Sabrina, Ange's daughter whom she lives with. Sabrina reports poor PO since diagnosis r/t mostly to nausea x 2+ weeks as a result of RSV diagnosed on 06/19. Per EMR wt hx Ange has lost 6.1% of BW over 2 weeks (severe). Diet Recall indicates <50% EER for over 9 days (severe). Sabrina reports notable continued decrease in appetite since admission. PO of 0-25% in EMR. Diet recall: B: 4oz pedialyte and 2 bites of banana L: 1/4 sandwich with water or pedialyte D: 2 bites of meal Sabrina makes Sn: sometimes saltine crackers or a few bites of apple sauce Ht: 167.64 cm Wt: 66 kg BMI: 23.5 Last BM: 07/02/22 (07/02/22 22:50) MNA: 12 Leonel Score: 18 Diet: 07/01/22 Breakfast Heart Healthy Diet Diet Modifications: Nutrition Percent Meal Consumed 5 07/04/22 08:35 Labs: RBC 4.52 X10^6/uL (4.0-5.2) 07/05/22 05:07 Hgb 13.2 g/dL (12.0-16.0) 07/05/22 05:07 Hct 40.0 % (36-46) 07/05/22 05:07 Creatinine 0.87 mg/dL (0.52-1.04) 07/05/22 05:07 Lactate 1.7 mmol/L (0.7-2.1) 07/01/22 12:30 Nutrition Diagnosis: Acute severe protein calorie malnutrition r/t nausea from RSV per report aeb <50% EER for over 2 weeks, nauseas for over 2 weeks, severe weight loss of 6.1% in 2 weeks, documented PO <50% since admission. -The patient is at much higher risk for medical and surgical complications because of his malnutrition.? This increases the difficulty and complexity of medical and surgical interventions and increases the chances of poor outcomes such as morbidity and mortality. Interventions: 1. High kcal ONS BID to support kcal and protein needs 2. Discussed options on the menu with daughter for meals Ange rm enjoy EER: 1650-1850kcals (25-28kcal/kg per BMI) 99-130g PRO (1.5-2g/kg per malnutrition) Monitoring/Evaluations: ONS tolerance, weight, PO, RD f/u in three days Electronically Signed by: Libby Simpson 07/05/22 11:30 Clinical Dietitian [address] [id number]
[2022-07-05 12:26] VITALS: BP 118/65; PULSE 75; RESP 18; TEMP 36.2; O2SAT 97
[2022-07-05] MEDS: predniSONE 20 MG TABLET PO (15:40)
--- NOTE | 2022-07-05 17:29 | PT.IPTN ---
Physical Therapy Treatment Note M2 PT-IP Current Condition Start: 07/02/22 11:05 Freq: NEEDED Status: Active Protocol: Document 07/04/22 11:15 SP (Rec: 07/04/22 20:18 SP [id number]) Physical Therapy Current Condition Current Condition Evaluation Date 07/02/22 Treatment Diagnosis RSV; GI bleed; difficulty in walking Onset Date 07/01/22 M3 PT-IP Subjective Start: 07/02/22 11:05 Freq: NEEDED Status: Active Protocol: Document 07/05/22 17:11 LJ (Rec: 07/05/22 17:29 LJ [id number]) Subjective Physical Therapy Visit Type Type Treatment Note Visit Start Time 14:23 Visit Stop Time 14:49 Total Visit Minutes 26 Notes Vitals: supine-119/71 post mobility supine-134/71 seated-120/75 standing-109/56 during mobility-111/61 Physical Therapy Visit Comments Patient Comments Agreeable to do PT. States dizziness slightly less today and nausea gone Therapy Pain Assessment Pain When Pain Assessed During Mobility Pain Present Pain Present Denied Pain M4 PT-IP Mobility and Gait Start: 07/02/22 11:05 Freq: NEEDED Status: Active Protocol: Document 07/05/22 17:11 LJ (Rec: 07/05/22 17:29 LJ [id number]) PT-Bed Mobility Assessment Supine to Sit Supine to Sit Standby Assistance Sit to Supine Sit to Supine Standby Assistance Scooting Scooting to Edge of Bed Standby Assistance PT-Transfer Assessment Sit to and From Stand Sit to and from Stand Contact Guard Assistance,Use of Upper Extremities Equipment Transfer Assistive Device Gait Belt,Front Wheeled Walker Transfers Transfer Destination Bed Transfer Ability Level of Assist Contact Guard Assistance Comments Mobility Comments BP remained stable throughout treatment session with slight elevation consistent with activity end of session. Pt SBA for all bed mobility. Requires cues for positioning. Gait Assessment Gait Gait Assistance Required: Contact Guard Assist Distance (Feet) 100 Assistive Devices Assistive Device Gait Belt,Front Wheeled Walker Gait Deviations General Gait Pattern Decreased Stride Length, Decreased Feet Clearance, Flexed Trunk,Narrow Based Gait Factors Limiting Gait Function Factors Limiting Gait Function Decreased Activity Tolerance, Decreased Strength,Limited Range of Motion,Poor Balance, Poor Safety Awareness Comments Gait Comments Pt ambulated 3 separate times in room. First 2 tmes from edge of bed to foot, around in [place], then back to side of bed to sit and take BP. Third time to window seat and back to side of bed closest to door . Pt able to maintain steady gait and follow directions well. No fatigue or SOB. Cues for standing tall and looking forward. BP during ambulation reamined steady. At end of session pt able to get herself back into bed SBA and cues for positioning. BP elevated slightly after ambulation consistent with levle of exertion. Pt did not c/o dizziness during activity but stated slightly dizzy when asked. M5 PT-IP Objective Assessments Start: 07/02/22 11:05 Freq: NEEDED Status: Active Protocol: Document 07/02/22 09:30 AB (Rec: 07/02/22 11:15 AB [id number]) Orientation Orientation/Cognition Level of Alertness Alert Orientation Name,Place,Situation Memory Description Short Term Impaired Gross Range of Motion Lower Extremity ROM Assessment Within Functional Limits Strength Lower Extremity Strength Hip 4-/5 Knee 4-/5 Muscle Tone Muscle Tone WNL Yes M6 PT-IP Treatment Start: 07/02/22 11:05 Freq: NEEDED Status: Active Protocol: Document 07/05/22 17:11 LJ (Rec: 07/05/22 17:29 LJ [id number]) Physical Therapy Treatment Education Education Provided Safety M7 PT-IP Assessment and Plan Start: 07/02/22 11:05 Freq: NEEDED Status: Active Protocol: Document 07/05/22 17:11 LJ (Rec: 07/05/22 17:29 LJ [id number]) PT Summary Assessment and Plan Potential Rehabilitation Potential Fair Status of Condition at Evaluation Evolving Summary Impairments Pain,ROM,Strength,Balance, Coordination,Sensation,Tone, Cognition,Bed Mobility, Transfers,Gait,Activity Tolerance Progress Towards Goals Slow Progress due to Medical Issues,Slow Progress due to Activity Tolerance Assessment Summary Pt improved with ability to ambulate in room. Lessening dizziness and stable BP allow for greater activity tolerance . Pt made comfortable in bed, given all needs within reach and dtr with her. Goals Bed Mobility Goal Independent Transfer Goal Contact Guard Assistance,Front Wheeled Walker Gait Goal Contact Guard Assistance,Front Wheel Walker Gait Distance 100 Other Goals improve transfers and ambulation using FWW/4WW SBA 150 ft 4 steps 1 rail SBA Days to Meet Goals 10 Frequency of Treatment Frequency Of Treatment Once a Day Treatment Plan Physical Therapy Treatment Plan Bed Mobility Training,Transfer Training,Gait Training, Therapeutic Exercise,Balance Retraining,Discharge Planning, Hot or Cold Pack,Neuromuscular Re-ed,Coordination Retraining ,Manual Therapy Other Recommendations and Next Treatment check vitals, progress gait Focus wFWW, stairs if safe and able. CGT if safe with daughter and able. Precautions Other Precautions falls; BP Recommendations To Nursing Amount of Assist Needed 1 Person Assist Discharge Recommendations PT Discharge Recommendations Home with 24/ Assist Available,Home Health,SNF Rehab,Home vs SNF Equipment Needed for Home Before FWW if not safe with 4WW Discharge Transportation Needs at Discharge Private Vehicle,Wheelchair/ Cabulance
[2022-07-05] MEDS: WARFARIN 5 MG TABLET 2.5 MG PO (19:05)
[2022-07-05 20:00] VITALS: BP 112/65; PULSE 90; RESP 20; TEMP 37; O2SAT 95; O2SAT 96
[2022-07-06] VITALS (8 sets, daily range): BP systolic 93–140; BP diastolic 55–83; PULSE 68–82; RESP 16–18; TEMP 36.2–36.8; O2SAT 94–96
--- NOTE | 2022-07-06 00:03 | PC.NURSE ---
When I went into PT's rm at start of shift the daughter asked if I could only come in this time and then stay out of room for rest of night so my mom can sleep. I explained Q4 vitals and Q2 turn but she still rf for pt and asked to let her get sleep.
[2022-07-06 05:44] LABS: BUN Creatinine Ratio 7.4 (6-22); Blood Urea Nitrogen 7 mg/dL (7-17); Calcium 8.7 mg/dL (8.4-10.2); Carbon Dioxide 28 mmol/L (22-32); Chloride 105 mmol/L (98-107); Estimated Glomerular Filt Rate 59 mL/min (>60); Glucose 118 mg/dL (80-110); HEMOLYSIS < 15 (0-50); Magnesium 1.7 mg/dL (1.6-2.3); Potassium 4.4 mmol/L (3.4-5.1); Sodium 138 mmol/L (137-145)
[2022-07-06] MEDS: AMOXICILLIN 250 MG CAPSULE 500 MG PO ×3 (10:12→20:55)
[2022-07-06] MEDS: BENZONATATE 100 MG CAPSULE PO (10:12)
[2022-07-06] MEDS: predniSONE 20 MG TABLET PO (10:12)
[2022-07-06] MEDS: METOCLOPRAMIDE HCL 5 MG TABLET PO ×4 (10:13→20:55)
[2022-07-06] MEDS: METOPROLOL IR 25 MG TABLET 12.5 MG PO ×2 (10:13→20:55)
--- NOTE | 2022-07-06 10:39 | P.PN_ITS ---
Subjective Subjective Date Patient Seen: 07/06/22 Time Patient Seen: 10:39 Interval history: Patient reports maybe feeling slightly better. Daughter is much more optimistic saying she ate breakfast did much better. Spent some time up in a chair yesterday walked a little bit with physical therapy. Still dizzy with change in position but improved. I had a CT scan of the abdomen performed yesterday to rule out any intra- abdominal pathology that could be contributing to her persistent nausea as well as the intermittent abdominal pain. Was essentially normal I added prednisone thinking perhaps some element of reactive airways leftover from her RSV infection might be causing persistent cough and hoping to stimulate appetite with the prednisone as well. Maybe that is had an affect Course she continues off the flecainide which I think was a contributing factor here, certainly the time course fits with that fairly well Exam Vital Signs (past 8 hours): - 07/06/22 05:23 07/06/22 08:45 Temperature 98.3 F 97.8 F Pulse Rate 82 73 Respiratory Rate 16 16 Blood Pressure 132/77 136/83 Pulse Oximetry 95 96 Oxygen Flow Rate 0 Oxygen Delivery Method Room Air Oxygen Flow Rate 0 Objective Labs 07/05/22 05:07 07/06/22 04:53 Labs: Laboratory Results - last 24 hr 07/06/22 04:53 Sodium 138 Potassium 4.4 D Chloride 105 Carbon Dioxide 28 BUN 7 Creatinine 0.94 Estimated GFR 59 L BUN/Creatinine Ratio 7.4 Glucose 118 H Calcium 8.7 Magnesium 1.7 PFSH Medical History Age-related cognitive decline Cardiac arrhythmia Chronic atrial fibrillation (10/13/12) Disc degeneration, lumbosacral Essential hypertension Fibrocystic disease of both breasts Hyperlipidemia Irritable bowel syndrome 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 GI bleed-not an active issue. Patient continues on warfarin 2. Respiratory-continue to monitor for evidence of worsening pneumonia but at this point she seems stable, no hypoxia cough waxes and wanes likely a sequelae of her RSV. Prednisone initiated thinking perhaps cough was a reactive airways related to the RSV. Unsure at this point whether that has been helpful but continue for now 3. Nausea-persistent but perhaps slightly improved. Appetite better as well. CT scan as noted previously unremarkable. Perhaps prednisone perhaps just time perhaps more time away from flecainide has made her better. Hopefully this trend continues and if so she would likely be ready for discharge in the next couple of days 4. Cardiac-blood pressure okay for now 5. Question UTI-patient continues on oral amoxicillin. Plan to complete 1 week's duration antibiotic so will be able to discontinue after dosing on the 07 of July 6. Weakness-patient did better yesterday with physical therapy able to sit up in a chair. The nausea and dizziness seem better. Hopefully this is a trend that will continue 7. Hypokalemia-potassium this morning normal and much improved. 8. Disposition-patient hopefully is trending in an improved direction and this will continue and she will be a candidate for discharge home probably with home health services sometime in the next 24-48 hours. Quality VTE Deep Vein Thrombosis/Pulmonary Embolism Present on Admission: No
[2022-07-06] MEDS: MAGNESIUM CHLORIDE 64 MG TABLET 128 MG PO (13:12)
[2022-07-06] MEDS: POTASSIUM CHLORIDE 20 MEQ TAB 40 MEQ PO (13:13)
[2022-07-06] MEDS: ACETAMINOPHEN 325 MG TABLET 650 MG PO (13:18)
--- NOTE | 2022-07-06 14:09 | PT.IPTN ---
Current Diagnoses Dehydration (07/05/22) Physical Therapy Treatment Note M2 PT-IP Current Condition Start: 07/02/22 11:05 Freq: NEEDED Status: Active Protocol: Document 07/04/22 11:15 SP (Rec: 07/04/22 20:18 SP [id number]) Physical Therapy Current Condition Current Condition Evaluation Date 07/02/22 Treatment Diagnosis RSV; GI bleed; difficulty in walking Onset Date 07/01/22 M3 PT-IP Subjective Start: 07/02/22 11:05 Freq: NEEDED Status: Active Protocol: Document 07/06/22 13:51 LJ (Rec: 07/06/22 14:09 LJ [id number]) Subjective Physical Therapy Visit Type Type Treatment Note Visit Start Time 12:28 Visit Stop Time 12:51 Total Visit Minutes 23 Physical Therapy Visit Comments Patient Comments Pt agreeable to do PT. States dizziness is less today. Therapy Pain Assessment Pain When Pain Assessed During Mobility Pain Present Pain Present Denied Pain M4 PT-IP Mobility and Gait Start: 07/02/22 11:05 Freq: NEEDED Status: Active Protocol: Document 07/06/22 13:51 LJ (Rec: 07/06/22 14:09 LJ [id number]) PT-Bed Mobility Assessment Supine to Sit Supine to Sit Standby Assistance Sit to Supine Sit to Supine Standby Assistance Scooting Scooting to Edge of Bed Standby Assistance Scooting Up and Down in Bed Standby Assistance PT-Transfer Assessment Sit to and From Stand Sit to and from Stand Contact Guard Assistance,Use of Upper Extremities Equipment Transfer Assistive Device Gait Belt,Front Wheeled Walker Transfers Transfer Destination Bed Transfer Ability Level of Assist Contact Guard Assistance Comments Mobility Comments Vitals taken supine, sitting up in bed, sitting at edge of bed, standing, and post mobility. Little fluctuation throughout treatment session. Pt SBA with bed mobility and CGA with ambulation. Gait Assessment Gait Gait Assistance Required: Contact Guard Assist Distance (Feet) 130 Assistive Devices Assistive Device Gait Belt,Front Wheeled Walker Gait Deviations General Gait Pattern Decreased Stride Length, Decreased Feet Clearance, Flexed Trunk,Narrow Based Gait Factors Limiting Gait Function Factors Limiting Gait Function Decreased Activity Tolerance, Decreased Strength,Limited Range of Motion,Poor Balance, Poor Safety Awareness Comments Gait Comments Pt ambulated in hallway and back to room for a total of ~ 130'. CGA and cues for erect posture and proximity to FWW. Pt c/o dizziness half way through ambulation but showed no LOB or distress. Pt ambulated back to room ad sat on side of bed. BP in 112/62 within range of previous numbers. Pt requested to lay down in bed. BP taken was very close to seated BP. Pt was made comfortable in bed and given all neews within reach. Left in room with daughter. Stair Climbing Assessment Comments Stair Climbing Comments Not assessed yet. Pt has 4 stairs with 1 wide handrail to enter home M5 PT-IP Objective Assessments Start: 07/02/22 11:05 Freq: NEEDED Status: Active Protocol: Document 07/02/22 09:30 AB (Rec: 07/02/22 11:15 AB [id number]) Orientation Orientation/Cognition Level of Alertness Alert Orientation Name,Place,Situation Memory Description Short Term Impaired Gross Range of Motion Lower Extremity ROM Assessment Within Functional Limits Strength Lower Extremity Strength Hip 4-/5 Knee 4-/5 Muscle Tone Muscle Tone WNL Yes M6 PT-IP Treatment Start: 07/02/22 11:05 Freq: NEEDED Status: Active Protocol: Document 07/06/22 13:51 LJ (Rec: 07/06/22 14:09 LJ [id number]) Physical Therapy Treatment Education Education Provided Safety M7 PT-IP Assessment and Plan Start: 07/02/22 11:05 Freq: NEEDED Status: Active Protocol: Document 07/06/22 13:51 LJ (Rec: 07/06/22 14:09 LJ [id number]) PT Summary Assessment and Plan Potential Rehabilitation Potential Fair Status of Condition at Evaluation Evolving Summary Impairments Pain,ROM,Strength,Balance, Coordination,Sensation,Tone, Cognition,Bed Mobility, Transfers,Gait,Activity Tolerance Progress Towards Goals Slow Progress due to Medical Issues,Slow Progress due to Activity Tolerance Assessment Summary Pt able to ambulate increased distance without rest break. Cues for FWW management and posture. BP remained stable throughout session in all positions whether laying, sitting, or ambulating. Pt will need to demonstrate safety on stairs prior to DC. Goals Bed Mobility Goal Independent Transfer Goal Contact Guard Assistance,Front Wheeled Walker Gait Goal Contact Guard Assistance,Front Wheel Walker Gait Distance 100 Other Goals improve transfers and ambulation using FWW/4WW SBA 150 ft 4 steps 1 rail SBA Days to Meet Goals 10 Frequency of Treatment Frequency Of Treatment Once a Day Treatment Plan Physical Therapy Treatment Plan Bed Mobility Training,Transfer Training,Gait Training, Therapeutic Exercise,Balance Retraining,Discharge Planning, Hot or Cold Pack,Neuromuscular Re-ed,Coordination Retraining ,Manual Therapy Other Recommendations and Next Treatment check vitals, progress gait Focus wFWW, stairs if safe and able. CGT if safe with daughter and able. Precautions Other Precautions falls; BP Recommendations To Nursing Amount of Assist Needed 1 Person Assist Discharge Recommendations PT Discharge Recommendations Home with 24/ Assist Available,Home Health,SNF Rehab,Home vs SNF Equipment Needed for Home Before FWW if not safe with 4WW Discharge Transportation Needs at Discharge Private Vehicle,Wheelchair/ Cabulance
[2022-07-06] MEDS: ONDANSETRON 4 MG ODT SL (14:59)
[2022-07-06] MEDS: WARFARIN 5 MG TABLET 2.5 MG PO (18:11)
[2022-07-07] VITALS (7 sets, daily range): BP systolic 122–137; BP diastolic 73–84; PULSE 71–87; RESP 16–18; TEMP 36–36.7; O2SAT 93–96
[2022-07-07 05:56] LABS: INR 1.3 (0.9-1.3); Prothrombin Time 14.7 SECONDS (10.1-12.7)
[2022-07-07] MEDS: METOCLOPRAMIDE HCL 5 MG TABLET PO ×4 (08:15→21:00)
[2022-07-07] MEDS: AMOXICILLIN 250 MG CAPSULE 500 MG PO ×3 (08:15→20:49)
[2022-07-07] MEDS: predniSONE 20 MG TABLET PO (08:15)
[2022-07-07] MEDS: METOPROLOL IR 25 MG TABLET 12.5 MG PO ×2 (08:15→20:50)
--- NOTE | 2022-07-07 11:03 | P.PN_ITS ---
Subjective Subjective Date Patient Seen: 07/07/22 Time Patient Seen: 11:03 Interval history: Patient did not do as well yesterday she did on Friday. Still had very limited oral intake. Was up with physical therapy and did better with physical therapy anyway. This morning I find her curled up in bed with the room dark as usual. No new complaints. No respiratory issues etcetera. Exam Vital Signs (past 8 hours): - 07/07/22 05:00 07/07/22 08:27 07/07/22 08:49 Temperature 98.1 F 97.1 F L Pulse Rate 73 71 Respiratory Rate 18 18 Blood Pressure 136/76 137/73 Pulse Oximetry 93 93 96 Oxygen Delivery Method Room Air Oxygen Flow Rate 0 0 Oxygen Delivery Method Room Air Oxygen Flow Rate 0 Objective Labs 07/05/22 05:07 07/06/22 04:53 Labs: Laboratory Results - last 24 hr 07/07/22 04:55 PT 14.7 H INR 1.3 PFSH Medical History Age-related cognitive decline Cardiac arrhythmia Chronic atrial fibrillation (10/13/12) Disc degeneration, lumbosacral Essential hypertension Fibrocystic disease of both breasts Hyperlipidemia Irritable bowel syndrome 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 GI bleed-not an active issue. Patient continues on warfarin 2. Respiratory-No evidence of respiratory issues. She is been in the hospital now for about a week I think we can discontinue precautions she is not c ontagious with RSV probably was not upon admission given that diagnosis was far enough in the past. Cough is improved continue prednisone for now 3. Nausea- patient reports significant improvement in nausea. However her appetite is not rebounded. Again there is no clear etiology for any of the a dwight 4. Cardiac-blood pressure okay for now 5. Question UTI-patient continues on oral amoxicillin. Plan to complete 1 week's duration antibiotic so will be able to discontinue after dosing on the 07 of July 6. Weakness-patient did better yesterday with physical therapy able to sit up in a chair. The nausea and dizziness seem better. Hopefully this is a trend that will continue, but if she is not eating and taking orals in well that is not likely to improve 7. Disposition-Patient is improved over status at time of admission. We have not found any further reversible medical issues. Not really receiving any specific skilled treatments here at the hospital beyond some skilled therapy. Therefore I would plan for discharge home with home health services probably tomorrow. Quality VTE Deep Vein Thrombosis/Pulmonary Embolism Present on Admission: No
--- NOTE | 2022-07-07 12:06 | PC.NURSE ---
Day shift: OOB to chair. 1 person min assist. She tolerated it well. Daughter in room for support. Call light in reach.
[2022-07-07] MEDS: ONDANSETRON 4 MG ODT SL (12:36)
--- NOTE | 2022-07-07 12:40 | PC.NURSE ---
Day shift: Pt having nausea and dry cough after eating half of her cheeseburger for lunch. Gave ODT Melissa per JUL. She wants to get back in bed after being in chair for lunch and we will make that happen now.
--- NOTE | 2022-07-07 15:29 | CM.DPC ---
DCP: This CM spoke with pt's daughter Sabrina who would expresses her wish to take her Mom home with hospice care. Sabrina, daughter stated that she really hasn't been eating and I think it's time to initiate hospice. This CM conferred with Sabrina, daughter. Pt resting in bed with her eyes closed. This CM called and spoke with Dr. Cheatham re. Daughter concern. Dr. Cheatham was in agreement. This CM discussed hospice options with pt's daughter Sabrina. [facility] was chosen. Referral faxed to Maggie at [facility] with a follow up call letting her know that a hospital bed and bedside table were in need. Per Ragini, they will reach out to the patient's daughter in the am to discuss the next step. This CM updated floor RN, Natan and pt's daughter, Sabrina of plan. P: Home with daughter and Hospice of the services. Ariana Bill RN Case Manager
[2022-07-07] MEDS: WARFARIN 5 MG TABLET 2.5 MG PO (15:47)
[2022-07-07] MEDS: NYSTATIN POWDER 15GM 1 APPLIC TOP (17:09)
[2022-07-08 04:00] VITALS: BP 128/54; PULSE 74; RESP 24; TEMP 36.3; O2SAT 96
--- NOTE | 2022-07-08 06:15 | PC.NURSE ---
No patient complaints from shift, expecting discharge today.
[2022-07-08] MEDS: METOCLOPRAMIDE HCL 5 MG TABLET PO ×3 (07:53→21:20)
--- NOTE | 2022-07-08 08:13 | PC.NURSE ---
Addendum entered by Kenia Phoenix R.N. 07/08/22 12:41: Patient up to sit in the chair with physical therapy, 20 minutes later patient wanted to lay back down as she states that she was nauseated. Explained to patient that lying in bed all shift is not good for her lungs and that we did not want her to develop pneumonia. Patient had a bowel movement and then her daughter wanted her to lay down. Not following staff direction well. Patient napping at this time. Original Note: Patient is alert and oriented x4, she denies pain. Given reglan po prior to breakfast, she has been getting nauseous half way through her meals. Patient has a pure wick and she was incontinent of urine this morning. She is a one person assist with ambulation and a walker. Lying supine with head up, waiting for breakfast. Patient able to answer her own questions but daughters talk over her. They are both helpful with care.
--- NOTE | 2022-07-08 08:28 | P.PN_ITS ---
Subjective Subjective Date Patient Seen: 07/08/22 Time Patient Seen: 08:28 Interval history: The yesterday was pretty much the same. She was up for little bit of time in the chair. Ate lunch there but within a few bites became quite nauseated and then became dizzy and had to lie down. Basically just continues to struggle with any sort of activity I and or oral ingestion. The only thing that is improved as her cough is definitely better. Family had discussion with discharge planning staff about possibility of taking their mother home to spend her final days at home with hospice. She clearly is declining she is lost a significant amount of weight as has been previously documented and she is just not improving. There is no medical reason that can be found no reversible cause for this at this point. Did discuss with patient and with daughters who are both with her in the room that we could try an antidepressant that would be the 1 thing that is not been tried. However they are pretty adamant that that is not inappropriate intervention feel like she is just kind of ready to be done and come to the end and they want to keep her comfortable and not force her to do anything which is the idea behind going home and going home with hospice Exam Vital Signs (past 8 hours): - 07/08/22 04:00 07/08/22 08:07 Temperature 97.4 F L Pulse Rate 74 Respiratory Rate 24 Blood Pressure 128/54 L Pulse Oximetry 96 Oxygen Delivery Method Room Air Oxygen Delivery Method Room Air Oxygen Flow Rate 1 Objective Labs 07/05/22 05:07 07/06/22 04:53 [facility] Medical History Age-related cognitive decline Cardiac arrhythmia Chronic atrial fibrillation (10/13/12) Disc degeneration, lumbosacral Essential hypertension Fibrocystic disease of both breasts Hyperlipidemia Irritable bowel syndrome 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) On anticoagulant therapy (11/03/12) Peripheral neuropathy Presence of cardiac pacemaker (09/20/14) Tachy-ness syndrome UTI (urinary tract infection) Surgical History Presence of cardiac pacemaker S/P total abdominal hysterectomy and bilateral salpingo-oophorectomy Status post cholecystectomy Status post dilation and curettage Status post tubal ligation Family History Father Rheumatoid arthritis Mother Breast cancer Social History marital status: household members: family Smoking Status: Never smoker alcohol intake: current Assessment & Plan Assessment & Plan narrative: Overall patient is essentially unchanged. Her cough is improved but that has not made any difference with her GI symptoms. She still very weak gets light headed dizzy whenever she sits up for extended time. She is just not cooperating with physical therapy in part because she is having significant symptoms when trying to be active. GI symptoms are not improving. Weight loss persists. I think we have treated all the reversible causes for her ongoing symptoms and have failed to make any real progress accept perhaps with her cough. At this point I am in support of sending patient home with hospice as it seems like she will continue to decline in the home setting and this is likely terminal in less than 6 months which would be the qualifying issue for hospice There will need to be some logistics set up and so discharged today is probably not appropriate but plan for discharge tomorrow. Patient would benefit from being able to go home with the assistance of an ambulance to help get her up into the home as well. Had a discussion about continuing or not continuing with warfarin and doing protime checks which would be required if she is to continue with warfarin. The warfarin is of course stroke risk reduction in the setting of the atrial fibrillation. If patient continues her clinical course she will continue to decline and likely in the next few weeks and that is setting stroke risk reduction is probably not important. The biggest danger that I foresee would be a minor stroke causing significant disability at home but not being fatal. I think that is low likelihood and after discussion with patient and with lucy reina's daughters we have elected to discontinue warfarin therapy which I thinks inappropriate decision As far as home medications I would continue her on relatively low-dose prednisone since I think that helped with the cough and may further stimulate appetite. I would continue her antihypertensives. I would continue her symptom based medications including something for cough as necessary oral Zofran for nausea This point will plan for discharge likely tomorrow with initiation of hospice services as they are able to start patient on services Time Spent With Patient Critical Care time: I spent a total of [] minutes of critical care time on this patient's care today; this time is exclusive of procedural time. Quality VTE Deep Vein Thrombosis/Pulmonary Embolism Present on Admission: No
--- NOTE | 2022-07-08 08:36 | CM.DPC ---
Addendum entered by Kaykay Flowers R.N. 07/08/22 14:59: Spoke to Teresa at [facility]. She called daughter, Sabrina. She ordered equipment to be delivered to her home tomorrow in the am, including hospital bed, oxygen, and bedside table. Daughter already has bedside commode, walker, and wheel-chair. They will do info visit over the phone tomorrow. Plan is for patient to be picked up here for home at 1400. Daughter also has [facility] in place. BLS form completed, will need provider to sign. Addendum entered by Kaykay Flowers R.N. 07/08/22 12:06: Teresa at [facility] still working on referral, confirmed with Catherine at [facility]. Spoke to patient's daughter, Sabrina, who has been at bedside. Discussed home tomorrow. Asked about car versus ambulance. Daughter stated, feels that she should go ambulance, patient continues with nausea and vomiting, weakness. Let her know that she could receive a bill for transportation, is not guaranteed that this is a covered service, daughter is aware. Went ahead and called Ambulance and set up transport for tomorrow for supervisor opening and picking at 1400. Discussed this with daughter prior, for time of supervisor opening and picking. Have a POLST form, attached with face sheet, BLS form completed, but will need Dr. Cheatham to sign form. At this time, it is unclear when hospice will open, but hopeful that equipment can be delivered either today or tomorrow. Addendum entered by Kaykay Flowers R.N. 07/08/22 09:06: Spoke to Sage at [facility], for he called inquiring on update on patient. Let him know that patient will be going to hospice services, he is now aware. Original Note: DCP Cont: Patient's daughter, Sabrina, called this DC Instructional Consultant, mentioned that Dr. Cheatham is planning on discharging patient home tomorrow. Let her know that this DC Instructional Consultant will contact [facility] to see if equipment can be delivered today, or tomorrow. Spoke to Teresa at [facility]. She stated that they just received the referral last pm, she will call back with updates and work on equipment. P: DCP to continue to follow. Will follow up with Hospice the today, and will update daughter. Let her know to expect a phone informational visit. Kaykay Flowers RN/[employer]
[2022-07-08] MEDS: predniSONE 20 MG TABLET 10 MG PO (09:28)
[2022-07-08] MEDS: METOPROLOL IR 25 MG TABLET 12.5 MG PO ×2 (09:28→21:19)
[2022-07-08] MEDS: GUAIFENESIN/DM 200/20 MG/10 ML UDC PO (09:58)
--- NOTE | 2022-07-08 10:35 | PT.IPTN ---
Current Diagnoses Dehydration (07/05/22) Physical Therapy Treatment Note M2 PT-IP Current Condition Start: 07/02/22 11:05 Freq: NEEDED Status: Active Protocol: Document 07/08/22 10:14 SP (Rec: 07/08/22 12:03 SP [id number]) Physical Therapy Current Condition Current Condition Evaluation Date 07/02/22 Treatment Diagnosis RSV; GI bleed; difficulty in walking Onset Date 07/01/22 M3 PT-IP Subjective Start: 07/02/22 11:05 Freq: NEEDED Status: Active Protocol: Document 07/08/22 10:14 SP (Rec: 07/08/22 12:03 SP [id number]) Subjective Physical Therapy Visit Type Type Treatment Note Visit Start Time 10:14 Visit Stop Time 10:35 Total Visit Minutes 21 Notes Daughter in room observed tx. Vitals taken: supine: BP 143/82 HR 69 SaO2 mid 90s Seated: 138/75 HR 74 Seated in chair post mobility: 150/88 HR 69 SaO2 mid 90s symptomatic nausea and lightheaded. Number of [employer] Visits 1 Physical Therapy Visit Comments Patient Comments Pt agreeable to do PT. States dizziness and nausea but willing to mobilize. Therapy Pain Assessment Pain When Pain Assessed During Mobility Pain Present Pain Present Denied Pain M4 PT-IP Mobility and Gait Start: 07/02/22 11:05 Freq: NEEDED Status: Active Protocol: Document 07/08/22 10:14 SP (Rec: 07/08/22 12:03 SP [id number]) PT-Bed Mobility Assessment Supine to Sit Supine to Sit Standby Assistance Scooting Scooting to Edge of Bed Standby Assistance PT-Transfer Assessment Sit to and From Stand Sit to and from Stand Contact Guard Assistance, Minimal Assistance,1 Person Assistance,Use of Upper Extremities Equipment Transfer Assistive Device Gait Belt,Front Wheeled Walker Transfers Transfer Destination Bed,Chair Transfer Technique ambulated with FWW Transfer Ability Level of Assist Contact Guard Assistance, Minimal Assistance,1 Person Assistance,Use of Upper Extremities Comments Mobility Comments Decreased mobility tolerance due to symptomatic of lightheadeness and nausea, stable vitals throughout tx. SBA for bed mob, CG/Maribel w/ FWW for transfers and short distance bed>chair with increasec support of stability and repositioning of FWW and directioning around end bed and pivot fully back to chair with hand over hand reach to sit no carryover. Pt was reclined in chair with tray, encouraged hydration and daughter stated will support her, Care Mgt in room when left. [employer] notified nursing pt symptomatic nausea/ lightheaded to please check on and may want to return to bed . Daughter stated I have been assisting pt with call light, noted over head on IV pole ring. Kenia verbalized confirmation. Gait Assessment Gait Gait Assistance Required: Contact Guard Assist,Minimum Assistance,1 Person Assist Distance (Feet) 15 Assistive Devices Assistive Device Gait Belt,Front Wheeled Walker Orthotic/Prosthetic Devices or Brace: No Gait Deviations General Gait Pattern Antalgic,Decreased Stride Length,Decreased Feet Clearance,Flexed Trunk,Narrow Based Gait Factors Limiting Gait Function Factors Limiting Gait Function Decreased Activity Tolerance, Decreased Strength,Difficulty Following Directions,Limited Range of Motion,Poor Balance, Poor Safety Awareness Comments Gait Comments see mobility comments Stair Climbing Assessment Comments Stair Climbing Comments Unable to assess due to nausea and lightheadeness symptomatic. Pt has 4 stairs with 1 wide handrail to enter home, if were to go home recommend BLS. PT-Balance Assessment Sitting Balance and Reactions Static Sitting Balance Ability Fair Dynamic Sitting Balance Ability Poor Standing Balance and Reactions Static Standing Balance Ability Fair Dynamic Standing Balance Ability Poor Device Used FWW M5 PT-IP Objective Assessments Start: 07/02/22 11:05 Freq: NEEDED Status: Active Protocol: Document 07/02/22 09:30 AB (Rec: 07/02/22 11:15 AB [id number]) Orientation Orientation/Cognition Level of Alertness Alert Orientation Name,Place,Situation Memory Description Short Term Impaired Gross Range of Motion Lower Extremity ROM Assessment Within Functional Limits Strength Lower Extremity Strength Hip 4-/5 Knee 4-/5 Muscle Tone Muscle Tone WNL Yes M6 PT-IP Treatment Start: 07/02/22 11:05 Freq: NEEDED Status: Active Protocol: Document 07/08/22 10:14 SP (Rec: 07/08/22 12:03 SP [id number]) Physical Therapy Treatment Education Education Provided Safety M7 PT-IP Assessment and Plan Start: 07/02/22 11:05 Freq: NEEDED Status: Active Protocol: Document 07/08/22 10:14 SP (Rec: 07/08/22 12:03 SP [id number]) PT Summary Assessment and Plan Potential Rehabilitation Potential Fair Status of Condition at Evaluation Evolving Summary Impairments Pain,ROM,Strength,Balance, Coordination,Sensation,Tone, Cognition,Bed Mobility, Transfers,Gait,Activity Tolerance Progress Towards Goals Slow Progress due to Medical Issues,Slow Progress due to Activity Tolerance Assessment Summary Pt unable to increase ambulation this tx due to symptomatic lightheadedness and nausea. CG- Min A x1 for safety support transfers and gait with FWW management and posture. BP remained stable throughout session in all positions whether laying, sitting, or ambulating. Unable to assess stair mgt due to symptomatic. Recommending 24/7 available family/caregivers vs SNF due to physical need and safety with vitals. Would need BLS to enter home due to unable to assess safety on stairs/further distance gait. Speaking with care mgt, pt is going home tomorrrow with Hospice,[employer] spoke with care mgt will need FWW dispensed for transfers and family should look into BSC if needed . Will continue to assess progress. Goals Bed Mobility Goal Independent Transfer Goal Contact Guard Assistance,Front Wheeled Walker Gait Goal Contact Guard Assistance,Front Wheel Walker Gait Distance 100 Other Goals improve transfers and ambulation using FWW/4WW SBA 150 ft 4 steps 1 rail SBA Days to Meet Goals 10 Frequency of Treatment Frequency Of Treatment Once a Day Treatment Plan Physical Therapy Treatment Plan Bed Mobility Training,Transfer Training,Gait Training, Therapeutic Exercise,Balance Retraining,Discharge Planning, Hot or Cold Pack,Neuromuscular Re-ed,Coordination Retraining ,Manual Therapy Other Recommendations and Next Treatment check vitals, progress gait w/ Focus FWW, stair mgt 4 stairs WHR and CGT with daughter. Dispense FWW, recommend BSC Precautions Other Precautions falls; BP Recommendations To Nursing Amount of Assist Needed 1 Person Assist Discharge Recommendations PT Discharge Recommendations Home with 24/7 Assist Available,Home Health Equipment Needed for Home Before FWW if going home (not safe w/ Discharge 4WW), BSC if don't have one Transportation Needs at Discharge Stretcher/Ambulance
[2022-07-08] MEDS: ONDANSETRON 4 MG ODT SL ×2 (10:46→19:46)
[2022-07-08 11:58] VITALS: BP 150/88; PULSE 71; RESP 16; TEMP 35.9; O2SAT 97
[2022-07-08 19:00] VITALS: O2SAT 95
[2022-07-08 20:00] VITALS: BP 113/60; PULSE 73; RESP 20; TEMP 36.3; O2SAT 95
[2022-07-09 07:00] VITALS: O2SAT 96
[2022-07-09 08:13] VITALS: BP 115/72; PULSE 74; RESP 17; TEMP 36.6; O2SAT 96
[2022-07-09] MEDS: METOPROLOL IR 25 MG TABLET 12.5 MG PO (08:19)
[2022-07-09] MEDS: METOCLOPRAMIDE HCL 5 MG TABLET PO ×2 (08:19→11:27)
[2022-07-09] MEDS: predniSONE 20 MG TABLET 10 MG PO (08:19)
--- NOTE | 2022-07-09 08:27 | P.DS_ITS ---
History of Present Illness History of Present Illness Date Patient Seen: 07/09/22 Time Patient Seen: 08:27 Chief complaint: RSV not eating/diarrhea/nausea Narrative: 86-year-old female who normally sees Dr. Zane Shine admitted via emergency department with increasing weakness. She is had some nausea vomiting as well. Patient apparently diagnosed with RSV on 06/19/2022. She is some better than that but is persisting with limited oral intake some nausea diarrhea etcetera. Coughing is the part that is much better. Family with whom she lives has noticed that she is increasingly weak requiring assistance with her ADLs and getting to the bathroom which is not the case at baseline. Diarrhea has been normal up until the last episode 1 was somewhat darkish in color. This was several hours prior to my evaluation, and she is had no further stool output per family. There apparently been no fever chills nausea vomiting. (Patient with an element of dementia difficult to obtain an accurate history from patient herself). Patient also recently had a UTI treated via the walk-in clinic with appropriate antibiotic therapy. Patient on warfarin and has missed several INR checks recently because of her illness. She was also recently started on flecainide by Cardiology which may have affected her INR in this interval ER evaluation demonstrates slight increasing creatinine, INR 6.2. Normal hemoglobin hematocrit (actually somewhat hemoconcentrated with elevated hematocrit), normal white blood cell count and platelet count. Urinalysis is not yet been obtained. Chest x-ray unremarkable as his ECG which demonstrates her chronic atrial fibrillation. Patient is also guaiac-positive although stool obtained did not appear to be visually bloody or melanotic per ER provider. Patient with history of chronic atrial fibrillation chronically anticoagulated due for pacemaker replacement as it is at end of battery life. Recently started on flecainide by Cardiology (as per Cardiology PAs notes) in effort to cardiovert her prior to pacemaker change. Discharge Providers Provider Date of admission: 07/05/22 09:41 Discharge Date: 07/09/22 Primary care physician: Zane Shine MD Consults: 07/01/22 18:06 Consult to Discharge Planning Routine Comment: Consult to Physical Therapy Evaluate & Treat Comment: Physician Instructions: Evaluate and Treat Discharge provider: Ollie Cheatham MD Summary Hospital Course Discharge Diagnosis: 1. Guaiac-positive stool with possible GI bleed secondary to iatrogenic coagulopathy 2. Iatrogenic coagulopathy secondary to warfarin, resolved 3. Chronic atrial fibrillation 4. Intractable nausea and vomiting 5. Acute severe protein calorie malnutrition due to intractable nausea and vomiting 6. Positive RSV swab status post RSV prior to admission 7. Persistent cough status post RSV infection 8. Vascular dementia 9. Presence of pacemaker, at end of life Hospital Course: Patient was admitted as above with guaiac-positive stool coagulopathy with INR in excess of 6. She was monitor but did not show any evidence of large volume bleeding. Her warfarin anticoagulation was reversed with vitamin K and she was held off of warfarin for several days until was determined that she was not actively bleeding. In the end I felt as though her guaiac-positive stool was likely more secondary to the coagulopathy than any actual volume bleeding. Warfarin was re-initiated briefly prior to decision making to discontinue this at time of discharge with hospice Patient did have a persistent cough thought to be secondary to her prior RSV infection. She had RSV in early mid June and seem to be mostly better with a persistent cough. Cough seem to be producing some nausea. She was given the usual cough suppressants without real benefit. Eventually prednisone was initiated which maybe improved her cough somewhat. In any event her cough did improve however her nausea did not improve. She was never hypoxic never showed signs of active pneumonia etcetera Patient with persistent nausea vomiting and anorexia. She had already sustained significant weight loss and was felt to have acute severe protein calorie malnutrition. Despite multiple antiemetics and even institution of prednisone that did not seem to be any real improvement in patient's overall status. Patient remained quite weak and dizzy when sitting up although this improved s lightly during her hospitalization was still a limiting factor likely secondary to her weight loss. Given this persistence of weight loss without clear etiology (despite lab work CT scan etcetera) it was felt as though patient was not likely to improve significantly during this hospitalization family elected to have her discharged home with hospice given her ongoing lack of oral intake and weight loss Patient does have chronic atrial fibrillation with a pacemaker in place and pacemaker is at end of life she was due for generator replacement in July and prior to that had been started on flecainide by Cardiology. It was thought perhaps the flecainide was a contributing factor to her persistent nausea vomiting and anorexia and was discontinued however there was no change in her GI symptoms. Ultimately given patient's continued decline without reversibility patient will be discharged home with plans to cancel the pacemaker generator replacement Overall patient was somewhat improved at time of discharge with decreasing cough but persistence nausea with anorexia. She was able to sit up for longer and longer periods of time but still quite weak with evidence of dizziness. It was felt as though she would best be served by discharge home with hospice given her clinical decline over the last several weeks seem likely that she would continue this decline and most likely in the next several weeks unless something happened to reverse her course. She will remain off of flecainide she had her dose metoprolol reduced because of hypotension and orthostasis she will continue on lower dose metoprolol. She will continue with her other usual medications with the exception of warfarin. Again given patient's clinical decline plan for hospice the long-term need for stroke risk reduction was felt to be less important than continued careful management of her active symptoms at home and warfarin would require ongoing protime evaluation and decision-making was held with patient's family and myself we decided to discontinue warfarin running the risk of possible stroke although that risk was felt to be relatively small in the short term Status at Discharge Cognitive/behavioral status at discharge: at baseline, confused Functional status at discharge: bed bound Overall status at discharge: patient is not back to baseline Time Spent with Patient Time spent: Greater than 30 minutes Exam Vital Signs (past 8 hours): - 07/09/22 08:13 Temperature 97.8 F Pulse Rate 74 Respiratory Rate 17 Blood Pressure 115/72 Pulse Oximetry 96 Oxygen Flow Rate 0 Oxygen Delivery Method Room Air Oxygen Flow Rate 0 Objective Labs 07/05/22 05:07 07/06/22 04:53 [facility] Medical History Age-related cognitive decline Cardiac arrhythmia Chronic atrial fibrillation (10/13/12) Disc degeneration, lumbosacral Essential hypertension Fibrocystic disease of both breasts Hyperlipidemia Irritable bowel syndrome 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) On anticoagulant therapy (11/03/12) Peripheral neuropathy Presence of cardiac pacemaker (09/20/14) Tachy-ness syndrome UTI (urinary tract infection) Surgical History Presence of cardiac pacemaker S/P total abdominal hysterectomy and bilateral salpingo-oophorectomy Status post cholecystectomy Status post dilation and curettage Status post tubal ligation Family History Father Rheumatoid arthritis Mother Breast cancer Social History marital status: household members: family Smoking Status: Never smoker alcohol intake: current Discharge Plan Discharge Plan Patient Disposition: Hospice - Home Discharge orders & Medications Prescriptions: New benzonatate 100 mg Capsule 100 mg PO Q8H PRN (Reason: Cough) Qty: 60 0RF metoprolol tartrate 25 mg Tablet 12.5 mg PO BID Qty: 30 2RF prednisone 10 mg tablet 10 mg PO DAILY Qty: 60 0RF ondansetron 4 mg Tablet,Disintegrating 4 mg sublingual Q6HR PRN (Reason: Nausea) Qty: 60 0RF Continued losartan 50 mg tablet See Rx Instructions .ROUTE .COMPLEX Qty: 90 0RF Dose Instruction: TAKE 1 TABLET BY MOUTH EVERY DAY Rx Instructions: TAKE 1 TABLET BY MOUTH EVERY DAY dorzolamide 2 % drops 1 drp ophthalmic (eye) DAILY Discontinued metoprolol tartrate 50 mg tablet 75 mg PO BID Qty: 270 3RF warfarin 5 mg tablet See Rx Instructions PO SEE INSTRUCTIONS Qty: 60 3RF Rx Instructions: Take 1/2 tab (2.5 mg) Friday and Friday. Take 1 tablet (5 mg) all other days or as directed. flecainide 50 mg tablet 50 mg PO BID Follow up/Referrals: Zane Shine MD [Primary Care Provider] - 2 Weeks Discharge Health Status Multidrug resistant organism: No MDRO Diet/Activity/Treatments Diet: Diet as Tolerated Visit Report/Discharge Packet Stand Alone Forms: Patient Portal/API Discharge Data Primary Care Provider: Zane Shine Quality VTE Deep Vein Thrombosis/Pulmonary Embolism Present on Admission: No
[2022-07-09] MEDS: ACETAMINOPHEN 325 MG TABLET 650 MG PO (11:27)
--- NOTE | 2022-07-09 14:05 | PC.NURSE ---
TV TECHNICIAN assisted Pt with bedbath and dressing for BLS p/u. Reviewed paperwork with pt's daughter regarding new meds to p/u at pharmacy, stroke education, new med education sheets and hospice consult info opening via phone at 1600. Pt d/c w/ BLS and daughter @ [phone] with all belongings going with daughter.
== END 2022-07-09 14:19 | disposition hospice, home (50) | DRG 641 ==
LOC: ED 16:34 → AC 16:35
PROVIDERS: Admitting Provider Internal Medicine; Emergency Provider Student in an Organized Health Care Education/Training Program; PCP Family Medicine; Referring Provider Student in an Organized Health Care Education/Training Program; Visit Provider Internal Medicine
DX: E43 Unspecified severe protein-calorie malnutrition (principal); D68.32 Hemorrhagic disorder due to extrinsic circulating anticoagulants; I48.20 Chronic atrial fibrillation, unspecified; K92.2 Gastrointestinal hemorrhage, unspecified; R11.2 Nausea with vomiting, unspecified; T45.515A Adverse effect of anticoagulants, initial encounter; E86.0 Dehydration; B97.4 Respiratory syncytial virus as the cause of diseases classified elsewhere; I95.1 Orthostatic hypotension; E87.6 Hypokalemia; R10.9 Unspecified abdominal pain; F01.50 Vascular dementia, unspecified severity, without behavioral disturbance, psychotic disturbance, mood disturbance, and anxiety; I10 Essential (primary) hypertension; Z79.01 Long term (current) use of anticoagulants; Z95.0 Presence of cardiac pacemaker; Z20.822 Contact with and (suspected) exposure to COVID-19; Z68.23 Body mass index [BMI] 23.0-23.9, adult
CPT/HCPCS: 0241U; 36415; 71046; 74022; 74177; 80048; 80053; 80076; 81001; 82272; 82550; 83605; 83690; 83735; 84484; 85014; 85018; 85025; 85610; 85730; 87045; 87899; 93005; 93010; 96374; 96375; 97110; 97116; 97163; 97530; 99223; 99232; 99233; 99238; 99284; G0378; J0290; J2405; J3430; Q9967

== ENCOUNTER → 2022-07-12 10:08 | Outpatient (CLI) | payer OTHER, SELFPAY ==
[2022-07-09 08:57] VITALS: BMI 23.5
[2022-07-12 10:38] LABS: Appearance Urine UA CLOUDY; Color Urine UA ORANGE
== END ==
PROVIDERS: PCP Family Medicine; Referring Provider Family Medicine; Visit Provider Family Medicine
DX: R30.0 Dysuria (principal)
CPT/HCPCS: 81003; 87077; 87086; 87186